=== PATIENT | male | born 1975 | race African-American/Black ===

== ENCOUNTER 2020-09-26 14:40 | Inpatient (IN) ==
[2020-09-26] MEDS ORDERED: DEXAMETHASONE SOD INJ 10 MG/ML VIAL IV ONE (15:14)
[2020-09-26] MEDS ORDERED: ALBUT/IPRATROP 3MG/0.5MG NEB 3 ML VIAL INH STA (15:14)
[2020-09-26 15:42] LABS: INR 1.1 (0.9-1.1); Partial Thromboplastin Ratio 1.1; Partial Thromboplastin Time 29.9 Seconds (21.0-31.0); Prothrombin Time 11.5 Seconds (9.0-12.0)
--- NOTE | 2020-09-26 15:47 | XRay Report ---
XR chest 1V portable CLINICAL HISTORY: Dyspnea COMPARISON STUDY: No previous studies for comparison. FINDINGS: The heart is enlarged. There are multifocal airspace opacity suspicious for a multifocal pn eumonia. Correlation with Covid 19 testing is recommended. There are no large pleural effusions.[ IMPRESSION: Multifocal airspace opacity suspicious for a multifocal pneumonia. Clinical and radiograp hic follow-up is recommended. ACT 112: Negative or not required by law. Electronically signed by: Marcin Humphries M.D. 09/26/2020 3:46 PM
[2020-09-26 15:51] LABS: Albumin Level 3.1 gm/dl (3.4-5.0); BUN Creatinine Ratio 10.2 (10-20); Calcium 8.7 mg/dl (8.5-10.1); Creatinine Clr Calc Pharmacy 120.5 ml/min; Est GFR (African American) 86.2; Est GFR (Non-African American) 74.4; Magnesium 2.6 mg/dl (1.8-2.4); Potassium 3.9 mmol/L (3.5-5.1)
[2020-09-26 15:56] LABS: Albumin Globulin Ratio 0.6 (0.9-2); Bilirubin,Total 0.8 mg/dl (0.2-1); Globulin 4.9 gm/dl (2.5-4.0); Troponin I 0.022 ng/ml (0-0.045)
[2020-09-26 16:19] LABS: Appearance Urine Clear (Clear); Bilirubin Urine Negative (Negative); Blood Urine Trace (Negative); Color Urine Yellow; Glucose Urine UA Negative (Negative); Ketones Urine Negative (Negative); Leukocyte Esterase Urine Negative (Negative); Nitrite Urine Negative (Negative); Protein Urine 1+ (Negative); Specific Gravity Urine 1.006 (1.000-1.030); Urobilinogen Urine Negative (Negative)
[2020-09-26 16:31] LABS: Bacteria Urine Negative (Negative); Epithelial Cell Urine 0-5 /lpf (0-5); RBC Urine 0-4 /hpf (0-4); WBC Urine 0-5 /hpf (0-5)
[2020-09-26 16:34] LABS: Hematocrit (blood only) 48.8 % (42-52); Hemoglobin 13.4 g/dL (14.0-18.0); Mean Corpuscular Hemoglobin 18.8 pg (25-34); Mean Corpuscular Hgb Conc 27.5 g/dL (32-36); Mean Corpuscular Volume 68.4 fL (80-100); Nucleated RBC # (auto) 0.39 K/uL (0-0); Platelet Count 245 K/uL (130-400); RDW Coefficient of Variation 23.7 % (11.5-14.5); RDW Standard Deviation 57.1 fL (36.4-46.3); Red Blood Count 7.13 M/uL (4.7-6.1); White Blood Count 7.77 K/uL (4.8-10.8)
[2020-09-26 16:36] LABS: Anisocytosis Present; Basophils # (auto) 0.05 K/uL (0-0.2); Basophils % (auto) 0.6 %; Eosinophils # (auto) 0.01 K/uL (0-0.5); Eosinophils % (auto) 0.1 %; Immature Granulocytes # (auto) 0.05 K/uL (0.00-0.02); Immature Granulocytes % (auto) 0.6 %; Lymphocytes # (auto) 1.45 K/uL (1.2-3.4); Lymphocytes % (auto) 18.7 %; Microcytosis Present; Monocytes % (auto) 14.2 %; Neutrophils # (auto) 5.11 K/uL (1.4-6.5); Neutrophils % (auto) 65.8 %; Polychromasia 1+
[2020-09-26 16:42] LABS: Influenza A virus by PCR Negative (Negative); Influenza B virus by PCR Negative (Negative)
--- NOTE | 2020-09-26 16:49 | Electrocardiogram Report ---
Test Reason : Blood Pressure : / mmHG Vent. Rate : 089 BPM Atrial Rate : 089 BPM P-R Int : 178 ms QRS Dur : 102 ms QT Int : 366 ms P-R-T Axes : 051 237 068 degrees QTc Int : 445 ms Normal sinus rhythm Possible Left atrial enlargement Poor R wave progression, consider anterior MS vs. lead placement vs. LVH Abnormal ECG No previous ECGs available Confirmed by Archie Valiente ([id number]) on 09/26/2020 4:49:08 PM Referred By: REFERRED SELF Confirmed By:Julio Cesar Valiente
[2020-09-26 17:24] LABS: Influenza A virus by PCR Negative (Neg); Influenza B virus by PCR Negative (Neg); RSV by PCR Negative (Neg)
[2020-09-26 18:02] LABS: SARS CoV2 RNA(COVID-19) InHosp POSITIVE (Negative)
--- NOTE | 2020-09-26 19:05 | History & Physical Report ---
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 Pt states that some of his family has recently had COVID. He isolated from them, however started noticing SOB with exertion over the last few days. It started at rest as well today so he came to the ED. Pt denies fever, abd pain, n/v/c/d, LE pain or swelling. He has been eating without issue. He feels better s/p O2 and steroids. He states a tightness in his chest with the heavy breathing, but no lucas SOB. Pt has recently moved to the area and has had difficulty in setting up a new PCP and urologist. He also uses HS O2 and cannot get this refilled due to needing new docs. Primary Care Provider: Josue Pryor DO Allergies Allergy/AdvReac Type Severity Reaction Status Date / Time lisinopril AdvReac Severe swelling Verified 09/26/20 16:38 of face sulfamethoxazole AdvReac Severe swelling Verified 09/26/20 16:38 [From Bactrim] of face trimethoprim [From Bactrim] AdvReac Severe swelling Verified 09/26/20 16:38 of face Home Medications Medication Instructions Recorded Confirmed Type albuterol sulfate 1 puff INHALATION QID PRN 04/19/20 09/26/20 History amlodipine 5 mg PO DAILY 04/19/20 09/26/20 History hydrochlorothiazide 12.5 mg PO DAILY 04/19/20 09/26/20 History tadalafil 5 mg PO DAILY PRN 04/19/20 09/26/20 History valsartan 160 mg PO DAILY 04/19/20 09/26/20 History carisoprodol [Soma] 250 mg PO HS PRN 09/26/20 09/26/20 History diclofenac sodium [Voltaren] 2 g TOPICAL QID PRN 09/26/20 09/26/20 History Past Med/Surg History Medical History (Updated 09/26/20 @ 19:09 by Billie Elias DO) Hypertension Polycythemia Testicular torsion Surgical History History of arthroscopic knee surgery Social History Smoking Status: Current every day smoker Tobacco Type: Cigarettes Preferred Language: Palauan marital status: Single Current Living Situation: Significant Other current occupational status: employed Feels Safe at Home: Yes Review of Systems Review of Systems: Pertinent positives and negatives reviewed in HPI--all others negative Physical Exam Constitutional: WD/WN, vitals as above + morbidly obese Eyes: normal visual chand by confrontation and + anicteric sclerae Neck: normal visual inspection and trachea midline Respiratory: normal respiratory effort; no respiratory distress Auscultation: + diminished lung sounds and + crackles; no wheezes Cardiovascular: Rate/Rhythm: regular rate and regular rhythm Gastrointestinal (Abdomen): Inspection/Auscultation: abdomen not distended Percussion/Palpation: abdomen soft; abdomen nontender Musculoskeletal: Head/Neck/Chest: normocephalic and head atraumatic negative for edema, peripheral pulses intact Skin: no rashes, warm and dry Neurologic: awake; not confused Speech / Cognition: normal speech Psychiatric: A+Ox3, euthymic affect Results & Data Results & Data ([facility]) Vital Signs (Past 12 Hours) Vital Signs Temp Pulse Pulse Resp BP Pulse Ox 09/26/20 18:00 96 H 22 98 09/26/20 17:30 100 H 24 88 L 09/26/20 16:50 101 H 21 126/91 92 09/26/20 16:30 91 H 20 92 09/26/20 16:03 93 H 24 91 09/26/20 15:57 93 H 24 92 09/26/20 15:30 99 H 24 116/76 92 01/25/21 15:08 98 H 20 104/79 95 09/26/20 14:53 36.9 C 104 H 24 157/111 H 83 L Diagnostic Findings CXR: multifocal PNA ECG Rhythm: normal sinus Code Status & VTE Plan Code Status Full code VTE Prophylaxis Plan VTE Prophylaxis will be ordered: Yes PG Care Time/CCT Total # of Minutes Spent Total Time Spent with Patient: Total time spent is greater than 50% in co ordination of care (as documented) at patient's floor/unit and/or counseling patient: Coding Level of Care Code 11052 Initial Inpt Care Lvl 3 Diagnoses Hypoxia R09.02 Testicular torsion N44.00 Hypertension I10 Polycythemia D75.1 Tobacco use disorder F17.200 DVT prophylaxis Z29.9 TELMA (obstructive sleep apnea) G47.33
[2020-09-26] MEDS ORDERED: DICLOFENAC SOD 1% GEL 100 GM TUBE EXT PRN (20:42)
[2020-09-26] MEDS ORDERED: MAGNESIUM HYDROXIDE SUSP 30 ML UDC PO PRN (20:42)
[2020-09-26] MEDS ORDERED: ALBUTEROL HFA 8 GM INHALER INH PRN (20:42)
[2020-09-26] MEDS ORDERED: NON-FORMULARY MEDICATION (Tadalafil 5 mg Tablet) PO PRN (20:42)
[2020-09-26] MEDS ORDERED: ONDANSETRON INJ 2 MG/ML 2 ML VIAL IV PRN (20:42)
[2020-09-26] MEDS ORDERED: ACETAMINOPHEN 325 MG TAB PO PRN (20:42)
[2020-09-26] MEDS ORDERED: NICOTINE 21 MG/24 HR TDSY TD PRN (20:42)
[2020-09-26] MEDS ORDERED: dexAMETHasone 1 MG TAB PO ONE (21:00)
[2020-09-26] MEDS ORDERED: CARISOPRODOL 350 MG TABLET PO PRN (21:04)
[2020-09-26] MEDS: HEPARIN SOD 5,000 UNIT/0.5 ML VIAL SQ SCH (21:41)
[2020-09-26] MEDS: ALBUT/IPRATROP 3MG/0.5MG NEB 3 ML VIAL NEB SCH (22:02)
[2020-09-27] MEDS: ALBUT/IPRATROP 3MG/0.5MG NEB 3 ML VIAL NEB SCH ×2 (02:11→07:13)
[2020-09-27] MEDS: HEPARIN SOD 5,000 UNIT/0.5 ML VIAL SQ SCH ×3 (05:34→20:54)
[2020-09-27] MEDS ORDERED: ALBUT/IPRATROP 3MG/0.5MG NEB 3 ML VIAL NEB PRN (08:20)
--- NOTE | 2020-09-27 08:21 | Hospitalist Progress Note ---
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, needs a local appt set up prior to d/c (3) Hypertension: not well controlled continue home meds but increase amlodipine and continue valsartan hydralazine and clonidine prn (4) Polycythemia: by history not high hgb at present (5) Tobacco use disorder: Nicotine patch (6) DVT prophylaxis: Lovenox for DVT proph Needs a PCP in the area (7) TELMA (obstructive sleep apnea): Denies TELMA hx, but states he sleeps with home O2 and has been out Unable to refill due to no local PCP Will need rx for this on d/c if so Admission and Anticipated Discharge Date Admission Date: September 26, 2020 Results & Data Results & Data ([facility]) Vital Signs (Past 12 Hours) Vital Signs Temp Pulse Pulse Pulse Resp BP BP 09/27/20 08:00 09/27/20 07:24 97.7 F 84 26 H 138/76 09/27/20 07:13 90 18 09/27/20 03:39 97.9 F 98 H 19 161/92 H 09/27/20 02:11 92 H 20 09/26/20 23:38 98.6 F 89 22 151/80 H 09/26/20 22:05 82 18 09/26/20 21:53 91 H 09/26/20 21:04 98.2 F 88 22 151/90 H 09/26/20 20:43 98.2 F 85 16 151/90 H Pulse Ox Pulse Ox 09/27/20 08:00 91 09/27/20 07:24 92 09/27/20 07:13 92 09/27/20 03:39 95 09/27/20 02:11 97 09/26/20 23:38 93 09/26/20 22:05 90 09/26/20 21:53 09/26/20 21:04 92 09/26/20 20:43 95 95 PG Care Time/CCT Total # of Minutes Spent Total Time Spent with Patient: Total time spent is greater than 50% in coordination of care (as documented) at patient's floor/unit and/or counseling patient: Coding Level of Care Code 13190 Subseq Hosp Care Lvl 3 Diagnoses Hypoxia R09.02 Testicular torsion N44.00 Hypertension I10 Polycythemia D75.1 Tobacco use disorder F17.200 DVT prophylaxis Z29.9 TELMA (obstructive sleep apnea) G47.33
[2020-09-27] MEDS: VALSARTAN 80 MG TAB PO SCH (08:55)
[2020-09-27] MEDS: hydroCHLOROthiazide 25 MG TAB PO SCH (08:56)
[2020-09-27] MEDS ORDERED: amLODIPine BESYLATE 5 MG TAB PO SCH (09:00)
[2020-09-27] MEDS ORDERED: dexAMETHasone 4 MG TAB PO SCH (09:00)
[2020-09-27] MEDS ORDERED: REMDESIVIR 200 MG in SODIUM CHLORIDE 0.9% 210 ML IV ONE (09:00)
[2020-09-27] MEDS ORDERED: SODIUM CHLORIDE 0.9% 10ML FLUSH IV SCH (09:00)
[2020-09-27] MEDS: dexAMETHasone 6 MG in SYRINGE 0 ML IV SCH (10:12)
[2020-09-27] MEDS: BENZONATATE 100 MG CAPSULE PO SCH ×2 (15:02→20:53)
[2020-09-27] MEDS ORDERED: cloNIDine HCL 0.1 MG TAB PO PRN (17:18)
[2020-09-27] MEDS ORDERED: hydrALAZINE HCL 20 MG/ML VIAL IV PRN (17:18)
[2020-09-27] MEDS ORDERED: amLODIPine BESYLATE 5 MG TAB PO STA (17:28)
--- NOTE | 2020-09-27 22:56 | Emergency Department Note ---
Impression & Plan Pneumonia due to 2019 novel coronavirus, Hypoxia, Morbid obesity with BMI of 50.0-59.9, adult ED Provider Note NAME: SHELBY LLOYD AGE: 45 SEX: M ARRIVES VIA: Ambulance INFORMANT: Patient ED PROVIDER(S): Cecily Cruz MD CHIEF COMPLAINT: SOB, cough PLAN: Disposition: Inpatient Condition: Critical Referral: Hospitalist MEDICAL DECISION MAKING: This patient was evaluated and appeared to be in some discomfort. IV access was obtained and laboratory work was drawn. The patient was placed on the parts counter salesperson and noted to be in sinus rhythm at 98bpm. Chest x-ray was performed and reveals patchy bilateral infiltrates consistent with a viral pneumonitis. Patient's Covid swab is positive. Patient did require supplemental nasal cannula oxygen. He was at 6 L nasal cannula. He was given 6 mg of IV dexamethasone. Patient was anxious about his Covid diagnosis. He did receive a DuoNeb treatment and had some improved respiratory symptoms. Patient's case was discussed with the hospitalist service who will evaluate the patient for further management. Triage Nursing notes reviewed Vital Signs: reviewed and remarkable for no significant abnormalities Differential diagnosis: Reactive airway disease, pneumonia, pneumothorax, COPD, CHF, infections, cardiac ischemia, pulmonary embolism, musculoskeletal, gastrointestinal, as well as other pathologies. ER treatment provided: IV dexamethasone DuoNeb Nasal cannula oxygen Diagnostics interpreted by me: ECG: Normal sinus rhythm at 89 bpm. Left atrial enlargement. Poor R wave progression. QTc is 445. No PVC, no PAC. Normal ST segments. Cardiac Monitoring: An order for cardiac monitoring was placed and the patient is noted to be in a normal sinus rhythm at 98 bpm. Laboratory studies: Covid positive Imaging studies: XR chest 1V portable CLINICAL HISTORY: Dyspnea COMPARISON STUDY: No previous studies for comparison. FINDINGS: The heart is enlarged. There are multifocal airspace opacity suspicious for a multifocal pneumonia. Correlation with Covid 19 testing is recommended. There are no large pleural effusions.[ IMPRESSION: Multifocal airspace opacity suspicious for a multifocal pneumonia. Clinical and radiographic follow-up is recommended. ACT 112: Negative or not required by law. Electronically signed by: Marcin Humphries M.D. 09/26/2020 3:46 PM Dictated: 09/26/20 1545Transcribed: 09/26/20 1545 Consultation(s): Hospitalist HPI: 45/M arrives for evaluation of shortness of breath, cough and generalized fatigue. Patient states 2 weeks ago his significant other and her daughter tested positive for Covid. They do live in the same home. Patient began to feel ill within the last several days. He believes he stayed away from his family and in order to avoid bhumika Covid. He does not smoke cigarettes but also has not seen his primary care physician in over a year. He recently moved to our area and has not followed up with a local physician. Patient also does not wear his CPAP, stating he does not "have a neck" and therefore it is uncomfortable. Patient denies any significant fevers, chills, vomiting, abdominal pain or diarrhea. ROS: See above HPI for pertinent positives & negatives. A total of 10 systems reviewed and were otherwise negative. PAST MEDICAL HISTORY:See Below PAST SURGICAL HISTORY:See Below FAMILY HISTORY:See Below SOCIAL HISTORY:See Below HOME MEDICATIONS:See Below ALLERGIES:See Below VITALS:See Below PHYSICAL EXAMINATION: Vital signs reviewed. Noted to be hypoxic, hypertensive General: Chronically ill-appearing, morbidly obese 45-year-old male, on supplemental nasal cannula oxygen HEENT: No scleral icterus, PERRLA, neck supple. Moist mucous membranes Cardiovascular: Regular rate and rhythm, no extra sounds. Pulmonary: Distant breath sounds, generally clear, increased work of breathing. Abdomen: Soft, nontender, nondistended, positive bowel sounds. Musculoskeletal: Atraumatic, positive dependent peripheral edema. Neurologic: Patient awake alert and oriented x 3 Skin: Warm, dry, no rash Cecily Cruz MD Past Med/Surg History Medical History (Updated 09/28/20 @ 18:04 by Cecily Cruz MD) Hypertension Morbid obesity with BMI of 50.0-59.9, adult TELMA (obstructive sleep apnea) Polycythemia Testicular torsion Tobacco use disorder Surgical History History of arthroscopic knee surgery Social History Smoking Status: Current every day smoker Tobacco Type: Cigarettes Second Hand Exposure: No; Do You Dip or Chew Tobacco: No; Tobacco Cessation Education Requested by Patient: No Preferred Language: Upper Sorbian Communication Ability: Effective Beliefs That Will Affect Care: None marital status: Single Current Living Situation: Alone current occupational status: employed Other Information That Helps Us Care for You: No Feels Safe at Home: Yes Safety Concerns: Feels Safe At This Time Assistive Devices: None and Crutches Allergies Allergies Allergy/AdvReac Type Severity Reaction Status Date / Time lisinopril AdvReac Severe swelling Verified 09/26/20 16:38 of face sulfamethoxazole AdvReac Severe swelling Verified 09/26/20 16:38 [From Bactrim] of face trimethoprim [From Bactrim] AdvReac Severe swelling Verified 09/26/20 16:38 of face Home Meds Home Medications Medication Instructions Recorded Confirmed albuterol sulfate 1 puff INHALATION QID PRN 04/19/20 09/26/20 amlodipine 5 mg PO DAILY 04/19/20 09/26/20 hydrochlorothiazide 12.5 mg PO DAILY 04/19/20 09/26/20 tadalafil 5 mg PO DAILY PRN 04/19/20 09/26/20 valsartan 160 mg PO DAILY 04/19/20 09/26/20 carisoprodol [Soma] 250 mg PO HS PRN 09/26/20 09/26/20 diclofenac sodium [Voltaren] 2 g TOPICAL QID PRN 09/26/20 09/26/20 Results & Data (ED) Laboratory Data Result diagrams: 09/28/20 10:13 09/28/20 10:13 Lab Results 09/26/20 09/26/20 09/26/20 Range/Units 15:10 15:10 15:10 WBC 7.77 (4.8-10.8) K/uL RBC 7.13 H (4.7-6.1) M/uL Hgb 13.4 L (14.0-18.0) g/dL Hct 48.8 (42-52) % MCV 68.4 L (80-100) fL MCH 18.8 L (25-34) pg MCHC 27.5 L (32-36) g/dL RDW Std Deviation 57.1 H (36.4-46.3) fL RDW Coeff of Juan 23.7 H (11.5-14.5) % Plt Count 245 (130-400) K/uL Immature Gran % (Auto) 0.6 % Neut % (Auto) 65.8 % Lymph % (Auto) 18.7 % [place] % (Auto) 14.2 % Eos % (Auto) 0.1 % Baso % (Auto) 0.6 % Neut # (Auto) 5.11 (1.4-6.5) K/uL Lymph # (Auto) 1.45 (1.2-3.4) K/uL [place] # (Auto) 1.10 H (0.11-0.59) K/uL Eos # (Auto) 0.01 (0-0.5) K/uL Baso # (Auto) 0.05 (0-0.2) K/uL Immature Gran # (Auto) 0.05 H (0.00-0.02) K/uL Absolute Nucleated RBC 0.39 H (0-0) K/uL Nucleated RBC % (auto) 5.0 % Polychromasia 1+ Anisocytosis Present Microcytosis Present PT 11.5 (9.0-12.0) Seconds INR 1.1 (0.9-1.1) APTT 29.9 (21.0-31.0) Seconds PTT Ratio 1.1 Sodium 132 L (136-145) mmol/L Potassium 3.9 (3.5-5.1) mmol/L Chloride 94 L (98-107) mmol/L Carbon Dioxide 34 H (21-32) mmol/L Anion Gap 4.0 (3-11) BUN 12 (7-18) mg/dl Creatinine 1.19 (0.6-1.4) mg/dl Est Cr Clr Drug Dosing 120.5 ml/min Est GFR ( Amer) 86.2 Est GFR (Non-Af Amer) 74.4 BUN/Creatinine Ratio 10.2 (10-20) Glucose 104 H (70-99) mg/dl Calcium 8.7 (8.5-10.1) mg/dl Magnesium 2.6 H (1.8-2.4) mg/dl Total Bilirubin 0.8 (0.2-1) mg/dl AST 34 (15-37) U/L ALT 42 (12-78) U/L Alkaline Phosphatase 66 (45-117) U/L Troponin I 0.022 (0-0.045) ng/ml Total Protein 8.0 (6.4-8.2) gm/dl Albumin 3.1 L (3.4-5.0) gm/dl Globulin 4.9 H (2.5-4.0) gm/dl Albumin/Globulin Ratio 0.6 L (0.9-2) Urine Color Urine Appearance (Clear) Urine pH (4.5-7.5) Ur Specific [place] (1.000-1.030) Urine Protein (Negative) Urine Glucose (UA) (Negative) Urine Ketones (Negative) Urine Blood (Negative) Urine Nitrite (Negative) Urine Bilirubin (Negative) Urine Urobilinogen (Negative) Ur Leukocyte Esterase (Negative) Urine RBC (0-4) /hpf Urine WBC (0-5) /hpf Ur Epithelial Cells (0-5) /lpf Urine Bacteria (Negative) COVID-19 Eval Order SARS-CoV-2 (PCR) (Negative) Influenza Type A (PCR) (Neg) Influ A Molecular Assay (Negative) Influenza Type B (PCR) (Neg) Influ B Molecular Assay (Negative) RSV (RT-PCR) (Neg) 09/26/20 09/26/20 09/26/20 Range/Units 15:59 15:59 15:59 WBC (4.8-10.8) K/uL RBC (4.7-6.1) M/uL Hgb (14.0-18.0) g/dL Hct (42-52) % MCV (80-100) fL MCH (25-34) pg MCHC (32-36) g/dL RDW Std Deviation (36.4-46.3) fL RDW Coeff of Juan (11.5-14.5) % Plt Count (130-400) K/uL Immature Gran % (Auto) % Neut % (Auto) % Lymph % (Auto) % [place] % (Auto) % Eos % (Auto) % Baso % (Auto) % Neut # (Auto) (1.4-6.5) K/uL Lymph # (Auto) (1.2-3.4) K/uL [place] # (Auto) (0.11-0.59) K/uL Eos # (Auto) (0-0.5) K/uL Baso # (Auto) (0-0.2) K/uL Immature Gran # (Auto) (0.00-0.02) K/uL Absolute Nucleated RBC (0-0) K/uL Nucleated RBC % (auto) % Polychromasia Anisocytosis Microcytosis PT (9.0-12.0) Seconds INR (0.9-1.1) APTT (21.0-31.0) Seconds PTT Ratio Sodium (136-145) mmol/L Potassium (3.5-5.1) mmol/L Chloride (98-107) mmol/L Carbon Dioxide (21-32) mmol/L Anion Gap (3-11) BUN (7-18) mg/dl Creatinine (0.6-1.4) mg/dl Est Cr Clr Drug Dosing ml/min Est GFR ( Amer) Est GFR (Non-Af Amer) BUN/Creatinine Ratio (10-20) Glucose (70-99) mg/dl Calcium (8.5-10.1) mg/dl Magnesium (1.8-2.4) mg/dl Total Bilirubin (0.2-1) mg/dl AST (15-37) U/L ALT (12-78) U/L Alkaline Phosphatase (45-117) U/L Troponin I (0-0.045) ng/ml Total Protein (6.4-8.2) gm/dl Albumin (3.4-5.0) gm/dl Globulin (2.5-4.0) gm/dl Albumin/Globulin Ratio (0.9-2) Urine Color Yellow Urine Appearance Clear (Clear) Urine pH 6.0 (4.5-7.5) Ur Specific [place] 1.006 (1.000-1.030) Urine Protein 1+ H (Negative) Urine Glucose (UA) Negative (Negative) Urine Ketones Negative (Negative) Urine Blood Trace H (Negative) Urine Nitrite Negative (Negative) Urine Bilirubin Negative (Negative) Urine Urobilinogen Negative (Negative) Ur Leukocyte Esterase Negative (Negative) Urine RBC 0-4 (0-4) /hpf Urine WBC 0-5 (0-5) /hpf Ur Epithelial Cells 0-5 (0-5) /lpf Urine Bacteria Negative (Negative) COVID-[address] CovFluRsv at [facility] SARS-CoV-2 (PCR) (Negative) Influenza Type A (PCR) (Neg) Influ A Molecular Assay Negative (Negative) Influenza Type B (PCR) (Neg) Influ B Molecular Assay Negative (Negative) RSV (RT-PCR) (Neg) 09/26/20 Range/Units 15:59 WBC (4.8-10.8) K/uL RBC (4.7-6.1) M/uL Hgb (14.0-18.0) g/dL Hct (42-52) % MCV (80-100) fL MCH (25-34) pg MCHC (32-36) g/dL RDW Std Deviation (36.4-46.3) fL RDW Coeff of Juan (11.5-14.5) % Plt Count (130-400) K/uL Immature Gran % (Auto) % Neut % (Auto) % Lymph % (Auto) % [place] % (Auto) % Eos % (Auto) % Baso % (Auto) % Neut # (Auto) (1.4-6.5) K/uL Lymph # (Auto) (1.2-3.4) K/uL [place] # (Auto) (0.11-0.59) K/uL Eos # (Auto) (0-0.5) K/uL Baso # (Auto) (0-0.2) K/uL Immature Gran # (Auto) (0.00-0.02) K/uL Absolute Nucleated RBC (0-0) K/uL Nucleated RBC % (auto) % Polychromasia Anisocytosis Microcytosis PT (9.0-12.0) Seconds INR (0.9-1.1) APTT (21.0-31.0) Seconds PTT Ratio Sodium (136-145) mmol/L Potassium (3.5-5.1) mmol/L Chloride (98-107) mmol/L Carbon Dioxide (21-32) mmol/L Anion Gap (3-11) BUN (7-18) mg/dl Creatinine (0.6-1.4) mg/dl Est Cr Clr Drug Dosing ml/min Est GFR ( Amer) Est GFR (Non-Af Amer) BUN/Creatinine Ratio (10-20) Glucose (70-99) mg/dl Calcium (8.5-10.1) mg/dl Magnesium (1.8-2.4) mg/dl Total Bilirubin (0.2-1) mg/dl AST (15-37) U/L ALT (12-78) U/L Alkaline Phosphatase (45-117) U/L Troponin I (0-0.045) ng/ml Total Protein (6.4-8.2) gm/dl Albumin (3.4-5.0) gm/dl Globulin (2.5-4.0) gm/dl Albumin/Globulin Ratio (0.9-2) Urine Color Urine Appearance (Clear) Urine pH (4.5-7.5) Ur Specific [place] (1.000-1.030) Urine Protein (Negative) Urine Glucose (UA) (Negative) Urine Ketones (Negative) Urine Blood (Negative) Urine Nitrite (Negative) Urine Bilirubin (Negative) Urine Urobilinogen (Negative) Ur Leukocyte Esterase (Negative) Urine RBC (0-4) /hpf Urine WBC (0-5) /hpf Ur Epithelial Cells (0-5) /lpf Urine Bacteria (Negative) COVID-19 Eval Order SARS-CoV-2 (PCR) POSITIVE A* (Negative) Influenza Type A (PCR) Negative (Neg) Influ A Molecular Assay (Negative) Influenza Type B (PCR) Negative (Neg) Influ B Molecular Assay (Negative) RSV (RT-PCR) Negative (Neg) Administered Medications Albuterol (Albuterol Hfa 8 Gm Inhaler) 1 puffs INH QID PRN PRN Reason: Shortness Of Breath Or Wheezing Stop: 10/26/20 20:41 Last Admin: 09/27/20 23:48 Dose: 1 puffs Documented by: [id number] Amlodipine Besylate (Amlodipine Besylate 5 Mg Tab) 10 mg PO DAILY [facility] Stop: 10/28/20 08:59 Last Admin: 09/28/20 08:28 Dose: 10 mg Documented by: [id number] Benzonatate (Benzonatate 100 Mg Capsule) 100 mg PO TID [facility] Stop: 10/27/20 13:59 Last Admin: 09/28/20 15:29 Dose: 100 mg Documented by: [id number] Admin: 09/28/20 08:28 Dose: 100 mg Documented by: [id number] Admin: 09/27/20 20:53 Dose: 100 mg Documented by: [id number] Admin: 09/27/20 15:02 Dose: 100 mg Documented by: [id number] Hydrochlorothiazide (Hydrochlorothiazide 25 Mg Tab) 12.5 mg PO DAILY [facility] Stop: 10/27/20 08:59 Last Admin: 09/28/20 08:27 Dose: 12.5 mg Documented by: [id number] Admin: 09/27/20 08:56 Dose: 12.5 mg Documented by: [id number] Dexamethasone 6 mg/ Syringe 1.5 mls @ 1 mls/min IV DAILY [facility] Stop: 10/27/20 08:59 Last Admin: 09/28/20 08:29 Dose: 1 mls/min Documented by: [id number] Admin: 09/27/20 10:12 Dose: 1 mls/min Documented by: [id number] Remdesivir 100 mg/ Sodium (Chloride) 250 mls @ 250 mls/hr IV Q24H [facility]; Protocol Stop: 10/01/20 12:59 Last Infusion: 09/28/20 13:10 Dose: 0 mls/hr Documented by: [id number] Admin: 09/28/20 12:07 Dose: 250 mls/hr Documented by: [id number] Miscellaneous (Remove Nicoderm Patch) 1 ea N/A DAILY@0859 [facility] Stop: 10/27/20 08:58 Last Admin: 09/28/20 08:30 Dose: Not Given Documented by: [id number] Admin: 09/27/20 08:54 Dose: Not Given Documented by: [id number] Sodium Chloride (Sodium Chloride 0.9% 10ml Flush) 30 ml IV Q24H [facility] Stop: 10/01/20 13:01 Last Admin: 09/28/20 13:28 Dose: 30 ml Documented by: [id number] Valsartan (Valsartan 80 Mg Tab) 160 mg PO DAILY [facility] Stop: 10/27/20 08:59 Last Admin: 09/28/20 08:26 Dose: 160 mg Documented by: [id number] Admin: 09/27/20 08:55 Dose: 160 mg Documented by: [id number] Discontinued Medications Albuterol (Albut/Ipratrop 3mg/0.5mg Neb 3 Ml Vial) 3 ml INH NOW STA Stop: 09/26/20 15:15 Last Admin: 09/26/20 16:03 Dose: 3 ml Documented by: [id number] Albuterol (Albut/Ipratrop 3mg/0.5mg Neb 3 Ml Vial) 3 ml NEB Q4R [facility] Stop: 10/26/20 22:59 Last Admin: 09/27/20 07:13 Dose: 3 ml Documented by: [id number] Admin: 09/27/20 02:11 Dose: 3 ml Documented by: [id number] Admin: 09/26/20 22:02 Dose: 3 ml Documented by: [id number] Amlodipine Besylate (Amlodipine Besylate 5 Mg Tab) 5 mg PO DAILY [facility] Stop: 10/27/20 08:59 Last Admin: 09/27/20 08:56 Dose: 5 mg Documented by: [id number] Amlodipine Besylate (Amlodipine Besylate 5 Mg Tab) 5 mg PO NOW STA Stop: 09/27/20 17:29 Last Admin: 09/27/20 18:34 Dose: Not Given Documented by: [id number] Dexamethasone (Dexamethasone Sod Inj 10 Mg/Ml Vial) 6 mg IV NOW ONE Stop: 09/26/20 15:15 Last Admin: 09/26/20 15:58 Dose: 6 mg Documented by: [id number] Dexamethasone (Dexamethasone 1 Mg Tab) 6 mg PO NOW ONE Stop: 09/26/20 21:01 Last Admin: 09/26/20 21:40 Dose: 6 mg Documented by: [id number] Heparin Sodium (Porcine) (Heparin Sod 5,000 Unit/0.5 Ml Vial) 5,000 units SQ Q8 [facility] Stop: 10/26/20 21:59 Last Admin: 09/28/20 05:47 Dose: 5,000 units Documented by: [id number] Admin: 09/27/20 20:54 Dose: 5,000 units Documented by: [id number] Admin: 09/27/20 14:23 Dose: 5,000 units Documented by: [id number] Admin: 09/27/20 05:34 Dose: 5,000 units Documented by: [id number] Admin: 09/26/20 21:41 Dose: 5,000 units Documented by: [id number] Remdesivir 200 mg/ Sodium (Chloride) 250 mls @ 125 mls/hr IV 0900 ONE; Protocol Stop: 09/27/20 10:59 Last Infusion: 09/27/20 12:15 Dose: 0 mls/hr Documented by: [id number] Admin: 09/27/20 10:12 Dose: 125 mls/hr Documented by: [id number] Sodium Chloride (Sodium Chloride 0.9% 10ml Flush) 30 ml IV Q24H [facility] Stop: 09/27/20 12:00 Last Admin: 09/27/20 13:15 Dose: 30 ml Documented by: [id number] Discharge Plan Visit Data Chief Complaint: Shortness of Breath/Dyspnea ED Provider: Cecily Cruz Discharge Problem: Pneumonia due to 2019 novel coronavirus, Hypoxia, Morbid obesity with BMI of 50.0-59.9, adult Patient Disposition: Admitted As Inpatient Discharge Instructions Interventions: ED Discharge Assessment Last Done: 09/26/20 20:05
[2020-09-28] MEDS: HEPARIN SOD 5,000 UNIT/0.5 ML VIAL SQ SCH (05:47)
[2020-09-28] MEDS: VALSARTAN 80 MG TAB PO SCH (08:26)
[2020-09-28] MEDS: hydroCHLOROthiazide 25 MG TAB PO SCH (08:27)
[2020-09-28] MEDS: amLODIPine BESYLATE 5 MG TAB PO SCH (08:28)
[2020-09-28] MEDS: BENZONATATE 100 MG CAPSULE PO SCH ×3 (08:28→20:27)
[2020-09-28] MEDS: dexAMETHasone 6 MG in SYRINGE 0 ML IV SCH (08:29)
[2020-09-28 11:03] LABS: Hematocrit (blood only) 51.6 % (42-52); Hemoglobin 14.1 g/dL (14.0-18.0); Mean Corpuscular Hemoglobin 19.1 pg (25-34); Mean Corpuscular Hgb Conc 27.3 g/dL (32-36); Mean Corpuscular Volume 69.9 fL (80-100); Nucleated RBC # (auto) 0.32 K/uL (0-0); Nucleated RBC % (auto) 2.7 %; Platelet Count 305 K/uL (130-400); RDW Coefficient of Variation 24.1 % (11.5-14.5); RDW Standard Deviation 59.5 fL (36.4-46.3); Red Blood Count 7.38 M/uL (4.7-6.1); White Blood Count 11.78 K/uL (4.8-10.8)
[2020-09-28 11:18] LABS: BUN Creatinine Ratio 19.8 (10-20); Calcium 9.1 mg/dl (8.5-10.1); Creatinine Clr Calc Pharmacy 111.7 ml/min; Est GFR (African American) 76.9; Est GFR (Non-African American) 66.4; Potassium 4.3 mmol/L (3.5-5.1)
[2020-09-28] MEDS: REMDESIVIR 100 MG in SODIUM CHLORIDE 0.9% 230 ML IV SCH (12:07)
[2020-09-28] MEDS: SODIUM CHLORIDE 0.9% 10ML FLUSH IV SCH (13:28)
--- NOTE | 2020-09-28 16:19 | Hospitalist Progress Note ---
Date of Service September 28, 2020 Assessment & Plan (1) Hypoxia: acute hypoxic respiratory failure secondary to covid pneumonia influenza negative CXR 09/26/20 Multifocal airspace opacity suspicious for a multifocal pneumonia Started on dexamethasone in the ED, continue 6mg QD remdesivir started due to hypoxia Nebclyde prefers a scheduled at bedtime neb and then as needed otherwise using his albuterol inhaler at his bedside holding on abx for now given WBC WNL procalcitonin checked on 09/28 also found to be negative As mentioned in the subjective portion I spent a prolonged time with this patient in his room proximately from 10 40-11 35 AM on 09/28/2020 as patient was unhappy about many things including some of the physical origins of the room etc. 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, needs a local appt set up prior to d/c (3) Hypertension: not well controlled continue home meds but increase amlodipine and continue valsartan hydralazine and clonidine prn (4) Polycythemia: by history not high hgb at present (5) Tobacco use disorder: Nicotine patch patient counseled on smoking cessation (6) DVT prophylaxis: Lovenox for DVT proph Needs a PCP in the area (7) TELMA (obstructive sleep apnea): Denies TELMA hx, but states he sleeps with home O2 and has been out Unable to refill due to no local PCP Will need rx for this on d/c if so Admission and Anticipated Discharge Date Admission Date: September 26, 2020 Subjective Patient is markedly upset upon my entering the room apparently nursing staff has been challenging for him especially in the evening hours. We talked at length thinks approximately spent from 10 40-11 35 in his room a.m. on 09/28/2020 patient is now agreeable to stay in the hospital until we have his oxygen saturation reduced and possibly complete his remdesivir course but as of Saturday most likely Review of Systems Review of Systems: Mild distress and fatigue no headache, blurry or double vision no speech or swallowing issues no chest pain, pressure or palpitations Persistent shortness of breath, nonproductive cough no wheezes no abdominal pain, nausea or vomiting, loose bowel movements but not diarrhea no dysuria, hematuria or frequency no focal joint pain or swelling no back pain, CVA tenderness or radicular pain no bruising, bleeding or rashes no focal signs of weakness or numbness or altered sensation no complaints of anxiety or depression.. Physical Exam Physical Exam: The patient appeared well nourished and normally developed. Is morbidly obese with a BMI of 54 Vital signs as documented. Head exam is normocephalic atraumatic no scleral icterus Neck is without JVD, thyromegaly, or carotid bruits. Lungs are all lung chand Cardiac exam, Rhythm is regular.. No murmurs, rubs or gallops. Abdominal exam reveals normal bowel sounds, soft non tender, no masses Extremities are nonedematous and both pedal pulses are present Neurologic exam is alert and oriented, no focal loss of strength or sensation Skin is without bruises or rashes Psychologically is without concerns for anxiety or depression. Results & Data Results & [facility] ([facility]) Vital Signs (Past 12 Hours) Vital Signs Temp Pulse Pulse Resp BP Pulse Ox Pulse Ox 09/28/20 15:29 98.2 F 92 H 22 161/53 H 93 09/28/20 11:28 98.2 F 83 20 140/87 91 09/28/20 09:00 92 09/28/20 08:41 97.5 F L 75 20 128/80 91 09/28/20 08:21 97.9 F 68 20 141/57 H 93 93 09/28/20 07:00 67 PG Care Time/CCT Total # of Minutes Spent Total Time Spent with Patient: Total time spent is greater than 50% in coordination of care (as documented) at patient's floor/unit and/or counseling patient: Coding Level of Care Code 68828 Subseq Hosp Care Lvl 3 Diagnoses Hypoxia R09.02 Testicular torsion N44.00 Hypertension I10 Polycythemia D75.1 Tobacco use disorder F17.200 DVT prophylaxis Z29.9 TELMA (obstructive sleep apnea) G47.33 Time Spent (min) 55
--- NOTE | 2020-09-28 16:25 | Billing Data ---
Date of Service September 28, 2020 Coding Level of Care Code 41795 Prolonged Care (int'l) Time Spent (min) 20
[2020-09-28] MEDS ORDERED: CIPROFLOXACIN HCL 0.3% OP SOLN 2.5 ML BTL OP PRN (17:09)
[2020-09-28] MEDS: ALBUT/IPRATROP 3MG/0.5MG NEB 3 ML VIAL NEB SCH (19:16)
[2020-09-28] MEDS: ENOXAPARIN INJ 40 MG/0.4 ML SYR SQ SCH (20:27)
[2020-09-29] MEDS: ENOXAPARIN INJ 40 MG/0.4 ML SYR SQ SCH ×2 (08:24→21:09)
[2020-09-29] MEDS: hydroCHLOROthiazide 25 MG TAB PO SCH (08:24)
[2020-09-29] MEDS: BENZONATATE 100 MG CAPSULE PO SCH ×3 (08:24→21:09)
[2020-09-29] MEDS: amLODIPine BESYLATE 5 MG TAB PO SCH (08:24)
[2020-09-29] MEDS: dexAMETHasone 6 MG in SYRINGE 0 ML IV SCH (08:25)
[2020-09-29] MEDS: VALSARTAN 80 MG TAB PO SCH (08:25)
[2020-09-29] MEDS: REMDESIVIR 100 MG in SODIUM CHLORIDE 0.9% 230 ML IV SCH (11:33)
[2020-09-29] MEDS: SODIUM CHLORIDE 0.9% 10ML FLUSH IV SCH (12:47)
--- NOTE | 2020-09-29 18:24 | Hospitalist Progress Note ---
Date of Service September 29, 2020 Assessment & Plan (1) Hypoxia: acute hypoxic respiratory failure secondary to covid pneumonia influenza negative CXR 09/26/20 Multifocal airspace opacity suspicious for a multifocal pneumonia Started on dexamethasone in the ED, continue 6mg QD remdesivir started due to hypoxia Nebs prefers a scheduled at bedtime neb and then as needed otherwise using his albuterol inhaler at his bedside holding on abx for now given WBC WNL procalcitonin checked on 09/28 also found to be negative 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, needs a local appt set up prior to d/c (3) Hypertension: not well controlled continue home meds but increase amlodipine and continue valsartan hydralazine and clonidine prn blood pressure much better now that he is agreeable to stay (4) Polycythemia: by history not high hgb at present (5) Tobacco use disorder: Nicotine patch patient counseled on smoking cessation (6) DVT prophylaxis: Lovenox for DVT proph Needs a PCP in the area (7) TELMA (obstructive sleep apnea): Denies TELMA hx, but states he sleeps with home O2 and has been out Unable to refill due to no local PCP Will need rx for this on d/c if so Admission and Anticipated Discharge Date Admission Date: September 26, 2020 Subjective pt feeling much better, patient is now agreeable to stay in the hospital until we have his oxygen saturation reduced and possibly complete his remdesivir course Review of Systems Review of Systems: Mild distress and fatigue no headache, blurry or double vision no speech or swallowing issues no chest pain, pressure or palpitations Persistent shortness of breath, nonproductive cough no wheezes no abdominal pain, nausea or vomiting, loose bowel movements but not diarrhea no dysuria, hematuria or frequency no focal joint pain or swelling no back pain, CVA tenderness or radicular pain no bruising, bleeding or rashes no focal signs of weakness or numbness or altered sensation no complaints of anxiety or depression.. Physical Exam Physical Exam: The patient appeared well nourished and normally developed. Is morbidly obese with a BMI of 54 Vital signs as documented. Head exam is normocephalic atraumatic no scleral icterus Neck is without JVD, thyromegaly, or carotid bruits. Lungs are all lung chand Cardiac exam, Rhythm is regular.. No murmurs, rubs or gallops. Abdominal exam reveals normal bowel sounds, soft non tender, no masses Extremities are nonedematous and both pedal pulses are present Neurologic exam is alert and oriented, no focal loss of strength or sensation Skin is without bruises or rashes Psychologically is without concerns for anxiety or depression. Results & Data Results & Data ([facility]) Vital Signs (Past 12 Hours) Vital Signs Temp Pulse Pulse Resp BP Pulse Ox Pulse Ox 09/29/20 15:27 98.6 F 91 H 22 138/85 93 09/29/20 15:07 102 H 09/29/20 10:57 97.9 F 85 18 139/59 L 90 09/29/20 09:00 91 09/29/20 07:30 92 09/29/20 07:14 97.5 F L 77 18 133/45 L 91 PG Care Time/CCT Total # of Minutes Spent Total Time Spent with Patient: Total time spent is greater than 50% in coordination of care (as documented) at patient's floor/unit and/or counseling patient: Coding Level of Care Code 40664 Subseq Hosp Care Lvl 3 Diagnoses Hypoxia R09.02 Testicular torsion N44.00 Hypertension I10 Polycythemia D75.1 Tobacco use disorder F17.200 DVT prophylaxis Z29.9 TELMA (obstructive sleep apnea) G47.33
[2020-09-29] MEDS: ALBUT/IPRATROP 3MG/0.5MG NEB 3 ML VIAL NEB SCH (19:45)
[2020-09-30] MEDS: amLODIPine BESYLATE 5 MG TAB PO SCH (08:50)
[2020-09-30] MEDS: hydroCHLOROthiazide 25 MG TAB PO SCH (08:50)
[2020-09-30] MEDS: VALSARTAN 80 MG TAB PO SCH (08:50)
[2020-09-30] MEDS: dexAMETHasone 6 MG in SYRINGE 0 ML IV SCH (08:51)
[2020-09-30] MEDS: BENZONATATE 100 MG CAPSULE PO SCH ×2 (08:51→13:06)
[2020-09-30] MEDS: ENOXAPARIN INJ 40 MG/0.4 ML SYR SQ SCH (08:51)
[2020-09-30] MEDS: REMDESIVIR 100 MG in SODIUM CHLORIDE 0.9% 230 ML IV SCH (11:21)
[2020-09-30] MEDS: SODIUM CHLORIDE 0.9% 10ML FLUSH IV SCH (12:25)
--- NOTE | 2020-09-30 16:51 | Discharge Summary ---
Date of Service September 30, 2020 Principal Diagnosis covid pneumonia acute hypoxic respiratory failure morbid obesity as a risk for covid BMI 54 Discharge Exam The patient appeared to be improving still requiring some oxygen Vital signs as documented. Lungs are diminished throughout but with no rales or wheezes Cardiac exam, Rhythm is regular.. No murmurs, rubs or gallops. Abdominal exam reveals normal bowel sounds, soft non tender, no masses Extremities are nonedematous and both pedal pulses are normal. Neurologic exam is alert and oriented, no focal loss of strength or sensation Skin is without bruises or rashes Psychologically is without concerns for anxiety or depression. Discharge Data Allergies Allergy/AdvReac Type Severity Reaction Status Date / Time lisinopril AdvReac Severe swelling Verified 09/26/20 16:38 of face sulfamethoxazole AdvReac Severe swelling Verified 09/26/20 16:38 [From Bactrim] of face trimethoprim [From Bactrim] AdvReac Severe swelling Verified 09/26/20 16:38 of face Consultations 09/26/20 16:40 ED Decision to Admit Stat Hospital Course (1) Hypoxia: acute hypoxic respiratory failure secondary to covid pneumonia influenza negative CXR 09/26/20 Multifocal airspace opacity suspicious for a multifocal pneumonia Started on dexamethasone in the ED, continue 6mg QD for 5 additional days after discharge remdesivir started due to hypoxia patient completed 4-5 doses did request to go home compromise at completing the 4-5 doses Nebs as needed WBC WNL procalcitonin checked on 09/28 also found to be negative 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 He had difficulties with the social isolation and the hospital stay. At 1 point time he almost decided to leave. We did make a compromise in agreement that he would stay till Saturday which would give him 4-5 remdesivir doses and also dexamethasone for 5 doses. Patiently sent home on additional dexamethasone he is set up for home oxygen and he will continue to convalesce at home. It is felt that if he goes home without the last dose of the remdesivir it would be worthwhile given his stress and anxiety he has while at hospital. 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, needs a local appt set up prior to d/c contact the urology office they will call him for an appointment (3) Hypertension: not well controlled continue home meds amlodipine and continue valsartan Patient is committed to lifestyle modification to help his comorbid health problems (4) Polycythemia: by history not high hgb at present (5) Tobacco use disorder: Nicotine patch patient counseled on smoking cessation (6) DVT prophylaxis: Needs a PCP in the area arrange PCP follow-up in [facility] (7) TELMA (obstructive sleep apnea): Denies TELMA hx, but states he sleeps with home O2 and has been out Unable to refill due to no local PCP Patient sent home on oxygen for his Covid treatment may have a formal sleep s tudy in the future however states he is committed to losing weight Total Time Total Time Spent Total Time Spent (In Minutes): It required greater than 30 minutes to prepare this patient for discharge Discharge Plan Discharge Items Patient Disposition: Home - Self-Care Reason For Visit: Covid Discharge Diagnosis: covid pneumonia Activity: Per Instructions section Activity Comment: slowly increase activity while wearing oxygen Non-emergency contact: Primary Care Provider, Care Management Associate and Urologist Call non-emergency contact if: you have any medication questions and your symptoms worsen Follow-up/Referrals: Romy Wells DO [Physician] - 10/07/20 7:45 am ([facility] Cardiology office will call you to schedule a follow up apt. [facility] Urology office will call you to schedule a follow up apt.) Josue Pryor DO [Primary Care Provider] - Diet: Carb Consistent or DM2 and Low Sodium (2gm) Addtl Attending Provider Instructions: please rest and recover limit your physical exertion while on oxygen please try to stop smoking, you may use nicotine patch or gum over the counter complete your prescription of Decadron, tell the pharmacy to keep your nebulizer prescription on file Pending Studies at Discharge: No Stand-Alone Forms: [facility], Smoking Cessation Medications and DC Order Prescriptions: New ipratropium-albuterol 0.5 mg-3 mg(2.5 mg base)/3 mL Solution For Nebulization 3 ml NEB Q4R PRN (Reason: shortness of breath) Qty: 1 RF: 0 benzonatate [Tessalon Perles] 100 mg Capsule 100 mg PO TID Qty: 18 RF: 0 dexamethasone [Decadron] 6 mg tablet 6 mg PO DAILY Qty: 5 RF: 0 Continued amlodipine 5 mg Tablet 5 mg PO DAILY RF: 0 albuterol sulfate 90 mcg/actuation Hfa Aerosol Inhaler 1 puff INHALATION QID PRN (Reason: Shortness Of Breath Or Wheezing) RF: 0 valsartan 160 mg Tablet 160 mg PO DAILY RF: 0 tadalafil 5 mg Tablet 5 mg PO DAILY PRN (Reason: Erectile Dysfunction) RF: 0 hydrochlorothiazide 12.5 mg Tablet 12.5 mg PO DAILY RF: 0 carisoprodol [Soma] 250 mg tablet 250 mg PO HS PRN (Reason: Muscle Pain) RF: 0 diclofenac sodium [Voltaren] 1 % gel 2 g topical QID PRN (Reason: Muscle Pain) RF: 0 Discharge Orders: Discharge Order (Routine); Ordered 09/30/20 Ordered By: Tae Reilly Admission Data Admit Date/Time: 09/26/20 19:08 Attending Provider: Tae Reilly Admit Provider: Billie Elias Primary Care Provider: Josue Pryor Other Providers: Billie Elias Other Interventions: Discharge Summary Assessment (RN) Last Done: 09/30/20 14:12 Coding Level of Care Code D/C Day Management >30 mins Diagnoses Hypoxia R09.02 Testicular torsion N44.00 Hypertension I10 Polycythemia D75.1 Tobacco use disorder F17.200 DVT prophylaxis Z29.9 TELMA (obstructive sleep apnea) G47.33
== END 2020-09-30 15:40 | disposition home or self-care (01) | DRG 177 ==
LOC: ED 14:40 → SUATTDRO 19:08 → 2S 19:08

== ENCOUNTER 2020-12-10 22:37 | Observation (INO) ==
[2020-12-10] MEDS ORDERED: methylPREDNISolone 125 MG/2 ML VIAL IV STA (23:21)
[2020-12-10] MEDS ORDERED: ALBUT/IPRATROP 3MG/0.5MG NEB 3 ML VIAL NEB ONE (23:21)
[2020-12-10] MEDS ORDERED: KETOROLAC 30 MG/ML VIAL IV ONE (23:21)
[2020-12-10] MEDS ORDERED: MAGNESIUM SULFATE / D5W 1 GM/100 ML BAG IV STA (23:22)
--- NOTE | 2020-12-10 23:47 | Emergency Department Note ---
Impression & Plan Acute kidney injury superimposed on CKD, Elevated troponin I level, Rhabdomyolysis, Personal history of COVID-19 ED Provider Note NAME: SHELBY LLOYD AGE: 45 SEX: M : 1975 ARRIVES VIA: Walk-In INFORMANT: Patient, ED PROVIDER(S): Toñito Pope MD CHIEF COMPLAINT: Body pain HPI: This is a 45-year-old male who presents emergency department complaining of generalized aches and pains. Patient reports he has had reconstructive surgery done to his testicle as well as his left bicep and left knee. He reports he had the Covid vaccine on and has not felt well ever since. The patient arrives to the emergency department hypoxic however he is insisting he is not hypoxic and that our equipment does not work correctly. He has not taken anything for the aches and pains although he took Tylenol on with some improvement. He has a history of asthma. He reports any movement makes the pain much worse however rest makes the pain better. He describes the pain is body aches ROS: See above HPI for pertinent positives & negatives. A total of 10 systems reviewed and were otherwise negative. PAST MEDICAL HISTORY: See Below PAST SURGICAL HISTORY: See Below FAMILY HISTORY: See Below SOCIAL HISTORY: See Below HOME MEDICATIONS: See Below ALLERGIES: See Below VITALS: See Below PHYSICAL EXAMINATION: VITAL SIGNS - Vital signs and nursing notes were reviewed. GENERAL - 45-year-old male appearing stated age who is in no acute distress. Belligerent and cursing at this provider upon my arrival to the room SKIN - Without rashes. HEAD - NC/AT. EYES - PERRL with EOMI bilaterally. Sclera anicteric. Palpebral conjunctiva pink and moist with no injection noted. EARS - No deformities of external structures noted on gross examination bilaterally. NOSE - Midline and without cyanosis. No epistaxis or purulent drainage noted. Septum midline without deviation or septal hematoma noted. MOUTH/OROPHARYNX - Without perioral cyanosis. Buccal mucosa pink and moist and without leukoplakia. Tongue midline with equal elevation of palate bilaterally. No tonsillar hypertrophy, erythema, or exudates noted. NECK - Neck with FROM. Supple to palpation. lymphadenopathy noted. No nuchal rigidity. LUNGS - Chest wall symmetric without accessory muscle use, intercostals retractions, or central cyanosis. Normal vesicular breath sounds CTA B/L. No wheezes, rales, or rhonchi appreciated. CARDIAC - RRR with S1/S2. No murmur, rubs, or gallops appreciated. ABDOMEN - Abdominal contour without pulsations or visible masses. BS normoactive all four quadrants. No tenderness, palpable masses, hepatosplenomegaly, or ascites noted. EXTREMITIES - No clubbing or peripheral cyanosis. No pretibial edema present. +3/5 radial, posterior tibial, and dorsalis pedis pulses palpated throughout. +5/5 strength noted in UE/LE bilaterally. NEUROLOGIC - Cranial nerves II through XII grossly intact. Sensory intact to light touch throughout. Patellar reflexes +2/4. PSYCH - A&Ox3 and cooperates fully with examiner. Pt is very pleasant and interacts well with examiner. MEDICAL DECISION MAKING: Patient was seen and evaluated as above in room C5. Review was performed of nursing notes and vital signs. I did review pertinent previous visits and patient history. After obtaining a thorough history and physical examination the above work up was performed. It should be noted that this patient presented significant barriers to his own care. The patient arrives belligerent and cursing and hypoxic. He continues to curse and is threatening to call his supplier quality engineering manager despite refusing basic recommendations including oxygen. I verbally deescalated the patient several times and noted he is probably feeling so sore and agitated because his oxygen level was so low. The patient is insisting that is not his oxygen level. I did bring the patient's back to his room to try and calm the patient down. I did offer to give the patient medication including Ativan to try and calm him. He did eventually consent to a chest x-ray as well as laboratory work and an hour-long breathing treatment. He was given Toradol Solu-Medrol as well as magnesium. While in the department, I personally reevaluated the patient several times and each time the patient was found to be resting comfortably. The patient was educated upon management, educated upon todays findings/results, educated upon importance of follow up from today's visit, educated upon symptoms in which to return, had questions answered prior to discharge, verbalized understanding, and was discharged home in good condition. An order was placed for continuous cardiac monitoring. The monitor shows a rate of 103 with Normal Sinus rhythm. The patient was evaluated during a period of high volume and high acuity during the global COVID-19 pandemic, and that diagnosis was suspected/considered upon their initial presentation. Their evaluation, treatment and testing was consistent with current guidelines for patients who present with complaints or symptoms that may be related to COVID-19. Patient was seen while provider was wearing PPE. Triage Nursing notes reviewed. Prior medical records reviewed Vital Signs: reviewed and remarkable for no significant abnormalities Differential diagnosis: Reactive airway disease, pneumonia, pneumothorax, COPD, CHF, infections, cardiac ischemia, pulmonary embolism, musculoskeletal, gastrointestinal, as well as other pathologies. ER treatment provided: See below Diagnostics interpreted by me: ECG: EKG shows a sinus tachycardia no ST elevation or depression possible left atrial enlargement right superior axis deviation old anterior infarct QTC is 476 ventricular rate is 103 EKG is compared to 26 September 2020 and no significant changes noted. Laboratory studies: As stated above and show below. Imaging studies: A 1 view of the chest was interpreted by me shows no evidence of pneumonia congestion or pneumothorax. Ultrasound venous bilateral lower extremities: No pole cutter evidence of DVT involving the bilateral lower extremities. Consultation(s): Internal Medicine Critical Care: I have personally spent greater than 30 minutes of critical care time in the direct management of this patient. This includes bedside care, interpretation of diagnostic studies, and testing, discussion with consultants, patient, and family members, and other required patient management activities. This 30 minutes is in excess of all separately billable procedures. Past Med/Surg History Medical History (Updated 12/11/20 @ 06:13 by Toñito Pope MD) Hypertension Hypoxia Morbid obesity with BMI of 50.0-59.9, adult TELMA (obstructive sleep apnea) Pneumonia due to 2019 novel coronavirus Polycythemia Tear of left biceps muscle Testicular torsion Tobacco use disorder Surgical History H/O shoulder surgery History of arthroscopic knee surgery Family History Father Myocardial infarction Denies family history of Ovarian cancer Prostate cancer Breast cancer Colorectal cancer Social History Smoking Status: Never smoker Tobacco Type: Smokeless Tobacco (Dip or Chew) Second Hand Exposure: No; Do You Dip or Chew Tobacco: Yes; Hx Alcohol Use: Yes Alcohol Intake Frequency: Monthly or Less Alcohol Intake Frequency Comment: maybe once a year Hx Substance Use: No Preferred Language: [place] Communication Ability: Effective Visual Impairment: No Limitations Hearing Ability: Normal Can Sorter Required: No Beliefs That Will Affect Care: None marital status: Single Current Living Situation: Significant Other current occupational status: employed How many Children do You have: 0 Other Information That Helps Us Care for You: No Feels Safe at Home: Yes Safety Concerns: Feels Safe At This Time Childhood Exposure to Second-Hand Smoke: Yes caffeine: Yes Physical Activity Frequency: Other Physical Activity Frequency Comment: pt lifts weights- depends how many times a day Seatbelt Use: never Sunscreen Use: No Assistive Devices: Oxygen - Continuous Allergies Allergies Allergy/AdvReac Type Severity Reaction Status Date / Time lisinopril AdvReac Severe swelling Verified 12/11/20 00:10 of face sulfamethoxazole AdvReac Severe swelling Verified 12/11/20 00:10 [From Bactrim] of face trimethoprim [From Bactrim] AdvReac Severe swelling Verified 12/11/20 00:10 of face Home Meds Home Medications Medication Instructions Recorded Confirmed albuterol sulfate 1 puff INHALATION QID PRN 04/19/20 12/11/20 hydrochlorothiazide 12.5 mg PO DAILY 04/19/20 12/11/20 diclofenac sodium [Voltaren] 2 g TOPICAL QID PRN 09/26/20 12/11/20 benzonatate [Tessalon Perles] 100 mg PO TID PRN 12/11/20 12/11/20 meloxicam 15 mg PO DAILY 12/11/20 12/11/20 Previous Rx's Medication Instructions Recorded ipratropium-albuterol 3 ml NEB Q4R PRN #1 box 09/30/20 ferrous sulfate 325 mg (65 mg 325 mg PO DAILY #90 tab 10/07/20 iron) tablet tadalafil 5 mg tablet 10 mg PO Q OTHER DAY #90 tab 10/07/20 valsartan 160 mg tablet 160 mg PO DAILY #90 tab 10/27/20 amlodipine 10 mg tablet 10 mg PO DAILY #30 tab 11/04/20 mupirocin 2 % topical ointment 1 applic TOPICAL TID PRN #22 g 11/04/20 Results & Data (ED) Vital Signs Vital Signs - 24 hr 12/10/20 22:39 12/10/20 23:39 12/10/20 23:45 Temperature 36.7 C Temperature Source Temporal Artery Scan Pulse Rate 104 H 103 H Pulse Rate [Right Radial] 103 H Pulse Rate from SpO2 Sensor Respiratory Rate 18 31 H 20 Respiratory Effort / Characteristics Short of Breath Non-Labored Spontaneous Respiratory Depth Normal Respiratory Pattern Regular Blood Pressure 108/46 L 119/64 Blood Pressure Mean 66 82 Blood Pressure Position Sitting Pulse Oximetry 82 L 93 Oxygen Delivery Method Room Air Nasal Cannula Oxygen Flow Rate 3 Sepsis Recent Fever Within 48 Hours No Sepsis New/Unexplained Change in Mental Status N/A Sepsis Action Taken by Nursing No Action Required 12/10/20 23:48 12/10/20 23:51 12/11/20 00:00 Temperature Temperature Source Pulse Rate 103 H 100 H Pulse Rate [Right Radial] Pulse Rate from SpO2 Sensor 101 H Respiratory Rate 22 27 H Respiratory Effort / Characteristics Respiratory Depth Respiratory Pattern Blood Pressure 123/62 Blood Pressure Mean 82 Blood Pressure Position Pulse Oximetry 99 Oxygen Delivery Method Nasal Cannula Oxygen Flow Rate 3 Sepsis Recent Fever Within 48 Hours Sepsis New/Unexplained Change in Mental Status Sepsis Action Taken by Nursing 12/11/20 00:01 12/11/20 00:30 12/11/20 00:31 Temperature Temperature Source Pulse Rate 101 H 109 H 107 H Pulse Rate [Right Radial] Pulse Rate from SpO2 Sensor 100 H 109 H 106 H Respiratory Rate 27 H 18 27 H Respiratory Effort / Characteristics Respiratory Depth Respiratory Pattern Blood Pressure 120/71 Blood Pressure Mean 87 Blood Pressure Position Pulse Oximetry 98 97 96 Oxygen Delivery Method Nasal Cannula Oxygen Flow Rate 3 Sepsis Recent Fever Within 48 Hours Sepsis New/Unexplained Change in Mental Status Sepsis Action Taken by Nursing 12/11/20 01:00 Temperature Temperature Source Pulse Rate 109 H Pulse Rate [Right Radial] Pulse Rate from SpO2 Sensor 110 H Respiratory Rate 27 H Respiratory Effort / Characteristics Respiratory Depth Respiratory Pattern Blood Pressure 161/90 H Blood Pressure Mean 113 Blood Pressure Position Pulse Oximetry 91 Oxygen Delivery Method Nasal Cannula Oxygen Flow Rate 3 Sepsis Recent Fever Within 48 Hours Sepsis New/Unexplained Change in Mental Status Sepsis Action Taken by Nursing Laboratory Data Result diagrams: 12/11/20 04:57 12/11/20 04:57 Lab Results 12/10/20 12/10/20 12/10/20 Range/Units 23:35 23:35 23:35 WBC 5.53 (4.8-10.8) K/uL RBC 7.22 H (4.7-6.1) M/uL Hgb 13.8 L (14.0-18.0) g/dL Hct 50.3 (42-52) % MCV 69.7 L (80-100) fL MCH 19.1 L (25-34) pg MCHC 27.4 L (32-36) g/dL RDW Std Deviation 57.0 H (36.4-46.3) fL RDW Coeff of Juan 22.6 H (11.5-14.5) % Plt Count 206 (130-400) K/uL Immature Gran % (Auto) 0.2 % Neut % (Auto) 60.9 % Lymph % (Auto) 23.5 % Wayne % (Auto) 13.9 % Eos % (Auto) 1.3 % Baso % (Auto) 0.2 % Neut # (Auto) 3.37 (1.4-6.5) K/uL Lymph # (Auto) 1.30 (1.2-3.4) K/uL Wayne # (Auto) 0.77 H (0.11-0.59) K/uL Eos # (Auto) 0.07 (0-0.5) K/uL Baso # (Auto) 0.01 (0-0.2) K/uL Immature Gran # (Auto) 0.01 (0.00-0.02) K/uL Giant Platelets 1+ Polychromasia 1+ Hypochromasia Present Poikilocytosis Present Anisocytosis Present Microcytosis Present PT 10.4 (9.0-12.0) Seconds INR 1.0 (0.9-1.1) APTT 26.2 (21.0-31.0) Seconds PTT Ratio 1.0 Sodium 136 (136-145) mmol/L Potassium 4.2 (3.5-5.1) mmol/L Chloride 97 L (98-107) mmol/L Carbon Dioxide 33 H (21-32) mmol/L Anion Gap 5.0 (3-11) BUN 29 H (7-18) mg/dl Creatinine 1.91 H (0.6-1.4) mg/dl Est Cr Clr Drug Dosing 78.5 ml/min Est GFR ( Amer) 48.3 Est GFR (Non-Af Amer) 41.7 BUN/Creatinine Ratio 15.3 (10-20) Glucose 122 H (70-99) mg/dl Calcium 8.5 (8.5-10.1) mg/dl Total Bilirubin 0.4 (0.2-1) mg/dl AST 48 H (15-37) U/L ALT 45 (12-78) U/L Alkaline Phosphatase 57 (45-117) U/L Total Creatine Kinase 701 H (39-308) U/L CK-MB (CK-2) 4.8 H (0.5-3.6) ng/ml CK/CKMB % Calc 0.7 (0-3.0) Troponin I 0.114 H* (0-0.045) ng/ml NT-Pro-B Natriuret Pep 282 (0-450) pg/ml Total Protein 7.5 (6.4-8.2) gm/dl Albumin 3.6 (3.4-5.0) gm/dl Globulin 3.9 (2.5-4.0) gm/dl Albumin/Globulin Ratio 0.9 (0.9-2) TSH 2.070 (0.300-4.500) uIu/ml Specimen Hemolysis COVID-19 Eval Order SARS-CoV-2 (PCR) (Negative) Influenza Type A (PCR) (Neg) Influenza Type B (PCR) (Neg) RSV (RT-PCR) (Neg) 12/10/20 12/10/20 Range/Units 23:45 23:45 WBC (4.8-10.8) K/uL RBC (4.7-6.1) M/uL Hgb (14.0-18.0) g/dL Hct (42-52) % MCV (80-100) fL MCH (25-34) pg MCHC (32-36) g/dL RDW Std Deviation (36.4-46.3) fL RDW Coeff of Juan (11.5-14.5) % Plt Count (130-400) K/uL Immature Gran % (Auto) % Neut % (Auto) % Lymph % (Auto) % Wayne % (Auto) % Eos % (Auto) % Baso % (Auto) % Neut # (Auto) (1.4-6.5) K/uL Lymph # (Auto) (1.2-3.4) K/uL Wayne # (Auto) (0.11-0.59) K/uL Eos # (Auto) (0-0.5) K/uL Baso # (Auto) (0-0.2) K/uL Immature Gran # (Auto) (0.00-0.02) K/uL Giant Platelets Polychromasia Hypochromasia Poikilocytosis Anisocytosis Microcytosis PT (9.0-12.0) Seconds INR (0.9-1.1) APTT (21.0-31.0) Seconds PTT Ratio Sodium (136-145) mmol/L Potassium (3.5-5.1) mmol/L Chloride (98-107) mmol/L Carbon Dioxide (21-32) mmol/L Anion Gap (3-11) BUN (7-18) mg/dl Creatinine (0.6-1.4) mg/dl Est Cr Clr Drug Dosing ml/min Est GFR ( Amer) Est GFR (Non-Af Amer) BUN/Creatinine Ratio (10-20) Glucose (70-99) mg/dl Calcium (8.5-10.1) mg/dl Total Bilirubin (0.2-1) mg/dl AST (15-37) U/L ALT (12-78) U/L Alkaline Phosphatase (45-117) U/L Total Creatine Kinase (39-308) U/L CK-MB (CK-2) (0.5-3.6) ng/ml CK/CKMB % Calc (0-3.0) Troponin I (0-0.045) ng/ml NT-Pro-B Natriuret Pep (0-450) pg/ml Total Protein (6.4-8.2) gm/dl Albumin (3.4-5.0) gm/dl Globulin (2.5-4.0) gm/dl Albumin/Globulin Ratio (0.9-2) TSH (0.300-4.500) uIu/ml Specimen Hemolysis COVID-19 Eval Order CovFluRsv at [facility] SARS-CoV-2 (PCR) NEGATIVE (Negative) Influenza Type A (PCR) Negative (Neg) Influenza Type B (PCR) Negative (Neg) RSV (RT-PCR) Negative (Neg) Administered Medications Sodium Chloride (Nss 1000ml) 1,000 mls @ 100 mls/hr IV .Q10H ALPHONSO Stop: 01/10/21 03:54 Last Admin: 12/11/20 04:25 Dose: 100 mls/hr Documented by: [id number] Discontinued Medications Albuterol (Albut/Ipratrop 3mg/0.5mg Neb 3 Ml Vial) 12 ml NEB ONE ONE Stop: 12/10/20 23:22 Last Admin: 12/10/20 23:45 Dose: 12 ml Documented by: [id number] Aspirin (Aspirin Chew 324 Mg) 324 mg PO NOW STA Stop: 12/11/20 01:07 Last Admin: 12/11/20 01:19 Dose: 324 mg Documented by: [id number] Magnesium Sulfate/Dextrose (Magnesium Sulfate / D5w) 1 gm in 100 mls @ 100 mls/hr IV NOW STA Stop: 12/11/20 00:21 Last Infusion: 12/11/20 01:18 Dose: 0 mls/hr Documented by: [id number] Admin: 12/10/20 23:42 Dose: 100 mls/hr Documented by: [id number] Acetaminophen (Ofirmev) 1,000 mg in 100 mls @ 400 mls/hr IV NOW STA Stop: 12/11/20 00:39 Last Infusion: 12/11/20 04:19 Dose: 0 mls/hr Documented by: [id number] Admin: 12/11/20 01:19 Dose: 400 mls/hr Documented by: [id number] Sodium Chloride (Nss 1000ml) 1,000 mls @ 999 mls/hr IV .Q1H1M ONE Stop: 12/11/20 02:04 Last Infusion: 12/11/20 04:18 Dose: 0 mls/hr Documented by: [id number] Admin: 12/11/20 01:20 Dose: 999 mls/hr Documented by: [id number] Ketorolac Tromethamine (Ketorolac 30 Mg/Ml Vial) 30 mg IV NOW ONE Stop: 12/10/20 23:22 Last Admin: 12/10/20 23:42 Dose: 30 mg Documented by: [id number] Methylprednisolone (Methylprednisolone 125 Mg/2 Ml Vial) 125 mg IV NOW STA Stop: 12/10/20 23:22 Last Admin: 12/10/20 23:42 Dose: 125 mg Documented by: [id number] Metoprolol Succinate (Metoprolol Succ 25mg Ext Rel Tab) 25 mg PO NOW STA Stop: 12/11/20 04:36 Last Admin: 12/11/20 05:04 Dose: 25 mg Documented by: [id number] Discharge Plan Visit Data Chief Complaint: Weakness Stated Complaint: WEAKNESS-OXYGEN TANK RAN OUT ED Provider: Toñito Pope Discharge Problem: Acute kidney injury superimposed on CKD, Elevated troponin I level, Rha bdomyolysis, Personal history of COVID-19 Patient Disposition: Admitted As Inpatient Discharge Instructions Interventions: ED Discharge Assessment Last Done: 12/11/20 03:40 Discharge Problem: Rhabdomyolysis Qualifiers: Rhabdomyolysis type: traumatic Encounter type: initial encounter Qualified Code(s): T79.6XXA - Traumatic ischemia of muscle, initial encounter
[2020-12-11 00:03] LABS: Potassium 4.2 mmol/L (3.5-5.1)
[2020-12-11 00:10] LABS: Hematocrit (blood only) 50.3 % (42-52); Hemoglobin 13.8 g/dL (14.0-18.0); Mean Corpuscular Hemoglobin 19.1 pg (25-34); Mean Corpuscular Hgb Conc 27.4 g/dL (32-36); Mean Corpuscular Volume 69.7 fL (80-100); Platelet Count 206 K/uL (130-400); RDW Coefficient of Variation 22.6 % (11.5-14.5); Red Blood Count 7.22 M/uL (4.7-6.1); White Blood Count 5.53 K/uL (4.8-10.8)
[2020-12-11 00:12] LABS: Anisocytosis Present; Basophils # (auto) 0.01 K/uL (0-0.2); Basophils % (auto) 0.2 %; Eosinophils # (auto) 0.07 K/uL (0-0.5); Eosinophils % (auto) 1.3 %; Giant Platelets 1+; Hypochromasia Present; Immature Granulocytes # (auto) 0.01 K/uL (0.00-0.02); Immature Granulocytes % (auto) 0.2 %; Lymphocytes % (auto) 23.5 %; Microcytosis Present; Monocytes # (auto) 0.77 K/uL (0.11-0.59); Monocytes % (auto) 13.9 %; Neutrophils # (auto) 3.37 K/uL (1.4-6.5); Neutrophils % (auto) 60.9 %; Poikilocytosis Present; Polychromasia 1+
[2020-12-11] MEDS ORDERED: ACETAMINOPHEN 1,000 MG/100 ML VIAL IV STA (00:25)
[2020-12-11 00:26] LABS: Albumin Globulin Ratio 0.9 (0.9-2); Albumin Level 3.6 gm/dl (3.4-5.0); BUN Creatinine Ratio 15.3 (10-20); Bilirubin,Total 0.4 mg/dl (0.2-1); Calcium 8.5 mg/dl (8.5-10.1); Creatine Kinase MB 4.8 ng/ml (0.5-3.6); Creatinine Clr Calc Pharmacy 78.5 ml/min; Est GFR (African American) 48.3; Est GFR (Non-African American) 41.7; Globulin 3.9 gm/dl (2.5-4.0); Thyroid Stimulating Hormone 2.07 uIu/ml (0.300-4.500); Total Protein 7.5 gm/dl (6.4-8.2); Troponin I 0.114 ng/ml (0-0.045)
[2020-12-11 00:42] LABS: Partial Thromboplastin Time 26.2 Seconds (21.0-31.0); Prothrombin Time 10.4 Seconds (9.0-12.0)
[2020-12-11 00:48] LABS: Influenza A virus by PCR Negative (Neg); Influenza B virus by PCR Negative (Neg); RSV by PCR Negative (Neg); SARS CoV2 RNA(COVID-19) InHosp NEGATIVE (Negative)
[2020-12-11] MEDS ORDERED: SODIUM CHLORIDE 0.9% 1000ML 1,000 ML IV ONE (01:04)
[2020-12-11] MEDS ORDERED: ASPIRIN CHEW 324 MG PO STA (01:06)
--- NOTE | 2020-12-11 02:23 | History & Physical Report ---
Date of Service December 11, 2020 Assessment & Plan (1) Elevated troponin I level: Elevated troponin I level/hypertension EKG without acute findings. Likely type II LA, supply demand mismatch The patient will be admitted to telemetry for serial cardiac enzymes, serial EKG's, cardiac rhythm monitoring. Recent outpatient echocardiogram on 11/17/2020, with ejection fraction 55-60% and negative treadmill Has upcoming outpatient appointment with Dr. Sadler, who will be consulted this admission Would hold amlodipine, HCTZ, and valsartan due to associated acute kidney injury and likely contributing to reflex tachycardia. His significant other reports heart rate has been in the low 100s for the last number of weeks. We will place him metoprolol succinate 25 mg now, and then 25 mg every morning. Of note, his father did recently of an LA, and had been on metoprolol. He did receive aspirin 324 mg in ED, and will continue 81 mg every morning. Present on Admission?: Yes (2) Hypoxia: Hypoxia likely multifactorial- Possibly related to: Tobacco use disorder, asthma exacerbation, TELMA, obesity hypoventilation syndrome, pulmonary emboli and persistent unresolved symptoms since initial COVID-19 infection 09/26/2020 Ordering lower extremity venous Dopplers. Will place on nasal cannula oxygen for now, will target pulse ox 92%. VQ scan will not be ordered for the a.m., as would not likely give good results with his body habitus. Unable to order CT angio PE protocol tonight due to creatinine 1.9, but hopefully will be reduced after IV fluid rehydration this evening, and if necessary will pursue in the a.m. Duonebs every 4 hours while awake and every 2 hours when necessary. Pulmicort Respules 0.5 mg inhaled twice daily Methylprednisolone 40 mg IV every 8 hours Present on Admission?: Yes (3) Personal history of COVID-19: Admission from 09/26-09/30/2020, with some persistent symptoms since that time. Present on Admission?: Yes (4) Acute kidney injury superimposed on CKD: FELIPA on CKD/rhabdomyolysis- Symptoms of myalgias and arthralgias have worsened considerably since he received the first 5 0 COVID-19 vaccine 3 days ago. He does take large doses of creatine and does do. Do heavy exercise. Creatinine 1.91 upon admission, with baseline 1.30 CK 701. Repeat all laboratories in the a.m. He did receive 2 L normal saline in the ED, and will continue fluid intake. We will be holding potential nephrotoxic agents: For losartan, meloxicam, HCTZ. Present on Admission?: Yes (5) Rhabdomyolysis: See above Present on Admission?: Yes (6) Tobacco use disorder: Cessation counseling. Likely also contributing to his polycythemia Present on Admission?: Yes (7) TELMA (obstructive sleep apnea): Has had difficulty tolerating a CPAP mask in the past. Reports that he has an outpatient appointment with Dr. Rosado in 5 days Present on Admission?: Yes (8) Polycythemia: Polycythemia of unclear etiology. With TELMA history, with make sense that is at least in part reactive. Unknown if he has had JAK2 mutation testing. Has an upcoming appointment with Dr. Licea, hematology/oncology. Hemoglobin today is 13.8, with no intervention needed. Present on Admission?: Yes (9) Hypertension: See above Present on Admission?: Yes (10) Testicular torsion: Has followed with urology [place], and will be establishing with urology here. Present on Admission?: Yes (11) Morbid obesity with BMI of 50.0-59.9, adult: Contribution to TELMA, hypoxia and cardiac issues noted Present on Admission?: Yes History of Present Illness Chief Complaint: The patient presents to the emergency department with complaint of generalized myalgias and arthralgias, that have appeared and worsened since he received the first Pfizer COVID-19 vaccine 3 days ago Primary Care Provider: Romy Wells DO The patient is a 45-year-old male with a past medical history including asthma, tobacco use disorder, TELMA, morbid obesity with BMI 50-59.9, testicular torsion, hypertension, polycythemia requiring periodic phlebotomy and intermittent cough and dyspnea on exertion since hospitalization for COVID-19 infection from 09/26- 09/30/20 at [facility]. In the emergency department tonight, he was COVID-19 negative. His troponin was increased to 0.114, CK 701, AST 48, creatinine 1.91 with baseline 1.30, and pulse ox 82% on room air which increased to 92% on 3 L nasal cannula oxygen. Allergies Allergy/AdvReac Type Severity Reaction Status Date / Time lisinopril AdvReac Severe swelling Verified 12/11/20 00:10 of face sulfamethoxazole AdvReac Severe swelling Verified 12/11/20 00:10 [From Bactrim] of face trimethoprim [From Bactrim] AdvReac Severe swelling Verified 12/11/20 00:10 of face Home Medications Medication Instructions Recorded Confirmed Type albuterol sulfate 1 puff INHALATION QID PRN 04/19/20 12/11/20 History hydrochlorothiazide 12.5 mg PO DAILY 04/19/20 12/11/20 History diclofenac sodium [Voltaren] 2 g TOPICAL QID PRN 09/26/20 12/11/20 History ipratropium-albuterol 3 ml NEB Q4R PRN #1 box 09/30/20 12/11/20 Rx ferrous sulfate 325 mg (65 mg 325 mg PO DAILY #90 tab 10/07/20 12/11/20 Rx iron) tablet tadalafil 5 mg tablet 10 mg PO Q OTHER DAY #90 tab 10/07/20 12/11/20 Rx valsartan 160 mg tablet 160 mg PO DAILY #90 tab 10/27/20 12/11/20 Rx amlodipine 10 mg tablet 10 mg PO DAILY #30 tab 11/04/20 12/11/20 Rx mupirocin 2 % topical ointment 1 applic TOPICAL TID PRN #22 g 11/04/20 12/11/20 Rx benzonatate [Tessalon Perles] 100 mg PO TID PRN 12/11/20 12/11/20 History meloxicam 15 mg PO DAILY 12/11/20 12/11/20 History Past Med/Surg History Medical History Hypertension Hypoxia Morbid obesity with BMI of 50.0-59.9, adult ETLMA (obstructive sleep apnea) Pneumonia due to 2019 novel coronavirus Polycythemia Tear of left biceps muscle Testicular torsion Tobacco use disorder Surgical History H/O shoulder surgery History of arthroscopic knee surgery Family History Father Myocardial infarction Denies family history of Ovarian cancer Prostate cancer Breast cancer Colorectal cancer Social History Smoking Status: Never smoker Tobacco Type: Smokeless Tobacco (Dip or Chew) Second Hand Exposure: No; Do You Dip or Chew Tobacco: Yes; Hx Alcohol Use: Yes Alcohol Intake Frequency: Monthly or Less Alcohol Intake Frequency Comment: maybe once a year Hx Substance Use: No Preferred Language: Kosovan Communication Ability: Effective Visual Impairment: No Limitations Hearing Ability: Normal Latex Caster Required: No Beliefs That Will Affect Care: None marital status: Single Current Living Situation: Significant Other current occupational status: employed How many Children do You have: 0 Other Information That Helps Us Care for You: No Feels Safe at Home: Yes Safety Concerns: Feels Safe At This Time Childhood Exposure to Second-Hand Smoke: Yes caffeine: Yes Physical Activity Frequency: Other Physical Activity Frequency Comment: pt lifts weights- depends how many times a day Seatbelt Use: never Sunscreen Use: No Assistive Devices: Oxygen - Continuous Review of Systems Review of Systems: The patient denies chest pain, palpitations, lower extremity swelling, sore throat, fevers, chills, sweats, nausea, vomiting, diarrhea , constipation, abdominal pain, pelvic pain, blood in urine or stool, dysuria, urinary frequency or urgency, lightheadedness, dizziness, headache, memory loss, loss of consciousness, rash, abnormal bruising or bleeding, imbalance, focal or generalized weakness, numbness or tingling in arms or legs, back or neck pain, or night sweats. The review of systems is otherwise negative other than for that already noted above, and at least 10 systems have been reviewed. Physical Exam Physical Exam: The patient is awake, alert and oriented 3, well developed and well nourished, normocephalic and atraumatic, lying in bed and in no acute distress. HEENT--PERRL, EOMI, mucous membranes and oropharynx dry. Neck--supple. No JVD. No bruits. Thyroid normal, trachea midline, no adenopathy. Heart--normal S1 and S2. No murmurs, rubs or gallops. Lungs--diminished breath sounds throughout. No respiratory distress, no accessory muscle use. Abdomen--normal bowel sounds and soft. Nontender. Nondistended. Morbidly obese Extremities--no cyanosis or clubbing. 1+ bilateral pretibial pitting edema. Dermatologic--normal skin turgor, normal color, no abnormal lymph nodes, no rash. Neurologic--cranial nerves II through XII grossly intact. Rheumatologic--normal range of motion. Psychiatric--normal affect. Results & Data Results & Data ([facility]) Vital Signs (Past 12 Hours) Vital Signs Temp Pulse Pulse Resp BP Pulse Ox 12/11/20 01:00 109 H 27 H 161/90 H 91 12/11/20 00:31 107 H 27 H 96 12/11/20 00:30 109 H 18 120/71 97 12/11/20 00:01 101 H 27 H 98 12/11/20 00:00 100 H 27 H 123/62 99 12/10/20 23:48 103 H 22 12/10/20 23:45 103 H 20 93 12/10/20 23:39 103 H 31 H 119/64 12/10/20 22:39 98.1 F 104 H 18 108/46 L 82 L Laboratory Results Laboratory Results WBC 5.53 K/uL (4.8-10.8) 12/10/20 23:35 RBC 7.22 M/uL (4.7-6.1) H 12/10/20 23:35 Hgb 13.8 g/dL (14.0-18.0) L 12/10/20 23:35 Hct 50.3 % (42-52) 12/10/20 23:35 MCV 69.7 fL (80-100) L 12/10/20 23:35 MCH 19.1 pg (25-34) L 12/10/20 23:35 MCHC 27.4 g/dL (32-36) L 12/10/20 23:35 RDW Std Deviation 57.0 fL (36.4-46.3) H 12/10/20 23:35 RDW Coeff of Juan 22.6 % (11.5-14.5) H 12/10/20 23:35 Plt Count 206 K/uL (130-400) 12/10/20 23:35 Immature Gran % (Auto) 0.2 % 12/10/20 23:35 Neut % (Auto) 60.9 % 12/10/20 23:35 Lymph % (Auto) 23.5 % 12/10/20 23:35 [place] % (Auto) 13.9 % 12/10/20 23:35 Eos % (Auto) 1.3 % 12/10/20 23:35 Baso % (Auto) 0.2 % 12/10/20 23:35 Neut # (Auto) 3.37 K/uL (1.4-6.5) 12/10/20 23:35 Lymph # (Auto) 1.30 K/uL (1.2-3.4) 12/10/20 23:35 [place] # (Auto) 0.77 K/uL (0.11-0.59) H 12/10/20 23:35 Eos # (Auto) 0.07 K/uL (0-0.5) 12/10/20 23:35 Baso # (Auto) 0.01 K/uL (0-0.2) 12/10/20 23:35 Immature Gran # (Auto) 0.01 K/uL (0.00-0.02) 12/10/20 23:35 Giant Platelets 1+ 12/10/20 23:35 Polychromasia 1+ 12/10/20 23:35 Hypochromasia Present 12/10/20 23:35 Poikilocytosis Present 12/10/20 23:35 Anisocytosis Present 12/10/20 23:35 Microcytosis Present 12/10/20 23:35 PT 10.4 Seconds (9.0-12.0) 12/10/20 23:35 INR 1.0 (0.9-1.1) 12/10/20 23:35 APTT 26.2 Seconds (21.0-31.0) 12/10/20 23:35 PTT Ratio 1.0 12/10/20 23:35 Sodium 136 mmol/L (136-145) 12/10/20 23:35 Potassium 4.2 mmol/L (3.5-5.1) 12/10/20 23:35 Chloride 97 mmol/L (98-107) L 12/10/20 23:35 Carbon Dioxide 33 mmol/L (21-32) H 12/10/20 23:35 Anion Gap 5.0 (3-11) 12/10/20 23:35 BUN 29 mg/dl (7-18) H 12/10/20 23:35 Creatinine 1.91 mg/dl (0.6-1.4) H 12/10/20 23:35 Est Cr Clr Drug Dosing 78.5 ml/min 12/10/20 23:35 Est GFR ( Amer) 48.3 12/10/20 23:35 Est GFR (Non-Af Amer) 41.7 12/10/20 23:35 BUN/Creatinine Ratio 15.3 (10-20) 12/10/20 23:35 Glucose 122 mg/dl (70-99) H 12/10/20 23:35 Calcium 8.5 mg/dl (8.5-10.1) 12/10/20 23:35 Total Bilirubin 0.4 mg/dl (0.2-1) 12/10/20 23:35 AST 48 U/L (15-37) H 12/10/20 23:35 ALT 45 U/L (12-78) 12/10/20 23:35 Alkaline Phosphatase 57 U/L (45-117) 12/10/20 23:35 Total Creatine Kinase 701 U/L (39-308) H 12/10/20 23:35 CK-MB (CK-2) 4.8 ng/ml (0.5-3.6) H 12/10/20 23:35 CK/CKMB % Calc 0.7 (0-3.0) 12/10/20 23:35 Troponin I 0.114 ng/ml (0-0.045) H* 12/10/20 23:35 NT-Pro-B Natriuret Pep 282 pg/ml (0-450) 12/10/20 23:35 Total Protein 7.5 gm/dl (6.4-8.2) 12/10/20 23:35 Albumin 3.6 gm/dl (3.4-5.0) 12/10/20 23:35 Globulin 3.9 gm/dl (2.5-4.0) 12/10/20 23:35 Albumin/Globulin Ratio 0.9 (0.9-2) 12/10/20 23:35 TSH 2.070 uIu/ml (0.300-4.500) 12/10/20 23:35 Specimen Hemolysis 12/10/20 23:35 COVID-19 Eval Order CovFluRsv at [facility] 12/10/20 23:45 SARS-CoV-2 (PCR) NEGATIVE (Negative) 12/10/20 23:45 Influenza Type A (PCR) Negative (Neg) 12/10/20 23:45 Influenza Type B (PCR) Negative (Neg) 12/10/20 23:45 RSV (RT-PCR) Negative (Neg) 12/10/20 23:45 Code Status & VTE Plan Code Status Full code VTE Prophylaxis Plan VTE Prophylaxis will be ordered: Yes PG Care Time/CCT Total # of Minutes Spent Total Time Spent with Patient: Total time spent is greater than 50% in coordination of care (as documented) at patient's floor/unit and/or counseling patient: Coding Level of Care Code 43801 Initial Inpt Care Lvl 3 Diagnoses Elevated troponin I level R77.8 Hypoxia R09.02 Personal history of COVID-19 Z86.16 Acute kidney injury superimposed on CKD N17.9; N18.9 Rhabdomyolysis M62.82 Tobacco use disorder F17.200 TELMA (obstructive sleep apnea) G47.33 Polycythemia D75.1 Hypertension I10 Testicular torsion N44.00 Morbid obesity with BMI of 50.0-59.9, adult E66.01; Z68.43
[2020-12-11] MEDS ORDERED: SODIUM CHLORIDE 0.9% 1000ML 1,000 ML IV SCH (03:55)
[2020-12-11] MEDS ORDERED: BENZONATATE 100 MG CAPSULE PO PRN (03:55)
[2020-12-11] MEDS ORDERED: ONDANSETRON INJ 2 MG/ML 2 ML VIAL IV PRN (03:55)
[2020-12-11] MEDS ORDERED: ACETAMINOPHEN 325 MG TAB PO PRN (03:55)
[2020-12-11] MEDS ORDERED: MUPIROCIN 2% OINT 22 GM TUBE EXT PRN (04:14)
[2020-12-11] MEDS ORDERED: METOPROLOL SUCC 25MG EXT REL TAB PO STA (04:35)
[2020-12-11 05:15] LABS: Hematocrit (blood only) 53.8 % (42-52); Hemoglobin 14.9 g/dL (14.0-18.0); Mean Corpuscular Hemoglobin 19.4 pg (25-34); Mean Corpuscular Hgb Conc 27.7 g/dL (32-36); Nucleated RBC # (auto) 0.04 K/uL (0-0); Nucleated RBC % (auto) 0.8 %; Platelet Count 194 K/uL (130-400); RDW Coefficient of Variation 23.1 % (11.5-14.5); RDW Standard Deviation 57.1 fL (36.4-46.3); Red Blood Count 7.69 M/uL (4.7-6.1); White Blood Count 4.94 K/uL (4.8-10.8)
[2020-12-11 05:38] LABS: Anisocytosis Present; Basophils # (auto) 0.01 K/uL (0-0.2); Basophils % (auto) 0.2 %; Eosinophils # (auto) 0.01 K/uL (0-0.5); Eosinophils % (auto) 0.2 %; Hypochromasia Present; Immature Granulocytes # (auto) 0.01 K/uL (0.00-0.02); Immature Granulocytes % (auto) 0.2 %; Lymphocytes % (auto) 10.1 %; Microcytosis Present; Monocytes # (auto) 0.11 K/uL (0.11-0.59); Monocytes % (auto) 2.2 %; Neutrophils % (auto) 87.1 %
[2020-12-11 05:53] LABS: Albumin Level 3.7 gm/dl (3.4-5.0); BUN Creatinine Ratio 15.7 (10-20); Calcium 8.6 mg/dl (8.5-10.1); Creatinine Clr Calc Pharmacy 87.8 ml/min; Est GFR (African American) 55.2; Est GFR (Non-African American) 47.6; Potassium 4.5 mmol/L (3.5-5.1)
[2020-12-11 06:09] LABS: Albumin Globulin Ratio 0.8 (0.9-2); Bilirubin,Total 0.4 mg/dl (0.2-1); Globulin 4.5 gm/dl (2.5-4.0); Total Protein 8.2 gm/dl (6.4-8.2); Troponin I 0.078 ng/ml (0-0.045)
[2020-12-11] MEDS ORDERED: ALBUT/IPRATROP 3MG/0.5MG NEB 3 ML VIAL NEB SCH (07:00)
[2020-12-11] MEDS ORDERED: BUDESONIDE 0.5 MG/2 ML VIAL (PULMICORT) NEB SCH (07:00)
[2020-12-11] MEDS: FERROUS SULFATE 325 MG TAB PO SCH (07:57)
[2020-12-11] MEDS: ASPIRIN 81 MG ECTAB PO SCH (07:57)
[2020-12-11] MEDS: methylPREDNISolone 40 MG in SYRINGE 0 ML IV SCH ×3 (07:57→23:20)
--- NOTE | 2020-12-11 07:58 | Ultrasound Report ---
BILATERAL LOWER EXTREMITY VENOUS DOPPLER HISTORY: Shortness of breath. Leg swelling. COMPARISON STUDY: None. FINDINGS: There is normal compressibility, flow, and augmentation within the bilateral lower extremit y deep venous systems. IMPRESSION: No DVT within the right or left lower extremity. ACT 112: Negative or not required by law. Electronically signed by: Broderick Bacon M.D. 12/11/2020 7:57 AM
--- NOTE | 2020-12-11 08:15 | Hospitalist Progress Note ---
Date of Service December 11, 2020 Assessment & Plan (1) Elevated troponin I level: Elevated troponin I level/hypertension EKG without acute findings, Likely type II OK, supply demand mismatch. His significant other reports heart rate has been in the low 100s for the last number of weeks Recent outpatient echocardiogram on 11/17/2020, with ejection fraction 55-60% and negative treadmill. Has upcoming outpatient appointment with Dr. Sadler, who will be consulted this admission. The patient will be admitted to telemetry for serial cardiac enzymes, serial EKG's, cardiac rhythm monitoring. Holding amlodipine, HCTZ, and valsartan due to associated acute kidney injury and likely contributing to reflex tachycardia. Started on metoprolol succinate 25 mg in the range of 25 mg of aspirin in the ed, and then 25 mg of metoprolol and 81 mg of aspirin every morning. Of note, his father did recently of an OK, and had been on metoprolol. -Trending troponins -0.114->0.078 -Consult cardiology appreciate recommendations -Baby aspirin daily -Metoprolol 25 mg every morning -Holding amlodipine, HCTZ, and valsartan secondary to FELIPA Hypoxia likely multifactorial Etiologies include tobacco use disorder, asthma exacerbation, TELMA, obesity hypoventilation syndrome, pulmonary emboli and persistent unresolved symptoms since initial COVID-19 infection 09/26/2020. Venous Doppler study was negative for lower extremity DVT. -As needed O2 goal greater than 92% -DuoNebs every 4 hours while awake and every 2 hours as needed -Pulmicort 0.5 mg twice daily -Methylprednisone 40 mg IV every 8 H -wells score 7.5 -> Initiate Heparin with bolus d/c pending results - needs CTA PE protocol, spoke with Radiology GFR of 55.2 is acceptable for dye administration - cta neg d/c heparin History of COVID-19 Admission from 09/26-09/30/2020, with some persistent symptoms since that time. FELIPA on CKD/rhabdomyolysis Symptoms of myalgias and arthralgias have worsened considerably since he received the first dose of the dreamsha.re COVID-19 vaccine 3 days ago. History of heavy weightlifting and taking large doses of creatine. Creatinine is 1.9 on admission, baseline is 1.3, CK 701. Given 2 L normal saline in ED, and continued on admission at 100 mils per hour. Holding nephrotoxic agents amlodipine, HCTZ, valsartan, meloxicam -Daily BMP -cr: 1.9->1.7 -Avoid nephrotoxic agents -LR @ 125 Rhabdomyolysis See above Polycythemia of unclear etiology. With TELMA history, could be reactive, unknown if he has had JAK2 mutation testing. Has an upcoming appointment with Dr. Licea, hematology/oncology. Hemoglobin on admission was 13.8, with no intervention needed. -Trend CBC Tobacco use disorder Cessation counseling TELMA Has had difficulty tolerating a CPAP mask in the past. Reports that he has an outpatient appointment with Dr. Rosado in 5 days History of testicular torsion Has followed with urology when [place], and will be establishing with urology here. Morbid Obesity Contribution to TELMA, hypoxia and cardiac issues noted FENa: Heart healthy Code Status: Full code DVT PPX: Lovenox 40 mg every 12 hours PT/OT: Not indicated Dispo: Telemetry Ronen Winkler MD PGY 2, FCM This chart was completed utilizing [employer] voice recognition software. Grammatical errors, random word insertions, pronoun errors, and in complete sentences are an occasional consequence of the system. Any questions or concerns about the content, text, or information contained within the body of this dictation should be addressed directly to the physician for clarification. (2) Hypoxia: (3) Personal history of COVID-19: (4) Acute kidney injury superimposed on CKD: (5) Rhabdomyolysis: (6) Tobacco use disorder: (7) TELMA (obstructive sleep apnea): (8) Polycythemia: (9) Hypertension: See above (10) Testicular torsion: (11) Morbid obesity with BMI of 50.0-59.9, adult: Admission and Anticipated Discharge Date Admission Date: December 11, 2020 Subjective Patient sitting up in bed this morning in no acute distress. Patient was very talkative this morning, explaining the likely history of events that led to his ultimate presentation the hospital. Patient reports his breathing is slightly better at present, and he denies any chest pain or chest pressure. Patient reports tolerating his diet, voiding, stooling, slept well overnight. All questions answered acute concerns related to discharge Physical Exam Physical Exam: General: Obese gentleman sitting upright in bed in no acute distress HEENT: Normocephalic atraumatic Neck: Short neck normal to visual inspection Cardiac: Regular rate and rhythm I did not appreciate significant murmurs rubs or gallops, normal S1, normal S2, negative pedal edema, negative calf tenderness Respiratory: Prolonged inspiratory and expiratory phase, otherwise to auscultation bilaterally with symmetrical chest expansion no increased work of breathing GI: Distended abdomen, nontender, bowel sounds present Neuro: Alert and oriented x3 Psych: Calm and cooperative with interview Results & Data Results & Data ([place]) Vital Signs (Past 12 Hours) Vital Signs Temp Pulse Pulse Resp BP BP Pulse Ox 12/11/20 08:03 36.7 C 94 H 22 136/79 89 L 12/11/20 07:15 20 91 12/11/20 04:25 36.8 C 97 H 22 142/87 H 92 12/11/20 03:20 85 22 166/100 H 92 12/11/20 01:00 109 H 27 H 161/90 H 91 12/11/20 00:31 107 H 27 H 96 12/11/20 00:30 109 H 18 120/71 97 12/11/20 00:01 101 H 27 H 98 12/11/20 00:00 100 H 27 H 123/62 99 12/10/20 23:48 103 H 22 12/10/20 23:45 103 H 20 93 12/10/20 23:39 103 H 31 H 119/64 12/10/20 22:39 36.7 C 104 H 18 108/46 L 82 L Laboratory Results 12/11/20 12/11/20 12/11/20 Range/Units 09:15 04:57 04:57 WBC 4.94 (4.8-10.8) K/uL RBC 7.69 H (4.7-6.1) M/uL Hgb 14.9 (14.0-18.0) g/dL Hct 53.8 H (42-52) % MCV 70.0 L (80-100) fL MCH 19.4 L (25-34) pg MCHC 27.7 L (32-36) g/dL RDW Std Deviation 57.1 H (36.4-46.3) fL RDW Coeff of Juan 23.1 H (11.5-14.5) % Plt Count 194 (130-400) K/uL Immature Gran % (Auto) 0.2 % Neut % (Auto) 87.1 % Lymph % (Auto) 10.1 % [place] % (Auto) 2.2 % Eos % (Auto) 0.2 % Baso % (Auto) 0.2 % Neut # (Auto) 4.30 (1.4-6.5) K/uL Lymph # (Auto) 0.50 L (1.2-3.4) K/uL [place] # (Auto) 0.11 (0.11-0.59) K/uL Eos # (Auto) 0.01 (0-0.5) K/uL Baso # (Auto) 0.01 (0-0.2) K/uL Immature Gran # (Auto) 0.01 (0.00-0.02) K/uL Absolute Nucleated RBC 0.04 H (0-0) K/uL Nucleated RBC % (auto) 0.8 % Giant Platelets Polychromasia Hypochromasia Present Poikilocytosis Anisocytosis Present Microcytosis Present PT (9.0-12.0) Seconds INR (0.9-1.1) APTT (21.0-31.0) Seconds PTT Ratio Sodium 135 L (136-145) mmol/L Potassium 4.5 (3.5-5.1) mmol/L Chloride 100 (98-107) mmol/L Carbon Dioxide 30 (21-32) mmol/L Anion Gap 5.0 (3-11) BUN 27 H (7-18) mg/dl Creatinine 1.71 H (0.6-1.4) mg/dl Est Cr Clr Drug Dosing 87.8 ml/min Est GFR ( Amer) 55.2 Est GFR (Non-Af Amer) 47.6 BUN/Creatinine Ratio 15.7 (10-20) Glucose 199 H (70-99) mg/dl Calcium 8.6 (8.5-10.1) mg/dl Total Bilirubin 0.4 (0.2-1) mg/dl AST 44 H (15-37) U/L ALT 50 (12-78) U/L Alkaline Phosphatase 68 (45-117) U/L Total Creatine Kinase 631 H (39-308) U/L CK-MB (CK-2) (0.5-3.6) ng/ml CK/CKMB % Calc (0-3.0) Troponin I 0.078 H* (0-0.045) ng/ml NT-Pro-B Natriuret Pep (0-450) pg/ml Total Protein 8.2 (6.4-8.2) gm/dl Albumin 3.7 (3.4-5.0) gm/dl Globulin 4.5 H (2.5-4.0) gm/dl Albumin/Globulin Ratio 0.8 L (0.9-2) Tryptase TSH (0.300-4.500) uIu/ml Specimen Hemolysis Urine Color Yellow Urine Appearance Clear (Clear) Urine pH 5.0 (4.5-7.5) Ur Specific [place] 1.028 (1.000-1.030) Urine Protein 2+ H (Negative) Urine Glucose (UA) Trace H (Negative) Urine Ketones Negative (Negative) Urine Blood Trace H (Negative) Urine Nitrite Negative (Negative) Urine Bilirubin Negative (Negative) Urine Urobilinogen Negative (Negative) Ur Leukocyte Esterase Negative (Negative) Urine WBC (Auto) 1-5 (0-5) /hpf Urine RBC (Auto) 0-4 (0-4) /hpf U Hyaline Cast (Auto) 1-5 (0-5) /lpf U Epithel Cells (Auto) 0-5 (0-5) /lpf Urine Bacteria (Auto) Negative (Negative) COVID-19 Eval Order SARS-CoV-2 (PCR) (Negative) Influenza Type A (PCR) (Neg) Influenza Type B (PCR) (Neg) RSV (RT-PCR) (Neg) 12/10/20 12/10/20 12/10/20 Range/Units 23:45 23:45 23:35 WBC (4.8-10.8) K/uL RBC (4.7-6.1) M/uL Hgb (14.0-18.0) g/dL Hct (42-52) % MCV (80-100) fL MCH (25-34) pg MCHC (32-36) g/dL RDW Std Deviation (36.4-46.3) fL RDW Coeff of Juan (11.5-14.5) % Plt Count (130-400) K/uL Immature Gran % (Auto) % Neut % (Auto) % Lymph % (Auto) % [place] % (Auto) % Eos % (Auto) % Baso % (Auto) % Neut # (Auto) (1.4-6.5) K/uL Lymph # (Auto) (1.2-3.4) K/uL [place] # (Auto) (0.11-0.59) K/uL Eos # (Auto) (0-0.5) K/uL Baso # (Auto) (0-0.2) K/uL Immature Gran # (Auto) (0.00-0.02) K/uL Absolute Nucleated RBC (0-0) K/uL Nucleated RBC % (auto) % Giant Platelets Polychromasia Hypochromasia Poikilocytosis Anisocytosis Microcytosis PT 10.4 (9.0-12.0) Seconds INR 1.0 (0.9-1.1) APTT 26.2 (21.0-31.0) Seconds PTT Ratio 1.0 Sodium (136-145) mmol/L Potassium (3.5-5.1) mmol/L Chloride (98-107) mmol/L Carbon Dioxide (21-32) mmol/L Anion Gap (3-11) BUN (7-18) mg/dl Creatinine (0.6-1.4) mg/dl Est Cr Clr Drug Dosing ml/min Est GFR ( Amer) Est GFR (Non-Af Amer) BUN/Creatinine Ratio (10-20) Glucose (70-99) mg/dl Calcium (8.5-10.1) mg/dl Total Bilirubin (0.2-1) mg/dl AST (15-37) U/L ALT (12-78) U/L Alkaline Phosphatase (45-117) U/L Total Creatine Kinase (39-308) U/L CK-MB (CK-2) (0.5-3.6) ng/ml CK/CKMB % Calc (0-3.0) Troponin I (0-0.045) ng/ml NT-Pro-B Natriuret Pep (0-450) pg/ml Total Protein (6.4-8.2) gm/dl Albumin (3.4-5.0) gm/dl Globulin (2.5-4.0) gm/dl Albumin/Globulin Ratio (0.9-2) Tryptase TSH (0.300-4.500) uIu/ml Specimen Hemolysis Urine Color Urine Appearance (Clear) Urine pH (4.5-7.5) Ur Specific [place] (1.000-1.030) Urine Protein (Negative) Urine Glucose (UA) (Negative) Urine Ketones (Negative) Urine Blood (Negative) Urine Nitrite (Negative) Urine Bilirubin (Negative) Urine Urobilinogen (Negative) Ur Leukocyte Esterase (Negative) Urine WBC (Auto) (0-5) /hpf Urine RBC (Auto) (0-4) /hpf U Hyaline Cast (Auto) (0-5) /lpf U Epithel Cells (Auto) (0-5) /lpf Urine Bacteria (Auto) (Negative) COVID-19 Eval Order [facility] at [facility] SARS-CoV-2 (PCR) NEGATIVE (Negative) Influenza Type A (PCR) Negative (Neg) Influenza Type B (PCR) Negative (Neg) RSV (RT-PCR) Negative (Neg) 12/10/20 12/10/20 12/10/20 Range/Units 23:35 23:35 23:35 WBC 5.53 (4.8-10.8) K/uL RBC 7.22 H (4.7-6.1) M/uL Hgb 13.8 L (14.0-18.0) g/dL Hct 50.3 (42-52) % MCV 69.7 L (80-100) fL MCH 19.1 L (25-34) pg MCHC 27.4 L (32-36) g/dL RDW Std Deviation 57.0 H (36.4-46.3) fL RDW Coeff of Juan 22.6 H (11.5-14.5) % Plt Count 206 (130-400) K/uL Immature Gran % (Auto) 0.2 % Neut % (Auto) 60.9 % Lymph % (Auto) 23.5 % [place] % (Auto) 13.9 % Eos % (Auto) 1.3 % Baso % (Auto) 0.2 % Neut # (Auto) 3.37 (1.4-6.5) K/uL Lymph # (Auto) 1.30 (1.2-3.4) K/uL [place] # (Auto) 0.77 H (0.11-0.59) K/uL Eos # (Auto) 0.07 (0-0.5) K/uL Baso # (Auto) 0.01 (0-0.2) K/uL Immature Gran # (Auto) 0.01 (0.00-0.02) K/uL Absolute Nucleated RBC (0-0) K/uL Nucleated RBC % (auto) % Giant Platelets 1+ Polychromasia 1+ Hypochromasia Present Poikilocytosis Present Anisocytosis Present Microcytosis Present PT (9.0-12.0) Seconds INR (0.9-1.1) APTT (21.0-31.0) Seconds PTT Ratio Sodium 136 (136-145) mmol/L Potassium 4.2 (3.5-5.1) mmol/L Chloride 97 L (98-107) mmol/L Carbon Dioxide 33 H (21-32) mmol/L Anion Gap 5.0 (3-11) BUN 29 H (7-18) mg/dl Creatinine 1.91 H (0.6-1.4) mg/dl Est Cr Clr Drug Dosing 78.5 ml/min Est GFR ( Amer) 48.3 Est GFR (Non-Af Amer) 41.7 BUN/Creatinine Ratio 15.3 (10-20) Glucose 122 H (70-99) mg/dl Calcium 8.5 (8.5-10.1) mg/dl Total Bilirubin 0.4 (0.2-1) mg/dl AST 48 H (15-37) U/L ALT 45 (12-78) U/L Alkaline Phosphatase 57 (45-117) U/L Total Creatine Kinase 701 H (39-308) U/L CK-MB (CK-2) 4.8 H (0.5-3.6) ng/ml CK/CKMB % Calc 0.7 (0-3.0) Troponin I 0.114 H* (0-0.045) ng/ml NT-Pro-B Natriuret Pep 282 (0-450) pg/ml Total Protein 7.5 (6.4-8.2) gm/dl Albumin 3.6 (3.4-5.0) gm/dl Globulin 3.9 (2.5-4.0) gm/dl Albumin/Globulin Ratio 0.9 (0.9-2) Tryptase Pending TSH 2.070 (0.300-4.500) uIu/ml Specimen Hemolysis Urine Color Urine Appearance (Clear) Urine pH (4.5-7.5) Ur Specific [place] (1.000-1.030) Urine Protein (Negative) Urine Glucose (UA) (Negative) Urine Ketones (Negative) Urine Blood (Negative) Urine Nitrite (Negative) Urine Bilirubin (Negative) Urine Urobilinogen (Negative) Ur Leukocyte Esterase (Negative) Urine WBC (Auto) (0-5) /hpf Urine RBC (Auto) (0-4) /hpf U Hyaline Cast (Auto) (0-5) /lpf U Epithel Cells (Auto) (0-5) /lpf Urine Bacteria (Auto) (Negative) COVID-19 Eval Order SARS-CoV-2 (PCR) (Negative) Influenza Type A (PCR) (Neg) Influenza Type B (PCR) (Neg) RSV (RT-PCR) (Neg) Medications Administered Current Inpatient Medications Acetaminophen (Acetaminophen 325 Mg Tab) 650 mg PO Q4H PRN PRN Reason: Pain or Fever Stop: 01/10/21 03:54 Albuterol (Albut/Ipratrop 3mg/0.5mg Neb 3 Ml Vial) 3 ml NEB QIDR PRN PRN Reason: Shortness Of Breath Or Wheezing Stop: 01/10/21 06:59 Aspirin (Aspirin 81 Mg Ectab) 81 mg PO QAM [facility] Stop: 01/10/21 08:59 Last Admin: 12/11/20 07:57 Dose: 81 mg Documented by: Benzonatate (Benzonatate 100 Mg Capsule) 100 mg PO TID PRN PRN Reason: Cough Stop: 01/10/21 03:54 Budesonide (Budesonide 0.5 Mg/2 Ml Vial (Pulmicort)) 0.5 mg NEB BIDR PRN PRN Reason: Shortness Of Breath Or Wheezing Stop: 01/10/21 06:59 Enoxaparin Sodium (Enoxaparin Inj 40 Mg/0.4 Ml Syr) 40 mg SQ Q12H [facility] Stop: 01/10/21 08:59 Last Admin: 12/11/20 09:08 Dose: 40 mg Documented by: Ferrous Sulfate (Ferrous Sulfate 325 Mg Tab) 325 mg PO DAILY [facility] Stop: 01/10/21 08:59 Last Admin: 12/11/20 07:57 Dose: 325 mg Documented by: Methylprednisolone 40 mg/ (Syringe) 0.64 mls @ 1.5 mls/min IV Q8H [facility] Stop: 01/10/21 07:59 Last Admin: 12/11/20 07:57 Dose: 1.5 mls/min Documented by: Lactated Ringer's (Lr) 1,000 mls @ 125 mls/hr IV .Q8H [facility] Stop: 01/10/21 08:59 Last Admin: 12/11/20 09:08 Dose: 125 mls/hr Documented by: Metoprolol Succinate (Metoprolol Succ 25mg Ext Rel Tab) 25 mg PO QAM [facility] Stop: 01/10/21 08:59 Last Admin: 12/11/20 07:57 Dose: 25 mg Documented by: Mupirocin (Mupirocin 2% Oint 22 Gm Tube) 1 appln EXT TID PRN PRN Reason: nasal dryness Stop: 01/10/21 04:13 Ondansetron HCl (Ondansetron Inj 2 Mg/Ml 2 Ml Vial) 4 mg IV Q6H PRN PRN Reason: Nausea Stop: 01/10/21 03:54 Resident Activity Tracking Resident Involvement: Resident Care Provided Care Provided: Adult Hospital Medicine (1) Rhabdomyolysis Encounter type: initial encounter Rhabdomyolysis type: traumatic Qualified Code(s): T79.6XXA - Traumatic ischemia of muscle, initial encounter
[2020-12-11] MEDS ORDERED: ENOXAPARIN INJ 40 MG/0.4 ML SYR SQ SCH (09:00)
[2020-12-11] MEDS ORDERED: METOPROLOL SUCC 25MG EXT REL TAB PO SCH (09:00)
[2020-12-11] MEDS: LACTATED RINGER'S 1,000 ML IV SCH ×3 (09:08→23:19)
[2020-12-11 09:31] LABS: Appearance Urine Clear (Clear); Bacteria Urine Automated Negative (Negative); Bilirubin Urine Negative (Negative); Blood Urine Trace (Negative); Color Urine Yellow; Epithelial Cell Urine Auto 0-5 /lpf (0-5); Glucose Urine UA Trace (Negative); Ketones Urine Negative (Negative); Leukocyte Esterase Urine Negative (Negative); Nitrite Urine Negative (Negative); Protein Urine 2+ (Negative); RBC Urine Automated 0-4 /hpf (0-4); Specific Gravity Urine 1.028 (1.000-1.030); Urobilinogen Urine Negative (Negative)
[2020-12-11] MEDS ORDERED: ALBUT/IPRATROP 3MG/0.5MG NEB 3 ML VIAL NEB PRN (09:44)
[2020-12-11] MEDS ORDERED: BUDESONIDE 0.5 MG/2 ML VIAL (PULMICORT) NEB PRN (09:45)
--- NOTE | 2020-12-11 09:53 | XRay Report ---
XR chest 1V portable CLINICAL HISTORY: weakness COMPARISON STUDY: Chest radiograph September 26, 2020. FINDINGS: Lung volumes are normal. Note is made of mild cardiomegaly without evidence for pulmonary e axel. Bilateral airspace opacity shown on prior exam of September 26, 2020 has resolved. IMPRESSION: No acute cardiopulmonary findings. Resolution of bilateral airspace opacities. ACT 112: Negative or not required by law. Electronically signed by: Kyle Green M.D. 12/11/2020 9:52 AM
--- NOTE | 2020-12-11 15:05 | Cardiology Consultation ---
Date of Consultation December 11, 2020 Assessment & Plan (1) Elevated troponin I level: (2) Hypoxia: (3) Hypertension: (4) Asthma: (5) Rhabdomyolysis: (6) Acute renal insufficiency: ASSESSMENT/PLAN: 1. Elevated troponin: He did not present with acute coronary syndrome. He has not had any chest discomfort. His shortness of breath has been ongoing for months, since COVID-19 infection, with recent worsening. His slight troponin elevation is not diagnostic of AL. he states that he has an outpatient stress test pending with his primary cardiology provider. The timing of this can be adjusted as necessary for when he recovers from his current illness. No further inpatient cardiology evaluation necessary at this time. 2. Hypoxia/asthma: His hypoxia is not likely cardiac in nature. He has a difficult exam but he does not appear to be significantly hypervolemic and states that he typically does have lower extremity edema. He has very little air movement on auscultation of his lungs. Treatment of his underlying pulmonary process as per primary service. He is on methylprednisolone. 3. Hypertension: Blood pressure has been normotensive to mildly hypertensive. Some of his outpatient medications are currently held due to renal insufficiency such as his ARB and HCTZ. He has been placed on metoprolol by primary service. Caution with metoprolol in the setting of asthma. Consider use of other agent if he truly has asthma. 4. Rhabdomyolysis: As per primary service. 5. Acute renal insufficiency: Creatinine has improved with hydration. As per primary service. 6. Disposition: Cardiology will sign off at this time. Please call with any other questions or concerns. Follow-up with Mr. Fierro, his primary cardiology provider. He follows up in the [place] out reach office. Patient care communicated with Dr. Doss of the primary hospitalist service. Thank you for allowing me to participate in the care of your patient. Please call for any other questions or concerns. Sincerely, Sukumar Sadler M.D. History of Present Illness Reason for Consultation: Elevated troponin Requesting Physician: Dr. Plummer Attending Physician: Kassandra Doss MD History of Present Illness Mr. Ballesteros is a very pleasant 45-year-old gentleman with history significant for asthma, sleep apnea, obesity, hypertension, and prior COVID-19 infection in September of 2020. His primary emergency worker is Rupesh Fierro. He states that he was seen regularly by Cardiology the [facility], where he is originally from. He likes to follow with cardiology on a regular basis given his heavy lifting. He participates in weightlifting competitions and can bench press just over 1200 lb. He is hoping to break the world record at an upcoming competition. Ever since his COVID-19 infection in September, he has had shortness of breath. He was hospitalized in September briefly. He uses a pulse oximeter at home and notices that he becomes hypoxic with exertion on inclines, with O2 saturations less than 90%. For this, he has oxygen that he can use as needed. While walking around his home, he uses 1 L, at night he uses 3 L. he then received his COVID vaccine, first dose, 3 days ago. All of his symptoms worsened shortly thereafter. He developed worsening shortness of breath, arthralgias, and pain at any prior surgical site. He presented to the emergency department was found to be hypoxic with an oxygen saturation of 82%. He was placed on oxygen. He is receiving steroids in the form of methylprednisolone. Overall, he feels improved. He denies any chest discomfort. He denies the use of anabolic steroids any time recently. He does use protein formulations, more recently create 18 called Bulk. He exercises 3 days per week by lifting weights. He states that he has an outpatient stress test pending with [facility] cardiology. They are waiting for his breathing status to improve. On presentation he was noted to have an unremarkable proBNP, less than 300. His initial troponin level was 0.114 and has since trended downward. He had acute renal insufficiency with a creatinine of 1.91 although his baseline is near 1.3. His creatinine has improved with hydration. His CK level on presentation was 701 and has since trended downward. He denies syncope, near-syncope, palpitations, or bleeding such as melena, hematochezia, or hematuria. He has chronic lower extremity swelling, specifically in the left leg, citing previous knee surgery/injury. Review of systems: As above. Review of systems otherwise negative/unremarkable. Family history: Father had CAD and PCI. His first AL was at age 44. He in his 60s. Social history: Denies smoking. Chew snuff and had used several cans per day but now 1 can last several days. No alcohol or drugs. Lives at home with his girlfriend. No children. 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 He is originally from the [place] area. He is unaccompanied today. Allergies Allergy/AdvReac Type Severity Reaction Status Date / Time lisinopril AdvReac Severe swelling Verified 12/11/20 00:10 of face sulfamethoxazole AdvReac Severe swelling Verified 12/11/20 00:10 [From Bactrim] of face trimethoprim [From Bactrim] AdvReac Severe swelling Verified 12/11/20 00:10 of face Home Medications Medication Instructions Recorded Confirmed Type albuterol sulfate 1 puff INHALATION QID PRN 04/19/20 12/11/20 History hydrochlorothiazide 12.5 mg PO DAILY 04/19/20 12/11/20 History diclofenac sodium [Voltaren] 2 g TOPICAL QID PRN 09/26/20 12/11/20 History ipratropium-albuterol 3 ml NEB Q4R PRN #1 box 09/30/20 12/11/20 Rx ferrous sulfate 325 mg (65 mg 325 mg PO DAILY #90 tab 10/07/20 12/11/20 Rx iron) tablet tadalafil 5 mg tablet 10 mg PO Q OTHER DAY #90 tab 10/07/20 12/11/20 Rx valsartan 160 mg tablet 160 mg PO DAILY #90 tab 10/27/20 12/11/20 Rx amlodipine 10 mg tablet 10 mg PO DAILY #30 tab 11/04/20 12/11/20 Rx mupirocin 2 % topical ointment 1 applic TOPICAL TID PRN #22 g 11/04/20 12/11/20 Rx benzonatate [Tessalon Perles] 100 mg PO TID PRN 12/11/20 12/11/20 History meloxicam 15 mg PO DAILY 12/11/20 12/11/20 History Patient History Medical History Hypertension Hypoxia Morbid obesity with BMI of 50.0-59.9, adult TELMA (obstructive sleep apnea) Pneumonia due to 2019 novel coronavirus Polycythemia Tear of left biceps muscle Testicular torsion Tobacco use disorder Surgical History H/O shoulder surgery History of arthroscopic knee surgery Family History Father Myocardial infarction Denies family history of Ovarian cancer Prostate cancer Breast cancer Colorectal cancer Social History Smoking Status: Never smoker Tobacco Type: Smokeless Tobacco (Dip or Chew) Second Hand Exposure: No; Do You Dip or Chew Tobacco: Yes; Hx Alcohol Use: Yes Alcohol Intake Frequency: Monthly or Less Alcohol Intake Frequency Comment: maybe once a year Hx Substance Use: No Preferred Language: Citizen Of [place] Communication Ability: Effective Visual Impairment: No Limitations Hearing Ability: Normal Kerrick Kleaner Operator Required: No Beliefs That Will Affect Care: None marital status: Single Current Living Situation: Significant Other current occupational status: employed How many Children do You have: 0 Other Information That Helps Us Care for You: No Feels Safe at Home: Yes Safety Concerns: Feels Safe At This Time Childhood Exposure to Second-Hand Smoke: Yes caffeine: Yes Physical Activity Frequency: Other Physical Activity Frequency Comment: pt lifts weights- depends how many times a day Seatbelt Use: never Sunscreen Use: No Assistive Devices: Oxygen - Continuous Physical Exam Physical Exam: Gen.: No acute distress. Alert and oriented. HEENT: Anicteric sclera. Neck: Thick neck. No bruits. Normal carotid upstrokes bilaterally. Cardiac: PMI was nonpalpable. No ventricular heave. Regular. Normal S1-S2. No murmurs, rubs, or gallops. Pulmonary: Decreased breath sounds bilateral lung chand. Otherwise, clear to auscultation. Abdomen: Obese. Soft, nontender, nondistended, with normoactive bowel sounds. No bruits noted. Extremities: 2+ radial pulses bilaterally. 2+ posterior tibialis pulses bilaterally. Trace to 1+ left lower extremity edema. Trace right lower extremity edema. No cyanosis. Psychiatric: Affect appears appropriate. Results & Data ([facility]) Vital Signs (Past 12 Hours) Vital Signs Temp Pulse Pulse Resp BP Pulse Ox 12/11/20 12:00 36.7 C 97 H 18 141/87 H 92 12/11/20 08:03 36.7 C 94 H 22 136/79 89 L 12/11/20 08:00 83 12/11/20 07:15 20 91 12/11/20 04:25 36.8 C 97 H 22 142/87 H 92 12/11/20 03:20 85 22 166/100 H 92 Laboratory Results Laboratory Results - last 24 hr 12/10/20 12/10/20 12/10/20 23:35 23:35 23:35 WBC 5.53 RBC 7.22 H Hgb 13.8 L Hct 50.3 MCV 69.7 L MCH 19.1 L MCHC 27.4 L RDW Std Deviation 57.0 H RDW Coeff of Juan 22.6 H Plt Count 206 Immature Gran % (Auto) 0.2 Neut % (Auto) 60.9 Lymph % (Auto) 23.5 Otero % (Auto) 13.9 Eos % (Auto) 1.3 Baso % (Auto) 0.2 Neut # (Auto) 3.37 Lymph # (Auto) 1.30 Otero # (Auto) 0.77 H Eos # (Auto) 0.07 Baso # (Auto) 0.01 Immature Gran # (Auto) 0.01 Absolute Nucleated RBC Nucleated RBC % (auto) Giant Platelets 1+ Polychromasia 1+ Hypochromasia Present Poikilocytosis Present Anisocytosis Present Microcytosis Present PT INR APTT PTT Ratio Sodium 136 Potassium 4.2 Chloride 97 L Carbon Dioxide 33 H Anion Gap 5.0 BUN 29 H Creatinine 1.91 H Est Cr Clr Drug Dosing 78.5 Est GFR ( Amer) 48.3 Est GFR (Non-Af Amer) 41.7 BUN/Creatinine Ratio 15.3 Glucose 122 H Calcium 8.5 Total Bilirubin 0.4 AST 48 H ALT 45 Alkaline Phosphatase 57 Total Creatine Kinase 701 H CK-MB (CK-2) 4.8 H CK/CKMB % Calc 0.7 Troponin I 0.114 H* NT-Pro-B Natriuret Pep 282 Total Protein 7.5 Albumin 3.6 Globulin 3.9 Albumin/Globulin Ratio 0.9 Tryptase Pending TSH 2.070 Specimen Hemolysis Urine Color Urine Appearance Urine pH Ur Specific Hubbell Urine Protein Urine Glucose (UA) Urine Ketones Urine Blood Urine Nitrite Urine Bilirubin Urine Urobilinogen Ur Leukocyte Esterase Urine WBC (Auto) Urine RBC (Auto) U Hyaline Cast (Auto) U Epithel Cells (Auto) Urine Bacteria (Auto) COVID-19 Eval Order SARS-CoV-2 (PCR) Influenza Type A (PCR) Influenza Type B (PCR) RSV (RT-PCR) 12/10/20 12/10/20 12/10/20 23:35 23:45 23:45 WBC RBC Hgb Hct MCV MCH MCHC RDW Std Deviation RDW Coeff of Juan Plt Count Immature Gran % (Auto) Neut % (Auto) Lymph % (Auto) Otero % (Auto) Eos % (Auto) Baso % (Auto) Neut # (Auto) Lymph # (Auto) Otero # (Auto) Eos # (Auto) Baso # (Auto) Immature Gran # (Auto) Absolute Nucleated RBC Nucleated RBC % (auto) Giant Platelets Polychromasia Hypochromasia Poikilocytosis Anisocytosis Microcytosis PT 10.4 INR 1.0 APTT 26.2 PTT Ratio 1.0 Sodium Potassium Chloride Carbon Dioxide Anion Gap BUN Creatinine Est Cr Clr Drug Dosing Est GFR ( Amer) Est GFR (Non-Af Amer) BUN/Creatinine Ratio Glucose Calcium Total Bilirubin AST ALT Alkaline Phosphatase Total Creatine Kinase CK-MB (CK-2) CK/CKMB % Calc Troponin I NT-Pro-B Natriuret Pep Total Protein Albumin Globulin Albumin/Globulin Ratio Tryptase TSH Specimen Hemolysis Urine Color Urine Appearance Urine pH Ur Specific Hubbell Urine Protein Urine Glucose (UA) Urine Ketones Urine Blood Urine Nitrite Urine Bilirubin Urine Urobilinogen Ur Leukocyte Esterase Urine WBC (Auto) Urine RBC (Auto) U Hyaline Cast (Auto) U Epithel Cells (Auto) Urine Bacteria (Auto) COVID-19 Eval Order [facility]Rsv at [facility] SARS-CoV-2 (PCR) NEGATIVE Influenza Type A (PCR) Negative Influenza Type B (PCR) Negative RSV (RT-PCR) Negative 12/11/20 12/11/20 12/11/20 04:57 04:57 09:15 WBC 4.94 RBC 7.69 H Hgb 14.9 Hct 53.8 H MCV 70.0 L MCH 19.4 L MCHC 27.7 L RDW Std Deviation 57.1 H RDW Coeff of Juan 23.1 H Plt Count 194 Immature Gran % (Auto) 0.2 Neut % (Auto) 87.1 Lymph % (Auto) 10.1 Otero % (Auto) 2.2 Eos % (Auto) 0.2 Baso % (Auto) 0.2 Neut # (Auto) 4.30 Lymph # (Auto) 0.50 L Otero # (Auto) 0.11 Eos # (Auto) 0.01 Baso # (Auto) 0.01 Immature Gran # (Auto) 0.01 Absolute Nucleated RBC 0.04 H Nucleated RBC % (auto) 0.8 Giant Platelets Polychromasia Hypochromasia Present Poikilocytosis Anisocytosis Present Microcytosis Present PT INR APTT PTT Ratio Sodium 135 L Potassium 4.5 Chloride 100 Carbon Dioxide 30 Anion Gap 5.0 BUN 27 H Creatinine 1.71 H Est Cr Clr Drug Dosing 87.8 Est GFR ( Amer) 55.2 Est GFR (Non-Af Amer) 47.6 BUN/Creatinine Ratio 15.7 Glucose 199 H Calcium 8.6 Total Bilirubin 0.4 AST 44 H ALT 50 Alkaline Phosphatase 68 Total Creatine Kinase 631 H CK-MB (CK-2) CK/CKMB % Calc Troponin I 0.078 H* NT-Pro-B Natriuret Pep Total Protein 8.2 Albumin 3.7 Globulin 4.5 H Albumin/Globulin Ratio 0.8 L Tryptase TSH Specimen Hemolysis Urine Color Yellow Urine Appearance Clear Urine pH 5.0 Ur Specific Hubbell 1.028 Urine Protein 2+ H Urine Glucose (UA) Trace H Urine Ketones Negative Urine Blood Trace H Urine Nitrite Negative Urine Bilirubin Negative Urine Urobilinogen Negative Ur Leukocyte Esterase Negative Urine WBC (Auto) 1-5 Urine RBC (Auto) 0-4 U Hyaline Cast (Auto) 1-5 U Epithel Cells (Auto) 0-5 Urine Bacteria (Auto) Negative COVID-19 Eval Order SARS-CoV-2 (PCR) Influenza Type A (PCR) Influenza Type B (PCR) RSV (RT-PCR) 12/11/20 12:46 WBC RBC Hgb Hct MCV MCH MCHC RDW Std Deviation RDW Coeff of Juan Plt Count Immature Gran % (Auto) Neut % (Auto) Lymph % (Auto) Otero % (Auto) Eos % (Auto) Baso % (Auto) Neut # (Auto) Lymph # (Auto) Otero # (Auto) Eos # (Auto) Baso # (Auto) Immature Gran # (Auto) Absolute Nucleated RBC Nucleated RBC % (auto) Giant Platelets Polychromasia Hypochromasia Poikilocytosis Anisocytosis Microcytosis PT INR APTT PTT Ratio Sodium Potassium Chloride Carbon Dioxide Anion Gap BUN Creatinine Est Cr Clr Drug Dosing Est GFR ( Amer) Est GFR (Non-Af Amer) BUN/Creatinine Ratio Glucose Calcium Total Bilirubin AST ALT Alkaline Phosphatase Total Creatine Kinase CK-MB (CK-2) CK/CKMB % Calc Troponin I 0.031 NT-Pro-B Natriuret Pep Total Protein Albumin Globulin Albumin/Globulin Ratio Tryptase TSH Specimen Hemolysis Urine Color Urine Appearance Urine pH Ur Specific Hubbell Urine Protein Urine Glucose (UA) Urine Ketones Urine Blood Urine Nitrite Urine Bilirubin Urine Urobilinogen Ur Leukocyte Esterase Urine WBC (Auto) Urine RBC (Auto) U Hyaline Cast (Auto) U Epithel Cells (Auto) Urine Bacteria (Auto) COVID-19 Eval Order SARS-CoV-2 (PCR) Influenza Type A (PCR) Influenza Type B (PCR) RSV (RT-PCR) Diagnostic Findings ECGs personally reviewed: ECG 12/10/2020: Sinus tachycardia 103 beats per minute. Poor R-wave progre ssion. ECG 12/11/2020: Sinus rhythm 97 beats per minute. Poor R-wave progression. Echo 11/17/2020: Normal LV size, wall motion, systolic function. EF 55-60%. Mild LVH. No significant valvular abnormalities. Chest x-ray 12/10/2020: Resolved airspace opacities from 09/26/2020. Lower extremity Doppler 12/11/2020: No DVT bilateral lower extremities. Medications Administered Current Inpatient Medications Acetaminophen (Acetaminophen 325 Mg Tab) 650 mg PO Q4H PRN PRN Reason: Pain or Fever Stop: 01/10/21 03:54 Albuterol (Albut/Ipratrop 3mg/0.5mg Neb 3 Ml Vial) 3 ml NEB QIDR PRN PRN Reason: Shortness Of Breath Or Wheezing Stop: 01/10/21 06:59 Aspirin (Aspirin 81 Mg Ectab) 81 mg PO QAM [facility] Stop: 01/10/21 08:59 Last Admin: 12/11/20 07:57 Dose: 81 mg Documented by: Benzonatate (Benzonatate 100 Mg Capsule) 100 mg PO TID PRN PRN Reason: Cough Stop: 01/10/21 03:54 Budesonide (Budesonide 0.5 Mg/2 Ml Vial (Pulmicort)) 0.5 mg NEB BIDR PRN PRN Reason: Shortness Of Breath Or Wheezing Stop: 01/10/21 06:59 Enoxaparin Sodium (Enoxaparin Inj 40 Mg/0.4 Ml Syr) 40 mg SQ Q12H [facility] Stop: 01/10/21 08:59 Last Admin: 12/11/20 09:08 Dose: 40 mg Documented by: Ferrous Sulfate (Ferrous Sulfate 325 Mg Tab) 325 mg PO DAILY [facility] Stop: 01/10/21 08:59 Last Admin: 12/11/20 07:57 Dose: 325 mg Documented by: Methylprednisolone 40 mg/ (Syringe) 0.64 mls @ 1.5 mls/min IV Q8H [facility] Stop: 01/10/21 07:59 Last Admin: 12/11/20 07:57 Dose: 1.5 mls/min Documented by: Lactated Ringer's (Lr) 1,000 mls @ 125 mls/hr IV .Q8H [facility] Stop: 01/10/21 08:59 Last Admin: 12/11/20 09:08 Dose: 125 mls/hr Documented by: Metoprolol Succinate (Metoprolol Succ 25mg Ext Rel Tab) 25 mg PO QAM [facility] Stop: 01/10/21 08:59 Last Admin: 12/11/20 07:57 Dose: 25 mg Documented by: Mupirocin (Mupirocin 2% Oint 22 Gm Tube) 1 appln EXT TID PRN PRN Reason: nasal dryness Stop: 01/10/21 04:13 Ondansetron HCl (Ondansetron Inj 2 Mg/Ml 2 Ml Vial) 4 mg IV Q6H PRN PRN Reason: Nausea Stop: 01/10/21 03:54 PG Care Time/CCT Total # of Minutes Spent Total Time Spent with Patient: Total time spent is greater than 50% in coordination of care (as documented) at patient's floor/unit and/or counseling patient: Coding Level of Care Code 40065 Initial Inpt Care Lvl 3 Diagnoses Elevated troponin I level R77.8 Hypoxia R09.02 Hypertension I10 Asthma J45.909 Rhabdomyolysis T79.6XXA Encounter type: initial encounter Rhabdomyolysis type: traumatic Acute renal insufficiency N28.9 (1) Rhabdomyolysis Encounter type: initial encounter Rhabdomyolysis type: traumatic Qualified Code(s): T79.6XXA - Traumatic ischemia of muscle, initial encounter
[2020-12-11] MEDS ORDERED: Heparin IV Adult Wt-Based Standard WITH Bolus Protocol IV SCH (16:08)
[2020-12-11] MEDS ORDERED: HEPARIN IV BOLUS 9,000 UNITS in SYRINGE 0 ML IV ONE (16:30)
[2020-12-11] MEDS ORDERED: HEPARIN SODIUM/DEXTROSE 25,000 UNITS/500 ML BAG IV SCH (16:30)
[2020-12-11] MEDS ORDERED: OPTIRAY 320 125ml IV ONE (17:02)
--- NOTE | 2020-12-11 17:27 | CT Scan Report ---
CT ANGIOGRAPHY OF THE CHEST, PULMONARY EMBOLUS PROTOCOL CLINICAL HISTORY: Chest pain. Weakness. Evaluate for pulmonary embolus. COMPARISON STUDY: Chest radiograph September 26, 2020 and December 10, 2020. TECHNIQUE: Following IV administration of 118 mL of Optiray-320, helical axial images of the chest we re obtained utilizing the pulmonary embolus protocol. Maximal intensity projections and sagittal and coronal reformats were viewed on an independent 3D workstation. IV contrast was administered withou t complication. Automated exposure control was utilized for the study. A dose lowering technique wa s utilized adhering to the principles of ALARA. CT DOSE: 919.94 mGy.cm FINDINGS: This exam is significantly compromised by respiratory motion artifact. There is no central pulmonary embolus. Remainder of the pulmonary arteries are suboptimally assessed. Central pulmonary a rteries are dilated. Note is made of cardiomegaly. There is no pericardial effusion. No enlarged thor acic lymph node are present. Lungs are suboptimally assessed due to respiratory motion. Linear and gr oundglass opacities favor atelectasis. There is no consolidation to suggest pneumonia. No pneumothora x or pleural effusion is noted. There is probable hepatic steatosis. The liver is likely enlarged. Th e liver is partially imaged on this exam. IMPRESSION: 1. Exam significantly compromised by artifact. No central pulmonary embolus. Remainder of pulmonary a rteries suboptimally assessed on this exam. 2. Cardiomegaly. 3. Linear and groundglass opacities within the lungs suggestive of atelectasis. 4. Dilatation of the central pulmonary arteries which raises the possibility of pulmonary arterial hy pertension. ACT 112: Negative or not required by law. Electronically signed by: Kyle Green M.D. 12/11/2020 5:25 PM
--- NOTE | 2020-12-12 06:39 | Electrocardiogram Report ---
Test Reason : Blood Pressure : / mmHG Vent. Rate : 103 BPM Atrial Rate : 103 BPM P-R Int : 186 ms QRS Dur : 102 ms QT Int : 364 ms P-R-T Axes : 047 221 072 degrees QTc Int : 476 ms Sinus tachycardia Possible Left atrial enlargement Right superior axis deviation Poor R wave progression, consider anterior NV vs. lead placement vs. LVH Abnormal ECG When compared with ECG of 26-SEP-2020 15:55, No significant change was found Confirmed by Peter Sadler ([id number]) on 12/12/2020 6:38:42 AM Referred By: REFERRED SELF Confirmed By:Peter Sadler
[2020-12-12 07:05] LABS: Hematocrit (blood only) 51.1 % (42-52); Hemoglobin 14.1 g/dL (14.0-18.0); Mean Corpuscular Hemoglobin 19.4 pg (25-34); Mean Corpuscular Hgb Conc 27.6 g/dL (32-36); Mean Corpuscular Volume 70.4 fL (80-100); Platelet Count 182 K/uL (130-400); RDW Coefficient of Variation 22.8 % (11.5-14.5); RDW Standard Deviation 56.1 fL (36.4-46.3); Red Blood Count 7.26 M/uL (4.7-6.1); White Blood Count 8.99 K/uL (4.8-10.8)
[2020-12-12 07:06] LABS: Partial Thromboplastin Time 25.8 Seconds (21.0-31.0)
[2020-12-12] MEDS: LACTATED RINGER'S 1,000 ML IV SCH (07:11)
[2020-12-12 07:20] LABS: Albumin Level 3.3 gm/dl (3.4-5.0); BUN Creatinine Ratio 17.2 (10-20); Calcium 8.8 mg/dl (8.5-10.1); Creatinine Clr Calc Pharmacy 126.5 ml/min; Est GFR (African American) 85.6; Est GFR (Non-African American) 73.8; Potassium 4.5 mmol/L (3.5-5.1)
[2020-12-12 07:22] LABS: Albumin Globulin Ratio 0.8 (0.9-2); Bilirubin,Total 0.4 mg/dl (0.2-1); Globulin 4.3 gm/dl (2.5-4.0); Total Protein 7.6 gm/dl (6.4-8.2)
[2020-12-12 07:38] LABS: Anisocytosis Present; Basophils # (auto) 0.01 K/uL (0-0.2); Basophils % (auto) 0.1 %; Immature Granulocytes # (auto) 0.04 K/uL (0.00-0.02); Immature Granulocytes % (auto) 0.4 %; Lymphocytes # (auto) 0.72 K/uL (1.2-3.4); Microcytosis Present; Monocytes # (auto) 0.43 K/uL (0.11-0.59); Monocytes % (auto) 4.8 %; Neutrophils # (auto) 7.79 K/uL (1.4-6.5); Neutrophils % (auto) 86.7 %
[2020-12-12] MEDS ORDERED: ENOXAPARIN INJ 40 MG/0.4 ML SYR SQ SCH (08:00)
[2020-12-12] MEDS: FERROUS SULFATE 325 MG TAB PO SCH (09:05)
[2020-12-12] MEDS: methylPREDNISolone 40 MG in SYRINGE 0 ML IV SCH (09:05)
[2020-12-12] MEDS: ASPIRIN 81 MG ECTAB PO SCH (09:05)
--- NOTE | 2020-12-12 09:38 | Cardiology Progress Note ---
Date of Service December 12, 2020 Assessment & Plan (1) Elevated troponin I level: This does not appear to be an acute coronary syndrome. -- Troponin I levels were 0.114, 0.078, 0.031, and 0.023 ng/ml. -- EKG's showed no acute changes. -- Continue Aspirin 81 mg daily for primary prevention. -- Continue Metoprolol Succinate ER 25 mg daily. (2) TELMA (obstructive sleep apnea): Patient has not tolerated CPAP masks in the past. He typically sleeps sideway on a bed with his feet on the floor and sleeps only with a cervical pillow to "open" his airway. His usually wakes him if he is snoring too loudly or if he stops breathing. Today, in the morning hours and while he was sleeping he had several periods of bradycardia, apnea, hypopnea, and some cardiac pauses (longest pause was 6.5 seconds) -- no symptoms reported. When he's awake his HR ranges between 70 to 105 bpm. -- Arrangements have been made to have CPAP set up at home upon discharge. -- Encouraged weight loss, decreasing body mass. -- Patient is scheduled to meet with Dr. Rosado later this week for a Sleep Medicine Consultation. 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 His sheer muscle density and the thickness of his torso probably cause him to hypoventilate, restricting his chest and lung expansion. -- Encouraged weight loss, decreasing body mass. -- Recommend discontinuing anabolic steroids. -- Continue supplemental O2 at 1 L/min as needed during the day, 3 L/min at bedtime along with CPAP. (4) Rhabdomyolysis: -- Possibly secondary to coronavirus vaccine vs. heavy weight lifting. -- Initial CK 701 U/L and has trended down to 366 U/L today. -- Received IVF's. -- Myalgias have improved. (5) Acute renal insufficiency: -- Initial serum creatinine was 1.91 mg/dl, has trended down to his baseline of 1.19 mg/dl. -- Valsartan and Hydrochlorothiazide have been discontinued. -- Avoid nephrotoxic medications/drugs. (6) Adverse reaction to COVID-19 vaccine: Patient was admitted on 12/11/20 with generalized myalgias, arthralgias, and dyspnea that appeared and worsened after he received the first Pfizer COVID-19 vaccine 3 days prior to admission. -- Arthralgias and myalgias are reported systemic side effects with COVID 19 vaccine (mRNA). -- Myalgias are more common with this vaccine if patients were previously infected with SARS CoV2, which he had in September 2020. (7) Hypertension: -- Continue Metoprolol Succinate ER 25 mg daily - this low dose lone agent is unlikely to control his blood pressure jail. -- Valsartan and Hydrochlorothiazide have been discontinued due to FELIPA. -- Consider restarting a CCB at follow-up visit. -- Maintain a 2 gram low sodium diet. Admission and Anticipated Discharge Date Admission Date: December 11, 2020 Subjective Mr. Ballesteros is a 45-year-old male with a history of Asthma, Hypertension, Polycythemia, Obstructive Sleep Apnea, Tobacco Use Disorder, Testicular Torsion, Morbid Obesity, Anabolic Steroid Use, and Acute Hypoxic Respiratory Failure secondary to SARS CoV-2 Pneumonia (September 2020) -- who was admitted on 12/11/20 with generalized myalgias, arthralgias, and dyspnea that appeared and worsened after he received the first Pfizer COVID-19 vaccine 3 days prior to admission. He was diagnosed with rhabdomyolysis/FELIPA, was hypoxic, and had a mildly abnormal Troponin I level -- likely demand ischemia related to hypoxia, OHS, and TELMA. He is chronically on supplemental O2 at 1 L/min as needed during the day and 3 L/min at bedtime. Today, in the morning hours and while he was sleeping he had several periods of bradycardia, apnea, hypopnea, and some cardiac pauses (longest pause was 6.5 seconds) -- no symptoms reported. When he's awake his HR ranges between 70 to 105 bpm. Patient offers no other complaints, and is anxious to be discharged. Patient denies any exertional chest pain, heaviness, tightness, pressure, or discomfort. He denies any exertional neck, jaw, back, or arm pain. He denies any shortness of breath at rest, orthopnea, or PND. Patient further denies any palpitations, or any history of syncope or near syncope. His renal function has improved - serum creatinine is down to 1.19 mg/dl from a peak of 1.91 mg/dl. Troponin I has trended down. Arthralgias and myalgias have improved. SOB has improved as well. 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 He has been unable to do aerobic activities after having SARS CoV2 pneumonia in September 2020 which was complicated by hypoxemia -- but he has recently re-introduced cardio in his exercise program, walking on a treadmill. He has been lifting weights on a regular basis, uses his inhaler before and during his workouts. The one medication that he is taking that is not listed on his medication list is IM Testosterone 300 mg every 7-10 days. Physical Exam Physical Exam: GENERAL: Heavily muscled male in no acute distress. HEENT: Head is atraumatic, normocephalic. EOM's intact. Facies symmetric. No perioral cyanosis. NECK: No JVD. JVP does not appear to be elevated. Carotid upstrokes are + 2 bilaterally. No bruits are noted. CHEST/LUNGS: Breath sounds are distant, but clear. No wheezes, rales, or crackles. CVS: S1 and S2 are regular with a grade 1/6 systolic murmur at left sternal border. No diastolic murmurs. No gallops or rubs. PMI is nonpalpable. No lifts, heaves, or thrills. No abdominal aortic or renal bruits. ABDOMINAL EXAM: Bowel sounds are present. No masses, organomegaly, or tenderness. EXTREMITIES: No clubbing or cyanosis. Trace pretibial edema bilaterally. Intact posterior tibial and radial pulses bilaterally. NEUROLOGIC EXAM: Patient is awake, alert, and oriented. Pleasant and cooperative. Answers questions appropriately. Speech is clear. Normal movement in all 4 extremities. Gait pattern is unremarkable. ECHOCARDIOGRAM 11/17/20: -- Normal LV systolic function. -- Mild concentric LVH. -- LVEF 55% to 60%, No WMA's -- No significant valvular abnormalities. -- Normal RV size and systolic function. -- Normal IVC size and collapsibility index. TELEMETRY: -- Sinus rhythm to sinus tachycardia while awake. -- Sinus bradycardia and cardiac pauses this morning while sleeping, secondary to apnea and hypopnea. Results & Data ([facility]) Vital Signs (Past 12 Hours) Vital Signs Temp Pulse Resp BP Pulse Ox 12/12/20 07:48 36.7 C 83 18 158/96 H 95 12/12/20 03:09 36.7 C 95 H 24 167/123 H 92 12/11/20 23:21 36.6 C 105 H 22 157/98 H 94 Laboratory Results Laboratory Results - last 24 hr 12/11/20 12/11/20 12/12/20 12:46 20:25 06:14 WBC 8.99 RBC 7.26 H Hgb 14.1 Hct 51.1 MCV 70.4 L MCH 19.4 L MCHC 27.6 L RDW Std Deviation 56.1 H RDW Coeff of Juan 22.8 H Plt Count 182 Immature Gran % (Auto) 0.4 Neut % (Auto) 86.7 Lymph % (Auto) 8.0 [place] % (Auto) 4.8 Eos % (Auto) 0.0 Baso % (Auto) 0.1 Neut # (Auto) 7.79 H Lymph # (Auto) 0.72 L [place] # (Auto) 0.43 Eos # (Auto) 0.00 Baso # (Auto) 0.01 Immature Gran # (Auto) 0.04 H Anisocytosis Present Microcytosis Present APTT PTT Ratio Sodium Potassium Chloride Carbon Dioxide Anion Gap BUN Creatinine Est Cr Clr Drug Dosing Est GFR ( Amer) Est GFR (Non-Af Amer) BUN/Creatinine Ratio Glucose Calcium Total Bilirubin AST ALT Alkaline Phosphatase Total Creatine Kinase Troponin I 0.031 0.023 Total Protein Albumin Globulin Albumin/Globulin Ratio 12/12/20 12/12/20 06:14 06:14 WBC RBC Hgb Hct MCV MCH MCHC RDW Std Deviation RDW Coeff of Juan Plt Count Immature Gran % (Auto) Neut % (Auto) Lymph % (Auto) [place] % (Auto) Eos % (Auto) Baso % (Auto) Neut # (Auto) Lymph # (Auto) [place] # (Auto) Eos # (Auto) Baso # (Auto) Immature Gran # (Auto) Anisocytosis Microcytosis APTT 25.8 PTT Ratio 1.0 Sodium 136 Potassium 4.5 Chloride 100 Carbon Dioxide 35 H Anion Gap 1.0 L BUN 20 H Creatinine 1.19 D Est Cr Clr Drug Dosing 126.5 Est GFR ( Amer) 85.6 Est GFR (Non-Af Amer) 73.8 BUN/Creatinine Ratio 17.2 Glucose 217 H Calcium 8.8 Total Bilirubin 0.4 AST 29 ALT 47 Alkaline Phosphatase 56 Total Creatine Kinase 366 H Troponin I Total Protein 7.6 Albumin 3.3 L Globulin 4.3 H Albumin/Globulin Ratio 0.8 L Diagnostic Findings CTA CHEST 12/11/20: 1. Exam significantly compromised by artifact. No central pulmonary embolus. Remainder of pulmonary arteries suboptimally assessed on this exam. 2. Cardiomegaly. 3. Linear and groundglass opacities within the lungs suggestive of atelectasis. 4. Dilatation of the central pulmonary arteries which raises the possibility of pulmonary arterial hypertension. B/L LE VENOUS DUPLEX 12/11/20: -- No DVT within the right or left lower extremity. CXR 12/11/20: -- No acute cardiopulmonary findings. -- Resolution of bilateral airspace opacities. -- Comparison study 09/26/20. Medications Administered Aspirin (Aspirin 81 Mg Ectab) 81 mg PO QAM [facility] Stop: 01/10/21 08:59 Last Admin: 12/12/20 09:05 Dose: 81 mg Documented by: [id number] Admin: 12/11/20 07:57 Dose: 81 mg Documented by: [id number] Enoxaparin Sodium (Enoxaparin Inj 40 Mg/0.4 Ml Syr) 40 mg SQ Q12H [facility] Stop: 01/11/21 07:59 Last Admin: 12/12/20 09:08 Dose: 40 mg Documented by: [id number] Ferrous Sulfate (Ferrous Sulfate 325 Mg Tab) 325 mg PO DAILY [facility] Stop: 01/10/21 08:59 Last Admin: 12/12/20 09:05 Dose: 325 mg Documented by: [id number] Admin: 12/11/20 07:57 Dose: 325 mg Documented by: [id number] Methylprednisolone 40 mg/ (Syringe) 0.64 mls @ 1.5 mls/min IV Q8H [facility] Stop: 01/10/21 07:59 Last Admin: 12/12/20 09:05 Dose: 1.5 mls/min Documented by: [id number] Admin: 12/11/20 23:20 Dose: 1.5 mls/min Documented by: [id number] Admin: 12/11/20 15:39 Dose: 1.5 mls/min Documented by: [id number] Admin: 12/11/20 07:57 Dose: 1.5 mls/min Documented by: [id number] Lactated Ringer's (Lr) 1,000 mls @ 125 mls/hr IV .Q8H [facility] Stop: 01/10/21 08:59 Last Admin: 12/12/20 07:11 Dose: 125 mls/hr Documented by: [id number] Infusion: 12/12/20 07:10 Dose: 0 mls/hr Documented by: [id number] Admin: 12/11/20 23:19 Dose: 125 mls/hr Documented by: [id number] Infusion: 12/11/20 23:19 Dose: 125 mls/hr Documented by: [id number] Admin: 12/11/20 16:25 Dose: 125 mls/hr Documented by: [id number] Infusion: 12/11/20 16:25 Dose: 125 mls/hr Documented by: [id number] Admin: 12/11/20 09:08 Dose: 125 mls/hr Documented by: [id number] Metoprolol Succinate (Metoprolol Succ 25mg Ext Rel Tab) 25 mg PO QAM [facility] Stop: 01/10/21 08:59 Last Admin: 12/11/20 07:57 Dose: 25 mg Documented by: [id number] Discontinued Medications Albuterol (Albut/Ipratrop 3mg/0.5mg Neb 3 Ml Vial) 12 ml NEB ONE ONE Stop: 12/10/20 23:22 Last Admin: 12/10/20 23:45 Dose: 12 ml Documented by: [id number] Albuterol (Albut/Ipratrop 3mg/0.5mg Neb 3 Ml Vial) 3 ml NEB QIDR [facility] Stop: 01/10/21 06:59 Last Admin: 12/11/20 07:10 Dose: 3 ml Documented by: [id number] Aspirin (Aspirin Chew 324 Mg) 324 mg PO NOW STA Stop: 12/11/20 01:07 Last Admin: 12/11/20 01:19 Dose: 324 mg Documented by: [id number] Budesonide (Budesonide 0.5 Mg/2 Ml Vial (Pulmicort)) 0.5 mg NEB BIDR [facility] Stop: 01/10/21 06:59 Last Admin: 12/11/20 07:10 Dose: 0.5 mg Documented by: [id number] Enoxaparin Sodium (Enoxaparin Inj 40 Mg/0.4 Ml Syr) 40 mg SQ Q12H [facility] Stop: 01/10/21 08:59 Last Admin: 12/11/20 09:08 Dose: 40 mg Documented by: [id number] Magnesium Sulfate/Dextrose (Magnesium Sulfate / D5w) 1 gm in 100 mls @ 100 mls/hr IV NOW STA Stop: 12/11/20 00:21 Last Infusion: 12/11/20 01:18 Dose: 0 mls/hr Documented by: [id number] Admin: 12/10/20 23:42 Dose: 100 mls/hr Documented by: [id number] Acetaminophen (Ofirmev) 1,000 mg in 100 mls @ 400 mls/hr IV NOW STA Stop: 12/11/20 00:39 Last Infusion: 12/11/20 04:19 Dose: 0 mls/hr Documented by: [id number] Admin: 12/11/20 01:19 Dose: 400 mls/hr Documented by: [id number] Sodium Chloride (Nss 1000ml) 1,000 mls @ 999 mls/hr IV .Q1H1M ONE Stop: 12/11/20 02:04 Last Infusion: 12/11/20 04:18 Dose: 0 mls/hr Documented by: [id number] Admin: 12/11/20 01:20 Dose: 999 mls/hr Documented by: [id number] Sodium Chloride (Nss 1000ml) 1,000 mls @ 100 mls/hr IV .Q10H [facility] Stop: 01/10/21 03:54 Last Infusion: 12/11/20 08:47 Dose: 0 mls/hr Documented by: [id number] Admin: 12/11/20 04:25 Dose: 100 mls/hr Documented by: [id number] Heparin Sodium/Dextrose (Heparin Sodium/Dextrose) 25,000 units in 500 mls @ 41 mls/hr IV .[id number] [facility]; Protocol Stop: 01/10/21 16:29 Last Titration: 12/11/20 19:28 Dose: 0 units/hr, 0 mls/hr Documented by: [id number] Cosigned by: [id number] Admin: 12/11/20 16:25 Dose: 2,050 units/hr, 41 mls/hr Documented by: [id number] Cosigned by: [id number] Heparin Sodium (Porcine) 9,000 (units/ Syringe) 9 mls @ 10 mls/min IV NOW ONE Stop: 12/11/20 16:31 Last Admin: 12/11/20 16:24 Dose: 10 mls/min Documented by: [id number] Cosigned by: [id number] Ioversol (Optiray 320 125ml) 118 ml IV ONCE ONE Stop: 12/11/20 17:03 Last Admin: 12/11/20 17:02 Dose: 118 ml Documented by: [id number] Ketorolac Tromethamine (Ketorolac 30 Mg/Ml Vial) 30 mg IV NOW ONE Stop: 12/10/20 23:22 Last Admin: 12/10/20 23:42 Dose: 30 mg Documented by: [id number] Methylprednisolone (Methylprednisolone 125 Mg/2 Ml Vial) 125 mg IV NOW STA Stop: 12/10/20 23:22 Last Admin: 12/10/20 23:42 Dose: 125 mg Documented by: [id number] Metoprolol Succinate (Metoprolol Succ 25mg Ext Rel Tab) 25 mg PO NOW STA Stop: 12/11/20 04:36 Last Admin: 12/11/20 05:04 Dose: 25 mg Documented by: [id number] PG Care Time/CCT Total # of Minutes Spent Total Time Spent with Patient: Total time spent is greater than 50% in coordination of care (as documented) at patient's floor/unit and/or counseling patient: Coding Level of Care Code 74317 Subseq Hosp Care Lvl 3 Diagnoses Elevated troponin I level R77.8 TELMA (obstructive sleep apnea) G47.33 Obesity hypoventilation syndrome E66.2 Rhabdomyolysis T79.6XXA Encounter type: initial encounter Rhabdomyolysis type: traumatic Acute renal insufficiency N28.9 Adverse reaction to COVID-19 vaccine [id number].B95A Hypertension I10 (1) Rhabdomyolysis Encounter type: initial encounter Rhabdomyolysis type: traumatic Qualified Code(s): T79.6XXA - Traumatic ischemia of muscle, initial encounter
--- NOTE | 2020-12-12 10:31 | Hospitalist Progress Note ---
Date of Service December 12, 2020 Assessment & Plan (1) Elevated troponin I level: Elevated troponin I level/hypertension EKG without acute findings, Likely type II WA, supply demand mismatch. His significant other reports heart rate has been in the low 100s for the last number of weeks Recent outpatient echocardiogram on 11/17/2020, with ejection fraction 55-60% and negative treadmill. Has upcoming outpatient appointment with Dr. Sadler, who will be consulted this admission. The patient will be admitted to telemetry for serial cardiac enzymes, serial EKG's, cardiac rhythm monitoring. Holding amlodipine, HCTZ, and valsartan due to associated acute kidney injury and likely contributing to reflex tachycardia. Started on metoprolol succinate 25 mg in the range of 25 mg of aspirin in the ed, and then 25 mg of metoprolol and 81 mg of aspirin every morning. Of note, his father did recently of an WA, and had been on metoprolol. -Trending troponins -0.114->0.078 -Consult cardiology appreciate recommendations -Baby aspirin daily -Metoprolol 25 mg every morning -Holding amlodipine, HCTZ, and valsartan secondary to FELIPA Hypoxia likely multifactorial Etiologies include tobacco use disorder, asthma exacerbation, TELMA, obesity hypoventilation syndrome, pulmonary emboli and persistent unresolved symptoms since initial COVID-19 infection 09/26/2020. Venous Doppler study was negative for lower extremity DVT. -As needed O2 goal greater than 92% -DuoNebs every 4 hours while awake and every 2 hours as needed -Pulmicort 0.5 mg twice daily -Methylprednisone 40 mg IV every 8 H -wells score 7.5 -> Initiate Heparin with bolus d/c pending results - needs CTA PE protocol, spoke with Radiology GFR of 55.2 is acceptable for dye administration - cta neg d/c heparin History of COVID-19 Admission from 09/26-09/30/2020, with some persistent symptoms since that time. FELIPA on CKD/rhabdomyolysis Symptoms of myalgias and arthralgias have worsened considerably since he received the first dose of the [employer] COVID-19 vaccine 3 days ago. History of heavy weightlifting and taking large doses of creatine. Creatinine is 1.9 on admission, baseline is 1.3, CK 701. Given 2 L normal saline in ED, and continued on admission at 100 mils per hour. Holding nephrotoxic agents amlodipine, HCTZ, valsartan, meloxicam -Daily BMP -cr: 1.9->1.7 -Avoid nephrotoxic agents -LR @ 125 Rhabdomyolysis See above Polycythemia of unclear etiology. With TELMA history, could be reactive, unknown if he has had JAK2 mutation testing. Has an upcoming appointment with Dr. Licea, hematology/oncology. Hemoglobin on admission was 13.8, with no intervention needed. -Trend CBC Tobacco use disorder Cessation counseling TELMA Has had difficulty tolerating a CPAP mask in the past. Reports that he has an outpatient appointment with Dr. Rosado in 5 days History of testicular torsion Has followed with urology when [place] in another [place], and will be establishing with urology here. Morbid Obesity Contribution to TELMA, hypoxia and cardiac issues noted FENa: Heart healthy Code Status: Full code DVT PPX: Lovenox 40 mg every 12 hours PT/OT: Not indicated Dispo: Telemetry Ronen Winkler MD PGY 2, FCM This chart was completed utilizing [employer] voice recognition software. Grammatical errors, random word insertions, pronoun errors, and in complete sentences are an occasional consequence of the system. Any questions or concerns about the content, text, or information contained within the body of this dictation should be addressed directly to the physician for clarification. (2) Hypoxia: Hypoxia likely multifactorial- Possibly related to: Tobacco use disorder, asthma exacerbation, ETLMA, obesity hypoventilation syndrome, pulmonary emboli and persistent unresolved symptoms since initial COVID-19 infection 09/26/2020 Ordering lower extremity venous Dopplers. Will place on nasal cannula oxygen for now, will target pulse ox 92%. VQ scan will not be ordered for the a.m., as would not likely give good results with his body habitus. Unable to order CT angio PE protocol tonight due to creatinine 1.9, but hopefully will be reduced after IV fluid rehydration this evening, and if necessary will pursue in the a.m. Duonebs every 4 hours while awake and every 2 hours when necessary. Pulmicort Respules 0.5 mg inhaled twice daily Methylprednisolone 40 mg IV every 8 hours (3) Personal history of COVID-19: Admission from 09/26-09/30/2020, with some persistent symptoms since that time. (4) Acute kidney injury superimposed on CKD: FELIPA on CKD/rhabdomyolysis- Symptoms of myalgias and arthralgias have worsened considerably since he received the first 5 0 COVID-19 vaccine 3 days ago. He does take large doses of creatine and does do. Do heavy exercise. Creatinine 1.91 upon admission, with baseline 1.30 CK 701. Repeat all laboratories in the a.m. He did receive 2 L normal saline in the ED, and will continue fluid intake. We will be holding potential nephrotoxic agents: For losartan, meloxicam, HCTZ. (5) Rhabdomyolysis: See above (6) Tobacco use disorder: Cessation counseling. Likely also contributing to his polycythemia (7) TELMA (obstructive sleep apnea): Has had difficulty tolerating a CPAP mask in the past. Reports that he has an outpatient appointment with Dr. Rosado in 5 days (8) Polycythemia: Polycythemia of unclear etiology. With TELMA history, with make sense that is at least in part reactive. Unknown if he has had JAK2 mutation testing. Has an upcoming appointment with Dr. Licea, hematology/oncology. Hemoglobin today is 13.8, with no intervention needed. (9) Hypertension: See above (10) Testicular torsion: Has followed with urology when he lived in another state, and will be establishing with urology here. (11) Morbid obesity with BMI of 50.0-59.9, adult: Contribution to TELMA, hypoxia and cardiac issues noted Admission and Anticipated Discharge Date Admission Date: December 11, 2020 Results & Data Results & Data ([facility]) Vital Signs (Past 12 Hours) Vital Signs Temp Pulse Resp BP Pulse Ox 12/12/20 07:48 36.7 C 83 18 158/96 H 95 12/12/20 03:09 36.7 C 95 H 24 167/123 H 92 12/11/20 23:21 36.6 C 105 H 22 157/98 H 94 (1) Rhabdomyolysis Encounter type: initial encounter Rhabdomyolysis type: traumatic Qualified Code(s): T79.6XXA - Traumatic ischemia of muscle, initial encounter
--- NOTE | 2020-12-12 12:40 | Discharge Summary ---
Date of Service December 12, 2020 Admission HPI Per Admitting Provider The patient is a 45-year-old male with a past medical history including asthma, tobacco use disorder, TELMA, morbid obesity with BMI 50-59.9, testicular torsion, hypertension, polycythemia requiring periodic phlebotomy and intermittent cough and dyspnea on exertion since hospitalization for COVID-19 infection from 09/26- 09/30/20 at [facility]. In the emergency department tonight, he was COVID-19 negative. His troponin was increased to 0.114, CK 701, AST 48, creatinine 1.91 with baseline 1.30, and pulse ox 82% on room air which increased to 92% on 3 L nasal cannula oxygen. Admission Exam Per Admitting Provider The patient is awake, alert and oriented 3, well developed and well nourished, normocephalic and atraumatic, lying in bed and in no acute distress. HEENT--PERRL, EOMI, mucous membranes and oropharynx dry. Neck--supple. No JVD. No bruits. Thyroid normal, trachea midline, no adenopathy. Heart--normal S1 and S2. No murmurs, rubs or gallops. Lungs--diminished breath sounds throughout. No respiratory distress, no accessory muscle use. Abdomen--normal bowel sounds and soft. Nontender. Nondistended. Morbidly obese Extremities--no cyanosis or clubbing. 1+ bilateral pretibial pitting edema. Dermatologic--normal skin turgor, normal color, no abnormal lymph nodes, no rash. Neurologic--cranial nerves II through XII grossly intact. Rheumatologic--normal range of motion. Psychiatric--normal affect. Principal Diagnosis elevated troponin, rhabdomyolysis Discharge Exam Constitutional: obese, in no apparent distress, sitting comfortably in bed. Eyes: EOMI, pupils equal and reactive bilaterally, no scleral icterus Cardiac: RRR, no murmurs, gallops or rubs. Normal S1, S2 Pulm: CTA BL, no wheezes, rhonchi, crackles or rubs, moving air well throughout both lungs Abd: soft, nontender, nondistended, normal bowel sounds, no rebound or guarding Extremities: 2+ peripheral pulses, no edema Neuro: no focal deficits, moving all 4 limbs, A&Ox3 Discharge Data Allergies Allergy/AdvReac Type Severity Reaction Status Date / Time lisinopril AdvReac Severe swelling Verified 12/11/20 00:10 of face sulfamethoxazole AdvReac Severe swelling Verified 12/11/20 00:10 [From Bactrim] of face trimethoprim [From Bactrim] AdvReac Severe swelling Verified 12/11/20 00:10 of face Consultations 12/11/20 00:42 ED Decision to Admit Stat 12/11/20 03:55 Consult Cardiology Routine Ordered Studies 12/11/20 00:41 US venous doppler LE BI Urgent 12/11/20 15:55 CT angio chest PE protocol Urgent Hospital Course (1) Elevated troponin I level: Elevated troponin I level/hypertension - EKG without acute findings, Likely type II CA, supply demand mismatch. - Echocardiogram on 11/17/2020, with ejection fraction 55-60% and negative alphonso admill. - Follow up with Cardiology for outpatient stress test. - HCTZ, amlodipine, valsartan discontinued in setting of FELIPA on CKD + Rhabdomyolysis. Added 25 mg Metoprolol Succinate daily. Discuss restarting hypertensive regimen with cardiology outpatient. - Cr 1.00 on discharge Hypoxia likely multifactorial - concern for PE: negative D-dimer, suboptimal CTA chest with no central pulmonary embolus - likely TELMA + OHS, doesn't currently use CPAP at home. on 3L NC at home since last admission for COVID? - venous dopplers negative - unable to acquire CPAP for home use prior to discharge, heavily emphasized importance of needing to stay for home Bipap qualification but patient insisted on needing to leave. Heavily emphasized importance of sitting up while sleeping, using clavicle pillow, following up with Dr. Rosado this week for sleep study. FELIPA on CKD/rhabdomyolysis improved with fluids and changing hypertensive medication regimen (2) Hypoxia: (3) Personal history of COVID-19: (4) Acute kidney injury superimposed on CKD: (5) Rhabdomyolysis: (6) Tobacco use disorder: (7) TELMA (obstructive sleep apnea): (8) Polycythemia: (9) Hypertension: (10) Testicular torsion: (11) Morbid obesity with BMI of 50.0-59.9, adult: Total Time Total Time Spent Total Time Spent (In Minutes): <30 Discharge Plan Discharge Items Patient Disposition: Home - Self-Care Reason For Visit: ELEVATED TROPONIN, FELIPA, RHABDO, HYPOXIA, TELMA Discharge Diagnosis: Rhabdomyolysis Activity: Resume your previous activity Non-emergency contact: Primary Care Provider and Sand Molder Call non-emergency contact if: your symptoms worsen Follow-up/Referrals: Romy Wells DO [Primary Care Provider] - 12/15/20 4:20 pm Diet: Low Sodium (2gm) Addtl Attending Provider Instructions: You were evaluated in the hospital for muscle and joint pain and found to have an elevated heart enzyme, acute kidney injury and rhabdomyolysis (muscle breakdown). Your heart enzymes improved and did not appear to be due to any acute heart problems. We recommend keeping your appointment with Shon Fierro to get an outpatient stress test to look at plaque build up in your heart. Your kidney injury improved with changing your blood pressure medications and hydration. Your blood pressure medication was switched to Metoprolol Succinate which is a daily medication to help lower your pressure without harming your kidneys. 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 It is very important that you keep well hydrated going forward to prevent yourself from having dehydration injuries like kidney injury and rhabdomyolysis. While you were in the hospital you had multiple cardiac pauses where your heart stopped for 6 seconds at a time while you were sleeping. It is VITALLY IMPORTANT that you get and use a CPAP or BIPAP machine to use nightly to treat your sleep apnea. Sleep apnea can cause high blood pressures and cause your heart to have abnormal electrical patterns like these pauses or to not start again. Keep your appointment with Dr. Rosado to have the sleep study outside of the hospital. Continue using the 3 litres of oxygen at nighttime with sleep and oxygen during the day when short of breath and walking around. Pending Studies at Discharge: No Stand-Alone Forms: My [facility] Populr, Smoking Cessation Medications and DC Order Prescriptions: New acetaminophen 325 mg Tablet 650 mg PO Q4H PRN (Reason: pain) Qty: 30 RF: 0 aspirin 81 mg Tablet,Delayed Release (Dr/Ec) 81 mg PO QAM Qty: 30 RF: 0 metoprolol succinate 25 mg Tablet Extended Release 24 Hr 25 mg PO QAM 14 Days Qty: 14 RF: 0 Continued ferrous sulfate 325 mg (65 mg iron) tablet 325 mg PO DAILY Qty: 90 RF: 0 albuterol sulfate 90 mcg/actuation Hfa Aerosol Inhaler 1 puff INHALATION QID PRN (Reason: Shortness Of Breath Or Wheezing) RF: 0 diclofenac sodium [Voltaren] 1 % gel 2 g topical QID PRN (Reason: Muscle Pain) RF: 0 ipratropium-albuterol 0.5 mg-3 mg(2.5 mg base)/3 mL Solution For Nebulization 3 ml NEB Q4R PRN (Reason: shortness of breath) Qty: 1 RF: 0 Discontinued mupirocin 2 % ointment 1 applic topical TID PRN (Reason: nasal dryness) Qty: 22 RF: 0 amlodipine [Norvasc] 10 mg tablet 10 mg PO DAILY Qty: 30 RF: 2 tadalafil 5 mg tablet 10 mg PO Q OTHER DAY Qty: 90 RF: 0 valsartan 160 mg tablet 160 mg PO DAILY Qty: 90 RF: 3 hydrochlorothiazide 12.5 mg Tablet 12.5 mg PO DAILY RF: 0 meloxicam 15 mg Tablet 15 mg PO DAILY RF: 0 benzonatate [Tessalon Perles] 100 mg capsule 100 mg PO TID PRN (Reason: Cough) RF: 0 Discharge Orders: Discharge Order (Routine); Ordered 12/12/20 Ordered By: Kaur Dacosta Admission Data Admit Date/Time: 12/11/20 02:22 Attending Provider: Jorge Dennison Admit Provider: Phoenix Plummer Primary Care Provider: Romy Wells Other Providers: Phoenix Plummer ; Peter Sadler ; Kaur Dacosta ; Kassandra Doss Other Interventions: Discharge Summary Assessment (RN) Last Done: 12/12/20 12:52 Supervising Physician Co-Signing Physician Notes I personally examined the patient and verified all [place] points of history and exam, discussed case, and agree with decision making with Dr Dacosta. Feeling okay. Feeling up to going home. Extensive discussion on lifestylediscussed how quickly a power lifting or body building lifestyle tends to start to accrue serious medical problems even as people reach middle-age. 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 Discussed dire need to treat sleep- related breathing, need for weight loss (currently he is eating about 10,000 obinna a day, and notes once he is done lifting he will probably drop this to about 3000, currently he does not seem to do much as far as cardiovascular exercise, once he is done lifting he notes that he will) Vitals noted, in general he is awake and alert pleasant no distress. HEENT normocephalic atraumatic mucous membranes moist. Wheezing unlabored no accessory muscle use good effort. Skin shows no rashes no pallor or icterus. AKIimproved. Temporary reaction to COVID-19 vaccineimproved. Obstructive sleep apnea/obesity hypoventilation syndromeoxygen, supportive care, dire need for management of sleep disordered breathinghe declines staying overnight for overnight pulse ox/a.m. blood gas that might allow us to set up BiPAP right from hospital discharge, he understands risks, but notes a dire need to get home. He does fortunately have follow-up with all the appropriate specialists already in place. Resident Activity Tracking Resident Involvement: Resident Care Provided Care Provided: Adult Hospital Medicine
[2020-12-12 12:47] LABS: D Dimer 300 ug/L FEU (0-500)
--- NOTE | 2020-12-12 20:15 | Billing Data ---
Date of Service December 12, 2020 Coding Level of Care Code D/C Day Management <30 mins
--- NOTE | 2020-12-13 05:16 | Electrocardiogram Report ---
Test Reason : Blood Pressure : / mmHG Vent. Rate : 097 BPM Atrial Rate : 097 BPM P-R Int : 204 ms QRS Dur : 108 ms QT Int : 362 ms P-R-T Axes : 049 223 068 degrees QTc Int : 459 ms Normal sinus rhythm Possible Left atrial enlargement Right superior axis deviation Poor R wave progression, consider anterior NC vs. lead placement vs. LVH Abnormal ECG When compared with ECG of 11-DEC-2020 00:08, No significant change was found Confirmed by Peter Sadler ([id number]) on 12/13/2020 5:16:10 AM Referred By: REFERRED SELF Confirmed By:Peter Sadler
--- NOTE | 2020-12-13 05:32 | Electrocardiogram Report ---
Test Reason : Blood Pressure : / mmHG Vent. Rate : 054 BPM Atrial Rate : 054 BPM P-R Int : 186 ms QRS Dur : 108 ms QT Int : 396 ms P-R-T Axes : -04 144 078 degrees QTc Int : 375 ms Sinus bradycardia with sinus arrhythmia Left posterior fascicular block Abnormal ECG When compared with ECG of 11-DEC-2020 08:17, Vent. rate has decreased BY 43 BPM Left posterior fascicular block is now Present QT has shortened Confirmed by Peter Sadler ([id number]) on 12/13/2020 5:32:18 AM Referred By: REFERRED SELF Confirmed By:Peter Sadler
== END 2020-12-12 15:13 | disposition home or self-care (01) ==
LOC: ED 22:37 → INTOOBSV 12-11 02:22 → SUATTDRO 12-11 02:22 → 2S 12-11 02:22

== ENCOUNTER 2024-10-12 07:47 | Inpatient (IN) ==
[2024-10-12] MEDS: SODIUM CHLORIDE 0.9% 1,000 ML IV SCH (08:20)
[2024-10-12 08:28] LABS: Hematocrit (blood only) 60.6 % (42.0-52.0); Hemoglobin 18.6 g/dl (14.0-18.0); Mean Corpuscular Hemoglobin 24.5 pg (25.0-34.0); Mean Corpuscular Hgb Conc 30.7 g/dL (32.0-36.0); Mean Corpuscular Volume 79.9 fL (80.0-100.0); Platelet Count 140 K/uL (130-400); RDW Coefficient of Variation 21.3 % (11.5-14.5); RDW Standard Deviation 55.1 fL (36.4-46.3); Red Blood Count 7.58 M/uL (4.70-6.10); White Blood Count 5.33 K/ul (4.8-10.8)
--- NOTE | 2024-10-12 08:51 | XRay Report ---
XR chest 2V PA/lateral HISTORY: 49 years-old Male RUL pneumonia acute shortness of breath COMPARISON: 10/11/2024 TECHNIQUE: PA and lateral views of the chest FINDINGS: Cardiac silhouette is enlarged, unchanged. Stable right hemidiaphragmatic elevation. No pneumothorax or pleural effusion. Bilateral mixed interstitial and alveolar opacities have progressed from prior. There is persistent dense right upper lobe airspace consolidation. IMPRESSION: Findings compatible with progressive multifocal pneumonia. ACT 112: Negative or not required by law. The above report was generated using voice recognition software. It may contain grammatical, syntax o r spelling errors. Electronically signed by: Pj Young M.D. 10/12/2024 8:50 AM
[2024-10-12 08:53] LABS: Appearance Urine Clear (Clear); Bacteria Urine Automated None Seen (None Seen); Bilirubin Urine Negative (Negative); Blood Urine 1+ (Negative); Cast Urine Automated 0-2 /lpf (0-2); Color Urine Yellow; Epithelial Cell Urine Auto 0-2 /hpf (0-2); Glucose Urine UA Negative (Negative); Ketones Urine Negative (Negative); Leukocyte Esterase Urine Negative (Negative); Nitrite Urine Negative (Negative); Protein Urine 3+ (Negative); RBC Urine Automated 0-2 /hpf (0-2); Specific Gravity Urine 1.017 (1.000-1.030); Urobilinogen Urine Negative (Negative); WBC Urine Automated 0-5 /hpf (0-5); pH Urine 5.5 (4.5-7.5)
[2024-10-12 08:55] LABS: Anisocytosis Present; Basophils # (auto) 0.03 K/uL (0.00-0.20); Basophils % (auto) 0.6 %; Eosinophils # (auto) 0.14 K/uL (0.00-0.50); Eosinophils % (auto) 2.6 %; Immature Granulocytes # (auto) 0.02 K/uL (0.01-0.20); Immature Granulocytes % (auto) 0.4 %; Lymphocytes # (auto) 0.84 K/uL (1.20-3.40); Lymphocytes % (auto) 15.8 %; Monocytes # (auto) 0.67 K/uL (0.11-0.59); Monocytes % (auto) 12.6 %; Neutrophils # (auto) 3.63 K/uL (1.40-6.50); Polychromasia 1+; Toxic Vacuolation 1+
[2024-10-12] MEDS: cefTRIAXone SODIUM 2,000 MG/50 ML BAG IV STA (09:23)
[2024-10-12] MEDS: AZITHROMYCIN 500 MG VIAL IV STA (09:28)
[2024-10-12] MEDS: AZITHROMYCIN 500 MG in SODIUM CHLORIDE 0.9% 250 ML IV ONE (09:57)
--- NOTE | 2024-10-12 10:03 | Emergency Department Note ---
ED Provider Note History of Present Illness Chief Complaint: Abnormal Labs/Diagnostic Testing Stated Complaint: LOX OX Time Seen by Provider: 10/12/24 08:13 49-year-old male who presents to the emergency department with a female friend (who also provides history of this illness) for evaluation of progressively worsening rib pain, right worse than left. He also reports feeling more short of breath compared to yesterday when he was seen in the emergency department for similar symptoms. The patient reports upper respiratory symptoms and cough for the past week. He denies any recent trauma to the ribs, but reports significant coughing. Patient has not had any chills or sweating. The patient did have a temperature at home up to 100.8 F. The patient reports that he was diagnosed with pneumonia on his visit yesterday, and was provided a prescription for Augmentin and azithromycin. The patient has only taken one dose of his medications to this point. The patient admits that he was offered admission yesterday for low oxygen level, but did not want to be admitted because of cost concerns. The patient currently rates his discomfort a 7 out of 10. Home Medications Medication Instructions Recorded Confirmed Type atorvastatin 20 mg tablet 20 mg PO HS 11/23/21 10/12/24 History fluticasone propionate 50 2 spray intranasal DAILY #16 grams 01/15/22 10/12/24 Rx mcg/actuation nasal spray,suspension (Flonase Allergy Relief) lidocaine 5 % topical gel See Rx Instructions topical TID 06/28/22 10/12/24 Rx PRN Pain #60 grams cetirizine 10 mg tablet (Zyrtec) 10 mg PO DAILY #90 tabs 01/02/23 10/12/24 Rx tadalafil 10 mg tablet (Cialis) 10 mg PO DAILY PRN sexual activity 01/02/23 10/12/24 Rx #30 tabs losartan 100 mg tablet 100 mg PO HS #90 tabs 06/26/23 10/12/24 Rx cyclobenzaprine 5 mg tablet 5 mg PO TID PRN muscle spasm #45 11/07/23 10/12/24 Rx tabs metoprolol succinate 50 mg 50 mg PO HS #90 tabs 11/07/23 10/12/24 Rx tablet,extended release 24 hr albuterol sulfate 90 mcg/actuation 1 puff inhalation QID PRN 08/05/24 10/12/24 Rx aerosol inhaler Shortness Of Breath Or Wheezing #18 grams amoxicillin 875 mg-potassium 1 tab PO BID #14 tabs 10/11/24 10/12/24 Rx clavulanate 125 mg tablet azithromycin 250 mg tablet 250 mg PO DAILY 4 days #4 tabs 10/11/24 10/12/24 Rx ipratropium 0.5 mg-albuterol 3 mg 3 ml inhalation Q8H PRN wheezing 10/11/24 10/12/24 Rx (2.5 mg base)/3 mL nebulization #180 mL soln hydrochlorothiazide 50 mg tablet 50 mg PO 2XWK 10/12/24 10/12/24 History spironolactone 100 mg tablet 100 mg PO HS 10/12/24 10/12/24 History Allergies Allergy/AdvReac Type Severity Reaction Status Date / Time lisinopril AdvReac Severe swelling Verified 10/12/24 10:45 of face sulfamethoxazole AdvReac Severe swelling Verified 10/12/24 10:45 [From Bactrim] of face trimethoprim [From Bactrim] AdvReac Severe swelling Verified 10/12/24 10:45 of face metformin AdvReac Intermediate Diarrhea Verified 10/12/24 10:45 Iodinated Contrast Media AdvReac NAUSEA, Verified 10/12/24 10:45 VOMITING Past Med/Surg History Problem List (Updated 10/12/24 @ 16:29 by Ronen Mulligan) Group A streptococcal infection (Acute) Acute hypokalemia (Acute) Hypomagnesemia (Acute) Hypoxia (Acute) Multifocal pneumonia (Acute) Hypomagnesemia Hypokalemia Hypoxia Multifocal pneumonia Community acquired pneumonia of right upper lobe of lung (Acute) Atypical chest pain Type 2 diabetes mellitus Periumbilical pain Keloid scar Seasonal allergies Poorly-controlled hypertension Polycythemia Follows with heme per PCP records- gets therapeutic phlebotomies every 2-4 weeks Asthma Hypertension Tobacco use disorder TELMA (obstructive sleep apnea) Morbid obesity with BMI of 50.0-59.9, adult (Acute) Heart murmur Obesity hypoventilation syndrome Erectile dysfunction Cholelithiasis Gallstone pancreatitis Medical History High BMI Competitive power computer science teacher History of pancreatitis Cardiac murmur Follows with [facility] No significant valve disease per 12/2020 stress ECHO and 11/17/20 ECHO History of seizure As a child > no further occurrence HTN (hypertension) Sleep apnea Bi-PAP History of COVID-19 09/2020; sob, cough, pneumonia --> hospitalized at [facility] -- also tested + 08/2021 - runny nose; resolved. Acute renal insufficiency Testicular torsion Surgical History History of liver biopsy (11/16/21) p Laparoscopic Cholecystectomy- Tray Hankins, DO s Laparoscopic Umbilical Hernia Repair, Right Lobe Liver Biopsy - Tray Hankins, DO 11/16/2021 H/O umbilical hernia repair (11/16/21) p Laparoscopic Cholecystectomy- Tray Hankins, s Laparoscopic Umbilical Hernia Repair, Right Lobe Liver Biopsy - Tray Hankins, DO 11/16/2021 Hx laparoscopic cholecystectomy (11/16/21) p Laparoscopic Cholecystectomy- Tray Hankins, s Laparoscopic Umbilical Hernia Repair, Right Lobe Liver Biopsy - Tray Hankins, DO 11/16/2021 History of colonoscopy History of esophagogastroduodenoscopy (EGD) History of testicular surgery hx testicular torsion S/P tooth extraction H/O shoulder surgery History of arthroscopic knee surgery Family History Father Myocardial infarction Denies family history of Ovarian cancer Prostate cancer Breast cancer Colorectal cancer Social History Smoking Status: Never smoker Tobacco Type: Smokeless Tobacco (Dip or Chew) Second Hand Exposure: No; Do You Dip or Chew Tobacco: Yes (advised npo status); Hx Alcohol Use: Yes Alcohol Intake Frequency: Monthly or Less Hx Substance Use: No Preferred Language: Fijian Communication Ability: Effective Visual Impairment: No Limitations Hearing Ability: Normal Lead Php Developer Required: No Beliefs That Will Affect Care: None marital status: Single Current Living Situation: Significant Other current occupational status: employed How many Children do You have: 0 Feels Safe at Home: Yes Childhood Exposure to Second-Hand Smoke: Yes Diet: regular caffeine: Yes Physical Activity Frequency: Other Physical Activity Frequency Comment: pt lifts weights- depends how many times a day Seatbelt Use: never Sunscreen Use: No Assistive Devices: BiPap Physical Exam Vital Signs Vital Signs - 24 hr 10/12/24 07:52 10/12/24 08:27 10/12/24 08:45 Temperature 36.8 C Temperature Source Oral Pulse Rate 115 H 96 H Pulse Rate [Apical] 111 H Respiratory Rate 32 H 22 Respiratory Effort / Characteristics Labored Non-Labored Spontaneous Respiratory Depth Normal Blood Pressure 188/112 H Blood Pressure [Left Arm] 147/105 H Blood Pressure Mean 137 Blood Pressure Mean [Left Arm] 119 Blood Pressure Position Sitting Blood Pressure Position [Left Arm] Sitting Pulse Oximetry 86 L 91 Oxygen Delivery Method Room Air Nasal Cannula Oxygen Flow Rate 2 Sepsis Recent Fever Within 48 Hours No Sepsis New/Unexplained Change in Mental Status No Sepsis Action Taken by Nursing No Action Required 10/12/24 09:33 Temperature Temperature Source Pulse Rate Pulse Rate [Apical] 102 H Respiratory Rate 20 Respiratory Effort / Characteristics Non-Labored Spontaneous Respiratory Depth Normal Blood Pressure Blood Pressure [Left Arm] 153/108 H Blood Pressure Mean Blood Pressure Mean [Left Arm] 123 Blood Pressure Position Blood Pressure Position [Left Arm] Sitting Pulse Oximetry 92 Oxygen Delivery Method Nasal Cannula Oxygen Flow Rate 2 Sepsis Recent Fever Within 48 Hours Sepsis New/Unexplained Change in Mental Status Sepsis Action Taken by Nursing CONSTITUTIONAL: Healthy and well nourished. Patient appears in moderate discomfort with complaint of right rib pain. HEENT: Normocephalic, atraumatic. Pupils equal, round and reactive. No scleral icterus or conjunctival injection. NECK: Full active range of motion without discomfort. LYMPHATICS: No cervical chain adenopathy. RESPIRATORY: Clear to auscultation bilaterally with no wheezing, crackles, rhonchi or stridor. CARDIOVASCULAR: Regular rate and rhythm with no murmurs, rubs or gallops. GASTROINTESTINAL: Bowel sounds present in all quadrants. MUSCULOSKELETAL: Full range of motion of all joints without discomfort. INTEGUMENTARY: No rash or other significant dermatologic conditions noted. HEMATOLOGIC: No ecchymosis or petechiae. PSYCHIATRIC: Positive affect. NEUROLOGIC: No focal neurologic deficits noted. Course Course Patient history and physical exam were performed. Nurses notes were reviewed. Vital signs were reviewed from triage, showing a mild tachycardia, tachypnea and hypoxia with a pulse ox of 86% on room air. Patient also had an elevated blood pressure 188/112. The patient was placed on oxygen via nasal cannula at 2 L/min with increase of his pulse ox to around 94%. This was observed on my initial presentation of the patient. I did review documentation from the patient's ED visit yesterday, showed that the patient was offered admission, but left AGAINST MEDICAL ADVICE. IV access was established, labs were drawn, including blood cultures. The patient was administered a 2 L normal saline bolus until additional labs could be completed to rule out sepsis. The patient was also administered IV Rocephin and Zithromax antibiotics. The patient was also administered IV Toradol and morphine for pain control. An ECG was performed, showing a sinus tachycardia and right axis deviation. The patient was placed on front desk monitor while in the emergency department. A two-view chest x-ray showed progressive multifocal pneumonia. Review of labs showed a relatively normal CBC and coagulation studies. The patient is hypokalemic, calcemic and magnesemic. These lab results were delayed, and did not result until [facility] Procalcitonin and lactate were normal. Urinalysis did not show evidence for obvious infection. It is noted that the patient did have a negative [employer] PCR respiratory panel yesterday, and did test positive for group A strep, which should be covered with his previously prescribed Augmentin antibiotics. Findings were discussed with the patient. Given his hypoxic state as well as progressive multifocal pneumonia, I again recommended admission. The patient was in agreement at this time, however voiced concern for cost of admission. I indicated that this can be worked out later, and expressed my concern for his healing, and risk for progressively worsening pneumonia and possible sepsis without adequate treatment. Patient did agree with admission. [facility] Please see their dictation for further treatment and final disposition. Administered Medications Albuterol (Albut/Ipratrop 3mg/0.5mg Neb 3 Ml Vial) 3 ml NEB Q6R PRN; Protocol PRN Reason: Wheezing Stop: 11/11/24 13:37 Last Admin: 10/12/24 15:45 Dose: 3 ml Documented By: GCC Insulin Aspart (Insulin Aspart Per Unit Charge) 0 units SC ACHS ALPHONSO Stop: 11/11/24 13:44 Last Admin: 10/12/24 14:13 Dose: Not Given Documented By: NRB Discontinued Medications Azithromycin (Azithromycin 500 Mg Vial) 500 mg IV NOW STA; Protocol Stop: 10/12/24 08:20 Last Admin: 10/12/24 09:28 Dose: Not Given Documented By: CC Sodium Chloride (Nss) 1,000 mls @ 999 mls/hr IV .Q1H1M [facility] Stop: 10/12/24 10:15 Last Infusion: 10/12/24 11:40 Dose: Infused Documented By: Admin: 10/12/24 09:28 Dose: 999 mls/hr Documented By: Infusion: 10/12/24 09:21 Dose: Infused Documented By: Admin: 10/12/24 08:20 Dose: 999 mls/hr Documented By: CC Ceftriaxone Sodium (Rocephin) 2,000 mg in 50 mls @ 100 mls/hr IV NOW STA Stop: 10/12/24 08:48 Last Infusion: 10/12/24 09:55 Dose: Infused Documented By: Admin: 10/12/24 09:23 Dose: 100 mls/hr Documented By: CC Azithromycin 500 mg/ Sodium (Chloride) 255 mls @ 127.5 mls/hr IV NOW ONE Stop: 10/12/24 11:29 Last Infusion: 10/12/24 12:12 Dose: Infused Documented By: Admin: 10/12/24 09:57 Dose: 127.5 mls/hr Documented By: CC Magnesium Sulfate/Dextrose (Magnesium Sulfate / D5w) 1 gm in 100 mls @ 50 mls/hr IV Q2H [facility] Stop: 10/12/24 14:44 Last Infusion: 10/12/24 16:09 Dose: Infused Documented By: Admin: 10/12/24 14:09 Dose: 50 mls/hr Documented By: Infusion: 10/12/24 13:56 Dose: Infused Documented By: Admin: 10/12/24 11:36 Dose: 50 mls/hr Documented By: CC Ketorolac Tromethamine (Ketorolac Tromethamine 15 Mg/Ml Vial) 15 mg IV NOW STA Stop: 10/12/24 10:03 Last Admin: 10/12/24 10:33 Dose: 15 mg Documented By: CC Morphine Sulfate (Morphine Sulfate 4 Mg/Ml 1 Ml Carp\Vial) 4 mg IV NOW STA Stop: 10/12/24 10:03 Last Admin: 10/12/24 10:34 Dose: 4 mg Documented By: CC Potassium Chloride (Potassium Chloride Crtab 20 Meq Tabcr) 40 meq PO NOW STA Stop: 10/12/24 10:37 Last Admin: 10/12/24 11:35 Dose: 40 meq Documented By: EVAN Medical Decision Making Medical Records Attestation: I reviewed the patient's medical records. Home Medications was personally reviewed by me Laboratory Data Attestation: I reviewed the patient's lab results. 10/12/24 08:10 10/12/24 09:12 Lab Results 10/12/24 10/12/24 10/12/24 Range/Units 08:10 08:28 09:12 WBC 5.33 (4.8-10.8) K/ul RBC 7.58 H (4.70-6.10) M/uL Hgb 18.6 H (14.0-18.0) g/dl Hct 60.6 H (42.0-52.0) % MCV 79.9 L (80.0-100.0) fL MCH 24.5 L (25.0-34.0) pg MCHC 30.7 L (32.0-36.0) g/dL RDW Std Deviation 55.1 H (36.4-46.3) fL RDW Coeff of Juan 21.3 H (11.5-14.5) % Plt Count 140 (130-400) K/uL Immature Gran % (Auto) 0.4 % Neut % (Auto) 68.0 % Lymph % (Auto) 15.8 % [place] % (Auto) 12.6 % Eos % (Auto) 2.6 % Baso % (Auto) 0.6 % Neut # (Auto) 3.63 (1.40-6.50) K/uL Lymph # (Auto) 0.84 L (1.20-3.40) K/uL [place] # (Auto) 0.67 H (0.11-0.59) K/uL Eos # (Auto) 0.14 (0.00-0.50) K/uL Baso # (Auto) 0.03 (0.00-0.20) K/uL Immature Gran # (Auto) 0.02 (0.01-0.20) K/uL Toxic Vacuolation 1+ Polychromasia 1+ Anisocytosis Present PT Cancelled 10.8 INR Cancelled 1.0 APTT Cancelled 28 PTT Ratio Cancelled 1.0 Sodium Cancelled 138 Potassium Cancelled 3.0 L Chloride Cancelled 107 Carbon Dioxide Cancelled 26 Anion Gap Cancelled 5 BUN Cancelled 9 Creatinine Cancelled 0.98 Est Cr Clr Drug Dosing Cancelled 136.8 eGFR Cancelled 95.12 BUN/Creatinine Ratio Cancelled 9.2 L Glucose Cancelled 123 H Lactate 1.2 (0.4-2.0) mmol/L Calcium Cancelled 6.4 L Magnesium Cancelled 1.5 L Total Bilirubin Cancelled 0.6 AST Cancelled 31 ALT Cancelled 23 Alkaline Phosphatase Cancelled 42 Troponin I High Sens Cancelled 9.0 Total Protein Cancelled 5.7 L Albumin Cancelled 3.1 L Globulin Cancelled 2.6 Albumin/Globulin Ratio Cancelled 1.2 Procalcitonin Cancelled 0.04 Imaging Data Attestation: I personally reviewed and interpreted this imaging study as follows: My Impression: My interpretation of a two-view chest x-ray shows a progressive multifocal pneumonia when compared with portable chest x-rays from yesterday. Radiologist report was also reviewed with concurrence. Radiologist's Impression: Chest X-Ray 10/12/24 08:07 XR chest 2V PA/lateral HISTORY: 49 years-old Male RUL pneumonia acute shortness of breath COMPARISON: 10/11/2024 TECHNIQUE: PA and lateral views of the chest FINDINGS: Cardiac silhouette is enlarged, unchanged. Stable right hemidiaphragmatic elevation. No pneumothorax or pleural effusion. Bilateral mixed interstitial and alveolar opacities have progressed from prior. There is persistent dense right upper lobe airspace consolidation. IMPRESSION: Findings compatible with progressive multifocal pneumonia. ACT 112: Negative or not required by law. The above report was generated using voice recognition software. It may contain grammatical, syntax or spelling errors. Electronically signed by: Pj Young M.D. 10/12/2024 8:50 AM ECG Data Attestation: I personally reviewed and interpreted this ECG as follows: Indication: + chest pain and + other Rate (beats per minute): 102 Rhythm: + sinus tachycardia ECG Intervals/blocks: + Normal QRS ECG [place]: + Right axis deviation ECG ST segments: + Normal ST segments Comparison ECG Date: from (05/17/2024) Change: the following changes noted (No QT prolongation is seen on today's ECG when compared to his prior ECG.) MDM Narrative Cardiac monitoring: An order was placed for continuous cardiac monitoring. The monitor shows a rate of 102 bpm with a sinus tachycardic rhythm. quality assurance monitor chassis history was reviewed throughout the evaluation, and no dysrhythmias were noted. See ED Course section for further details of today's visit. The patient presents for evaluation of ongoing rib pain, cough and shortness of breath. The patient was seen in the emergency department yesterday with portable chest x-ray showing evidence for community-acquired pneumonia. The patient was also hypoxic in the emergency department. Admission was recommended, however the patient signed out AGAINST MEDICAL ADVICE. He now returns with progressively worsening symptoms. Chest x-ray today does show progressive multifocal pneumonia. The patient was also notably hypoxic upon presentation to the emergency department. The patient was able to maintain his oxygen saturation levels while on oxygen via nasal cannula at 2 L/min. Patient does meet SIRS criteria, however fortunately the patient does have a normal lactate and procalcitonin level. The patient will be treated with IV Rocephin and azithromycin. The patient will be admitted to the hospital for further workup and management. The patient is noted to have additional electrolyte abnormalities that can be further corrected by the hospitalist service. These labs were not completed prior to discussing the case with them. Please see hospitalist dictations for further treatment and final disposition. Impression Multifocal pneumonia, Hypoxia, Hypomagnesemia, Acute hypokalemia, Group A streptococcal infection Discharge Plan Visit Data Chief Complaint: Abnormal Labs/Diagnostic Testing Stated Complaint: LOX OX ED Provider: Keyana العلي ED Midlevel Provider: Ronen Mulligan Discharge Problem: Multifocal pneumonia, Hypoxia, Hypomagnesemia, Acute hypokalemia, Group A streptococcal infection Patient Disposition: Admitted As Inpatient Discharge Instructions Interventions: ED Discharge Assessment Last Done: 10/12/24 13:39
[2024-10-12 10:07] LABS: Albumin Globulin Ratio 1.2 (0.9-2); Albumin Level 3.1 gm/dl (3.4-5.0); BUN Creatinine Ratio 9.2 (10-20); Bilirubin,Total 0.6 mg/dl (0.2-1.0); Calcium 6.4 mg/dl (8.6-10.3); Creatinine Clr Calc Pharmacy 136.8 ml/min; Globulin 2.6 gm/dl (2.5-4.0); Magnesium 1.5 mg/dl (1.7-2.4); Total Protein 5.7 gm/dl (6.0-8.3)
--- NOTE | 2024-10-12 10:07 | History & Physical Report ---
Date of Service October 12, 2024 Assessment & Plan (1) Multifocal pneumonia: (2) Hypoxia: (3) Hypokalemia: (4) Hypomagnesemia: Plan Darin is a 49-year-old male with PMH of T2DM, asthma, gallstone pancreatitis, obesity hypoventilation syndrome, HTN, and polycythemia. He presented on 10/12 for SOB/dyspnea and productive cough x 1 week. Patient was at the emergency department on 10/11, and was offered admission at that time due to hypoxia, but declined. Patient significant other (Bessy) is present at the bedside and provides additional history. Patient symptoms started about a week ago and have included hacking cough, congestion, lightheadedness, right-sided rib pain, pres yncopal episodes, and DOSS. He also had a fever at home up to 100.8 F. #Multifocal pneumonia CXR on arrival revealed findings compatible with progressive multifocal pneumoni a Blood cultures drawn in the ED [facility] on 10/11 negative Urine Legionella ordered, pending Sputum culture ordered, pending No leukocytosis; afebrile; procalcitonin WNL Clinically, patient appears lethargic and sicker than his labs would suggest; ? Immunocompromised Touched base with pulmonology, who report that this is consistent with a strep A pneumonia; no need for consult Incentive spirometry, flutter valve Doxycycline 100 mg IV q12h Ceftriaxone 2000 mg IV q12h Guaifenesin 1200 mg p.o. q12h DuoNeb Q6R #Hypoxia Patient is not on supplemental oxygen at baseline BNP ordered, pending Titrate supplemental oxygen as needed to maintain SpO2 >94% Continuous pulse oximetry #Group A strep Strep a positive on 10/11 Patient denies sore throat; non-erythematous on clinical exam Antibiotics (as above) #Hypokalemia/hypomagnesemia Continue repletion Hold HCTZ #Sleep apnea CPAP HS #Type 2 diabetes mellitus Last A1c at 5.8% on 11/07/2023 Hold metformin SSI with target BSG range 110-140mg/dL, CF 50, carb ratio 15 T2DM diet BSG ACHS Adjust regimen as needed AM A1c #Exophthalmos TSH and PTH ordered, pending [facility] Full [facility] T2DM diet VTE PPx: Lovenox 40 mg SQ q12h History of Present Illness Chief Complaint: Productive cough, SOB/dyspnea Primary Care Provider: EDMOND Arambula Darin is a 49-year-old male with PMH of T2DM, asthma, gallstone pancreatitis, obesity hypoventilation syndrome, HTN, and polycythemia. He presented on 10/12 for SOB/dyspnea and productive cough x 1 week. Patient was at the emergency department on 10/11, and was offered admission at that time due to hypoxia, but declined. Patient significant other (Bessy) is present at the bedside and provides additional history. Patient symptoms started about a week ago and have included hacking cough, congestion, lightheadedness, right-sided rib pain, presyncopal episodes, and DOSS. He also had a fever at home up to 100.8 F. He has been taking Becca[place], Tessalon Perles, ibuprofen, and using his inhaler for his symptoms. His shortness of breath became worse on Monday 10/09. Additionally, his right rib pain started around 2 AM this morning. Patient only recently started on antibiotics when he was discharged from the ER yesterday on 10/11 (azithromycin and Augmentin). He does endorse pleuritic CP when coughing, and may exhibit hemoptysis in his cough. No prior history of DVT/PE. He wears a CPAP at night. No submental oxygen at baseline. He reports he took his regular morning medicine today. No recent change in medications. Patient denies smoking, tobacco use, recent alcohol use. He denies prior history of COPD or tuberculosis exposures. Patient is hypertensive at 153/108, and tachycardic at 102 bpm at time of admission; SpO2 92% on 2L NC. ED course: NSS 1000 mL IV Azithromycin 500 mg IV Ceftriaxone 2000 mg IV Toradol 15 mg IV Morphine sulfate 4 mg IV ROS: Patient endorses fever, productive cough, right sided rib pain, SOB when coughing, and lightheadedness due to coughing. Patient denies syncope, headache, dizziness, rashes, tick bites, chest pain, chest palpitations, abdominal pain, N/V/D, changes in urinary/bowel habits, redness or swelling in the legs. Allergies Allergy/AdvReac Type Severity Reaction Status Date / Time lisinopril AdvReac Severe swelling Verified 10/12/24 10:45 of face sulfamethoxazole AdvReac Severe swelling Verified 10/12/24 10:45 [From Bactrim] of face trimethoprim [From Bactrim] AdvReac Severe swelling Verified 10/12/24 10:45 of face metformin AdvReac Intermediate Diarrhea Verified 10/12/24 10:45 Iodinated Contrast Media AdvReac NAUSEA, Verified 10/12/24 10:45 VOMITING Home Medications Medication Instructions Recorded Confirmed Type atorvastatin 20 mg tablet 20 mg PO HS 11/23/21 10/12/24 History fluticasone propionate 50 2 spray intranasal DAILY #16 grams 01/15/22 10/12/24 Rx mcg/actuation nasal spray,suspension (Flonase Allergy Relief) lidocaine 5 % topical gel See Rx Instructions topical TID 06/28/22 10/12/24 Rx PRN Pain #60 grams cetirizine 10 mg tablet (Zyrtec) 10 mg PO DAILY #90 tabs 01/02/23 10/12/24 Rx tadalafil 10 mg tablet (Cialis) 10 mg PO DAILY PRN sexual activity 01/02/23 10/12/24 Rx #30 tabs losartan 100 mg tablet 100 mg PO HS #90 tabs 06/26/23 10/12/24 Rx cyclobenzaprine 5 mg tablet 5 mg PO TID PRN muscle spasm #45 11/07/23 10/12/24 Rx tabs metoprolol succinate 50 mg 50 mg PO HS #90 tabs 11/07/23 10/12/24 Rx tablet,extended release 24 hr albuterol sulfate 90 mcg/actuation 1 puff inhalation QID PRN 08/05/24 10/12/24 Rx aerosol inhaler Shortness Of Breath Or Wheezing #18 grams amoxicillin 875 mg-potassium 1 tab PO BID #14 tabs 10/11/24 10/12/24 Rx clavulanate 125 mg tablet azithromycin 250 mg tablet 250 mg PO DAILY 4 days #4 tabs 10/11/24 10/12/24 Rx ipratropium 0.5 mg-albuterol 3 mg 3 ml inhalation Q8H PRN wheezing 10/11/24 10/12/24 Rx (2.5 mg base)/3 mL nebulization #180 mL soln hydrochlorothiazide 50 mg tablet 50 mg PO 2XWK 10/12/24 10/12/24 History spironolactone 100 mg tablet 100 mg PO HS 10/12/24 10/12/24 History Past Med/Surg History Problem List (Updated 10/12/24 @ 16:29 by Ronen Mulligan) Group A streptococcal infection (Acute) Acute hypokalemia (Acute) Hypomagnesemia (Acute) Hypoxia (Acute) Multifocal pneumonia (Acute) Hypomagnesemia Hypokalemia Hypoxia Multifocal pneumonia Community acquired pneumonia of right upper lobe of lung (Acute) Atypical chest pain Type 2 diabetes mellitus Periumbilical pain Keloid scar Seasonal allergies Poorly-controlled hypertension Polycythemia Follows with heme per PCP records- gets therapeutic phlebotomies every 2-4 weeks Asthma Hypertension Tobacco use disorder TELMA (obstructive sleep apnea) Morbid obesity with BMI of 50.0-59.9, adult (Acute) Heart murmur Obesity hypoventilation syndrome Erectile dysfunction Cholelithiasis Gallstone pancreatitis Medical History 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 Acute renal insufficiency Testicular torsion Surgical History History of liver biopsy (11/16/21) p Laparoscopic Cholecystectomy- DO clyde Wyatt Laparoscopic Umbilical Hernia Repair, Right Lobe Liver Biopsy - Tray Hankins, 11/16/2021 H/O umbilical hernia repair (11/16/21) p Laparoscopic Cholecystectomy- DO clyde Wyatt Laparoscopic Umbilical Hernia Repair, Right Lobe Liver Biopsy - Tray Hankins, DO 11/16/2021 Hx laparoscopic cholecystectomy (11/16/21) p Laparoscopic Cholecystectomy- Tray Hankins DO s Laparoscopic Umbilical Hernia Repair, Right Lobe Liver Biopsy - Tray Hankins, DO 11/16/2021 History of colonoscopy History of esophagogastroduodenoscopy (EGD) History of testicular surgery hx testicular torsion S/P tooth extraction H/O shoulder surgery History of arthroscopic knee surgery Family History Father Myocardial infarction Denies family history of Ovarian cancer Prostate cancer Breast cancer Colorectal cancer Social History Smoking Status: Never smoker Tobacco Type: Smokeless Tobacco (Dip or Chew) Second Hand Exposure: Yes; Do You Dip or Chew Tobacco: Yes; Tobacco Cessation Education Requested by Patient: No Hx Alcohol Use: No Hx Substance Use: No Preferred Language: Syrian Communication Ability: Effective Visual Impairment: No Limitations Hearing Ability: Normal Radiation Therapy Technologist Required: No Beliefs That Will Affect Care: None marital status: Single Current Living Situation: Significant Other Current Living Situation Comment: Lives with SARAH Doherty current occupational status: employed How many Children do You have: 0 Other Information That Helps Us Care for You: No Feels Safe at Home: Yes Childhood Exposure to Second-Hand Smoke: Yes Diet: regular caffeine: Yes Physical Activity Frequency: Other Physical Activity Frequency Comment: pt lifts weights- depends how many times a day Seatbelt Use: never Sunscreen Use: No Assistive Devices: Glasses Assistive Devices Comment: Pt wears glasses but does not have with him Review of Systems Review of Systems: See HPI above Physical Exam Physical Exam: General: no acute distress; significant other at bedside; patient appears extremely lethargic at bedside; potentially toxic appearing; cooperative; SpO2 92% on 2L NC HEENT: normocephalic, atraumatic; erythematous sclerae; exophthalmos; PERRLA; vision and hearing intact; oral mucosa is coral pink; oropharynx is nonerythematous, without exudates Neck: supple; trachea midline Skin: warm, dry without signs of tenting; no cyanosis; no rashes, bruising, lesions, or erythema noted CV: chest wall NTP; RR, mildly tachycardic around 100 bpm; S1/S2 normal; no murmurs/rubs/gallops; pulses intact and symmetric at radial, DP, and PT; no rashes appreciated on the abdomen, flanks, or chest wall Lungs: no acute respiratory distress; symmetrical chest wall expansion; bibasilar crackles in the lower lung chand bilaterally ABD: Soft, NTP; BS present; no rebound/guarding; moderate distention secondary to patient's body habitus MSK: no tics or fasciculations; no edema noted in the LEs b/l, nonerythematous Neuro: A&Ox3; normal mood and affect; fluent speech; no focal deficits; sensation grossly intact and symmetric in the LEs bilaterally Results & Data Results & Data Vital Signs (Past 12 Hours) Vital Signs Temp Pulse Pulse Resp BP BP Pulse Ox 10/12/24 09:33 102 H 20 153/108 H 92 10/12/24 08:45 96 H 10/12/24 08:27 111 H 22 147/105 H 91 10/12/24 07:52 36.8 C 115 H 32 H 188/112 H 86 L O2 Del Method O2 Flow Rate 10/12/24 09:33 Nasal Cannula 2 10/12/24 08:45 10/12/24 08:27 Nasal Cannula 2 10/12/24 07:52 Room Air Laboratory Results Abnormal lab results 10/12/24 10/12/24 Range/Units 08:10 Unknown RBC 7.58 H (4.70-6.10) M/uL Hgb 18.6 H (14.0-18.0) g/dl Hct 60.6 H (42.0-52.0) % MCV 79.9 L (80.0-100.0) fL MCH 24.5 L (25.0-34.0) pg MCHC 30.7 L (32.0-36.0) g/dL RDW Std Deviation 55.1 H (36.4-46.3) fL RDW Coeff of Juan 21.3 H (11.5-14.5) % Lymph # (Auto) 0.84 L (1.20-3.40) K/uL [place] # (Auto) 0.67 H (0.11-0.59) K/uL Urine Protein 3+ H (Negative) Urine Blood 1+ H (Negative) Diagnostic Findings Chest X-Ray 10/12/24 08:07 XR chest 2V PA/lateral HISTORY: 49 years-old Male RUL pneumonia acute shortness of breath COMPARISON: 10/11/2024 TECHNIQUE: PA and lateral views of the chest FINDINGS: Cardiac silhouette is enlarged, unchanged. Stable right hemidiaphragmatic elevation. No pneumothorax or pleural effusion. Bilateral mixed interstitial and alveolar opacities have progressed from prior. There is persistent dense right upper lobe airspace consolidation. IMPRESSION: Findings compatible with progressive multifocal pneumonia. ACT 112: Negative or not required by law. The above report was generated using voice recognition software. It may contain grammatical, syntax or spelling errors. Electronically signed by: Pj Young M.D. 10/12/2024 8:50 AM ECG Additional Comments: ECG revealed sinus tachycardia at 102 bpm; QTc 458 Code Status & VTE Plan Code Status Full code VTE Prophylaxis Plan VTE Prophylaxis will be ordered: Yes Supervising Physician Co-Signing Physician Notes I personally saw and examined the patient. I independently reviewed the labs, EKG, imaging, problem list, medication list, past medical history and family history. I verified all markham points and agree with Broderick Christian PA-C with the following exceptions and/or additions: 49 year old male presents to the ER with shortness of breath and hypoxia. O/E Morbid obesity, no accessory muscle use or respiratory distress, Bilateral crackles throughout, no wheezing, HS RRR, no murmurs, abdo SNT A/P Multifocal pneumonia with group A strep positive swab - ceftriaxone + doxycycline, aim O2 > 90% PG Care Time/CCT Total # of Minutes Spent Total Time Spent with Patient: Total time spent is greater than 50% in coordination of care (as documented) at patient's floor/unit and/or counseling patient: Coding [place] [address] INT INP/OBS CARE 3/75MIN Patient Type Established Medical Decision Making High Complexity Diagnoses Multifocal pneumonia J18.9 Hypoxia R09.02 Hypokalemia E87.6 Hypomagnesemia E83.42
[2024-10-12 10:17] LABS: Partial Thromboplastin Time 28 Seconds (21-31); Prothrombin Time 10.8 Seconds (9.0-12.0)
[2024-10-12] MEDS: KETOROLAC TROMETHAMINE 15 MG/ML VIAL IV STA (10:33)
[2024-10-12] MEDS: MoRPHine SULFATE 4 MG/ML 1 ML CARP\\VIAL IV STA (10:34)
[2024-10-12] MEDS: POTASSIUM CHLORIDE CRTAB 20 MEQ TABCR PO STA (11:35)
[2024-10-12] MEDS: MAGNESIUM SULFATE / D5W 1 GM/100 ML BAG IV SCH (11:36)
[2024-10-12] MEDS ORDERED: GLUCOSE 40% GEL 15 GM TUBE PO PRN (13:38)
[2024-10-12] MEDS ORDERED: GLUCAGON FOR INJ 1 MG VIAL SQ PRN (13:38)
[2024-10-12] MEDS ORDERED: ACETAMINOPHEN 325 MG TAB PO PRN (13:38)
[2024-10-12] MEDS ORDERED: CARBOHYDRATES FOR HYPOGLYCEMIA PO PRN (13:38)
[2024-10-12] MEDS ORDERED: DEXTROSE 50% 50 ML SYRINGE IV PRN (13:38)
[2024-10-12] MEDS ORDERED: GLUCOSE 10 TAB/TUBE PO PRN (13:38)
[2024-10-12] MEDS: INSULIN ASPART PER UNIT CHARGE SC SCH (14:13)
[2024-10-12] MEDS: ALBUT/IPRATROP 3MG/0.5MG NEB 3 ML VIAL NEB PRN (15:45)
[2024-10-12] MEDS: DOXYCYCLINE HYCLATE 100 MG in DEXTROSE 5% MINI-B 100 ML IV SCH (21:52)
[2024-10-12] MEDS: ATORVASTATIN 20 MG TAB PO SCH (21:57)
[2024-10-12] MEDS: LOSARTAN POTASSIUM 50 MG TAB PO SCH (21:59)
[2024-10-12] MEDS: METOPROLOL SUCC 50MG EXT REL TAB PO SCH (21:59)
[2024-10-12] MEDS: SPIRONOLACTONE 100 MG TAB PO SCH (22:00)
[2024-10-12] MEDS: guaiFENesin 600 MG TABCR PO SCH (22:01)
[2024-10-12] MEDS: MELATONIN 3 MG TAB PO PRN (22:02)
--- NOTE | 2024-10-13 05:54 | Electrocardiogram Report ---
Test Reason : Blood Pressure : */* mmHG Vent. Rate : 102 BPM Atrial Rate : 102 BPM P-R Int : 198 ms QRS Dur : 106 ms QT Int : 352 ms P-R-T Axes : 42 236 54 degrees QTcB Int : 458 ms Sinus tachycardia Possible Left atrial enlargement Right superior axis deviation Poor R wave progression, consider anterior OK vs. lead placement vs. LVH Abnormal ECG When compared with ECG of 17-May-2024 19:46, No significant change was found Confirmed by Peter Sadler ([id number]) on 10/13/2024 5:54:39 AM Referred By: Confirmed By: Peter Sadler
[2024-10-13 07:58] LABS: Hematocrit (blood only) 58.9 % (42.0-52.0); Hemoglobin 17.6 g/dl (14.0-18.0); Mean Corpuscular Hemoglobin 24.2 pg (25.0-34.0); Mean Corpuscular Hgb Conc 29.9 g/dL (32.0-36.0); Mean Corpuscular Volume 81.1 fL (80.0-100.0); Platelet Count 148 K/uL (130-400); RDW Coefficient of Variation 21.2 % (11.5-14.5); Red Blood Count 7.26 M/uL (4.70-6.10); White Blood Count 5.33 K/ul (4.8-10.8)
[2024-10-13 08:09] LABS: BUN Creatinine Ratio 9.4 (10-20); Calcium 9.1 mg/dl (8.6-10.3); Creatinine Clr Calc Pharmacy 120.6 ml/min; Potassium 4.6 mmol/L (3.5-5.1)
[2024-10-13 08:21] LABS: Anisocytosis Present; Basophils # (auto) 0.03 K/uL (0.00-0.20); Basophils % (auto) 0.6 %; Eosinophils # (auto) 0.24 K/uL (0.00-0.50); Eosinophils % (auto) 4.5 %; Immature Granulocytes # (auto) 0.03 K/uL (0.01-0.20); Immature Granulocytes % (auto) 0.6 %; Lymphocytes # (auto) 1.14 K/uL (1.20-3.40); Lymphocytes % (auto) 21.4 %; Monocytes # (auto) 0.65 K/uL (0.11-0.59); Monocytes % (auto) 12.2 %; Neutrophils # (auto) 3.24 K/uL (1.40-6.50); Neutrophils % (auto) 60.7 %; Polychromasia 1+
[2024-10-13] MEDS: FLUTICASONE PROPIONATE NA SPR 16 GM BTL SCH (08:52)
[2024-10-13 09:58] LABS: Magnesium 2.1 mg/dl (1.7-2.4)
[2024-10-13] MEDS: cefTRIAXone SODIUM 2,000 MG/50 ML BAG IV SCH (11:03)
[2024-10-13] MEDS: CETIRIZINE HCL 10 MG TABLET PO SCH (11:03)
[2024-10-13 11:09] LABS: Estimated Average Glucose 134 mg/dl; Hemoglobin A1C 6.3 % (4.5-5.6)
--- NOTE | 2024-10-13 19:27 | Hospitalist Progress Note ---
Date of Service October 13, 2024 Assessment & Plan (1) Multifocal pneumonia: Plan: b/l pneumonia, likely community acquired day #2 rocephin IV initially received azithromycin in ER on 10/12 for atypical coverage, then changed to IV doxy upon admission can likely transition to PO levaquin 750mg daily to complete course plan total 7 days of IV/PO abx sputum cx thus far negative resp [facility] negative throat swab - positive for group A strep; pneumonia could be due to GAS, but other pathogens (ie strep pneumo, etc) also possible legionella urine ag negative (2) Hypoxia: Plan: had transient O2 requirement on 10/12 - now off he does use 3 L O2 blended with BIPAP at night-time - continue such plan formal 2-step O2 test before discharge home (3) Hypokalemia: Plan: replaced resolved likely due to chronic diuretic use at home (4) Hypomagnesemia: Plan: replaced resolved likely 2nd to chronic diuretic use at home (5) Sleep apnea: Plan: cont BIPAP at night with blended O2, 3 L (6) Group A streptococcal infection: Plan: throat swab + for such tested + for such in 2023 as well could be carrier abx for #1 will suffice; denies any pharyngitis symptoms at this time (7) Type 2 diabetes mellitus: Plan: a1c 6.3% controlled does not appear he is on meds for such at home ? but metformin mentioned in admit H/P will clarify with patient (8) Poorly-controlled hypertension: Plan: increase meto succ to 75mg daily cont aldactone cont losartan resume HCTZ at discharge but would likely suggest he take a small dose daily rather than just twice/week (9) Tobacco use disorder: Plan: student services counselor to quit (10) Morbid obesity with BMI of 50.0-59.9, adult: Plan: BMI 55 (11) Asthma: Plan: no exacerbation at this time hold off on systemic steroids for now nebs prn (12) Polycythemia: Plan: recheck CBC am secondary polycythemia from chronic hypoxia?? other? gets phlebotomy regularly per outpatient records? Plan VTE PPx: Lovenox 40 mg SQ q12h Admission and Anticipated Discharge Date Admission Date: October 12, 2024 Subjective patient sitting in the chair comfortably reports cough is stable productive of purulent sputum - but improved no dyspnea at rest a little dyspnea with peak walking I had staff walk him in hallway - o2 sats were 90s most of walk, then dropped to <90% at conclusion of walk - but quickly rebounded he is eating robustly has had asthma for 20+ years denies any sore throat Review of Systems Review of Systems: gen - no further fevers; no chills cv - no chest pain pulm - no hemoptysis Physical Exam Physical Exam: gen - morbidly obese, NAD, sitting in chair, nontoxic neck - unable to assess for JVD due to neck size but doubt any JVD mouth - MMM, mild posterior throat erythema heart - RRR, s1 s2 lungs - mildly decreased BS bases, no adventitious sounds abd - soft NT ND BS+ ext - no edema, pulses 2+ b/l Results & Data Results & Data Vital Signs (Past 12 Hours) Vital Signs Temp Pulse Pulse Resp BP BP Pulse Ox 10/13/24 17:22 93 H 18 92 10/13/24 15:09 36.9 C 96 H 20 170/112 H 92 10/13/24 13:03 83 10/13/24 12:03 36.5 C 90 16 176/106 H 93 10/13/24 08:36 83 18 92 10/13/24 07:44 O2 Del Method 10/13/24 17:22 Room Air 10/13/24 15:09 Room Air 10/13/24 13:03 10/13/24 12:03 Room Air 10/13/24 08:36 Room Air 10/13/24 07:44 Room Air Laboratory Results Laboratory Results - last 24 hr 10/12/24 10/13/24 Unknown 07:22 WBC 5.33 RBC 7.26 H Hgb 17.6 Hct 58.9 H MCV 81.1 MCH 24.2 L MCHC 29.9 L RDW Std Deviation 57.0 H RDW Coeff of Juan 21.2 H Plt Count 148 Immature Gran % (Auto) 0.6 Neut % (Auto) 60.7 Lymph % (Auto) 21.4 [place] % (Auto) 12.2 Eos % (Auto) 4.5 Baso % (Auto) 0.6 Neut # (Auto) 3.24 Lymph # (Auto) 1.14 L [place] # (Auto) 0.65 H Eos # (Auto) 0.24 Baso # (Auto) 0.03 Immature Gran # (Auto) 0.03 Polychromasia 1+ Anisocytosis Present Sodium 133 L Potassium 4.6 D Chloride 100 Carbon Dioxide 29 Anion Gap 4 BUN 11 Creatinine 1.17 Est Cr Clr Drug Dosing 120.6 eGFR 76.90 BUN/Creatinine Ratio 9.4 L Glucose 101 H Estimat Average Glucose 134 Hemoglobin A1c 6.3 H Calcium 9.1 D Magnesium 2.1 Urine Legionella Ag SEE NOTE Diagnostic Findings Microbiology 10/12/24 Unknown Sputum, Expectorated Gram Stain - Final 10/12/24 Unknown Sputum, Expectorated Sputum Culture - Preliminary Moderate normal rayna present, final report to follow. 10/12/24 09:12 Blood Aerobic Blood Culture - Preliminary No growth in Aerobic bottle after 24 hours. 10/12/24 09:12 Blood Anaerobic Blood Culture - Preliminary No growth in Anaerobic bottle after 24 hours. 10/12/24 08:28 Blood Aerobic Blood Culture - Preliminary No growth in Aerobic bottle after 24 hours. 10/12/24 08:28 Blood Anaerobic Blood Culture - Preliminary No growth in Anaerobic bottle after 24 hours. PG Care Time/CCT Total # of Minutes Spent Total Time Spent with Patient: Total time spent is greater than 50% in coordination of care (as documented) at patient's floor/unit and/or counseling patient: Coding Level of Care Code 50286 SUB INP/OBS CARE 2/35MIN Diagnoses Multifocal pneumonia J18.9 Hypoxia R09.02 Hypokalemia E87.6 Hypomagnesemia E83.42 Sleep apnea G47.30 Group A streptococcal infection B95.0 Type 2 diabetes mellitus E11.9 Poorly-controlled hypertension I10 Tobacco use disorder F17.200 Morbid obesity with BMI of 50.0-59.9, adult E66.01; Z68.43 Asthma J45.909 Polycythemia D75.1
[2024-10-13] MEDS: CYCLOBENZAPRINE HCL 5 MG TAB PO PRN (21:01)
[2024-10-13] MEDS: ENOXAPARIN INJ 40 MG/0.4 ML SYR SQ SCH (21:02)
[2024-10-13] MEDS: METOPROLOL SUCC 25MG EXT REL TAB PO SCH (21:06)
[2024-10-14 06:43] LABS: BUN Creatinine Ratio 12.1 (10-20); Calcium 9.4 mg/dl (8.6-10.3); Creatinine Clr Calc Pharmacy 100.1 ml/min; Potassium 4.9 mmol/L (3.5-5.1)
[2024-10-14 07:06] LABS: Anisocytosis Present; Basophils # (auto) 0.04 K/uL (0.00-0.20); Basophils % (auto) 0.7 %; Eosinophils # (auto) 0.23 K/uL (0.00-0.50); Eosinophils % (auto) 3.9 %; Hematocrit (blood only) 60.3 % (42.0-52.0); Immature Granulocytes # (auto) 0.05 K/uL (0.01-0.20); Immature Granulocytes % (auto) 0.9 %; Lymphocytes # (auto) 1.45 K/uL (1.20-3.40); Lymphocytes % (auto) 24.7 %; Mean Corpuscular Hemoglobin 24.4 pg (25.0-34.0); Mean Corpuscular Hgb Conc 29.9 g/dL (32.0-36.0); Mean Corpuscular Volume 81.8 fL (80.0-100.0); Monocytes # (auto) 0.77 K/uL (0.11-0.59); Monocytes % (auto) 13.1 %; Neutrophils # (auto) 3.34 K/uL (1.40-6.50); Neutrophils % (auto) 56.7 %; Platelet Count 155 K/uL (130-400); Polychromasia 1+; RDW Coefficient of Variation 21.1 % (11.5-14.5); RDW Standard Deviation 57.1 fL (36.4-46.3); Red Blood Count 7.37 M/uL (4.70-6.10); White Blood Count 5.88 K/ul (4.8-10.8)
[2024-10-14 11:26] VITALS: PULSE 74; RESP 20; TEMP 97.7; O2SAT 89
--- NOTE | 2024-10-14 13:06 | Discharge Summary ---
Discharge Summary Date of Service October 14, 2024 Principal Dx & Hospital Course #1 = Principal Diagnosis (1) Multifocal pneumonia: b/l pneumonia, likely community acquired day #2 rocephin IV initially received azithromycin in ER on 10/12 for atypical coverage, then changed to IV doxy upon admission can likely transition to PO levaquin 750mg daily to complete course plan total 7 days of IV/PO abx sputum cx thus far negative resp [employer] negative throat swab - positive for group A strep; pneumonia could be due to GAS, but other pathogens (ie strep pneumo, etc) also possible legionella urine ag negative (2) Hypoxia: had transient O2 requirement on 10/12 - now off he does use 3 L O2 blended with BIPAP at night-time - continue such plan formal 2-step O2 test before discharge home (3) Hypokalemia: replaced resolved likely due to chronic diuretic use at home (4) Hypomagnesemia: replaced resolved likely 2nd to chronic diuretic use at home (5) Sleep apnea: cont BIPAP at night with blended O2, 3 L (6) Group A streptococcal infection: throat swab + for such tested + for such in 2023 as well could be carrier abx for #1 will suffice; denies any pharyngitis symptoms at this time (7) Type 2 diabetes mellitus: a1c 6.3% controlled does not appear he is on meds for such at home ? but metformin mentioned in admit H/P will clarify with patient (8) Poorly-controlled hypertension: increase meto succ to 75mg daily cont aldactone cont losartan resume HCTZ at discharge but would likely suggest he take a small dose daily rather than just twice/week (9) Tobacco use disorder: milieu counselor to quit (10) Morbid obesity with BMI of 50.0-59.9, adult: BMI 55 (11) Asthma: no exacerbation at this time hold off on systemic steroids for now nebs prn (12) Polycythemia: recheck CBC am secondary polycythemia from chronic hypoxia?? other? gets phlebotomy regularly per outpatient records? Plan VTE PPx: Lovenox 40 mg SQ q12h Admission HPI Per Admitting Provider Darin is a 49-year-old male with PMH of T2DM, asthma, gallstone pancreatitis, obesity hypoventilation syndrome, HTN, and polycythemia. He presented on 10/12 for SOB/dyspnea and productive cough x 1 week. Patient was at the emergency department on 10/11, and was offered admission at that time due to hypoxia, but declined. Patient significant other (Bessy) is present at the bedside and provides additional history. Patient symptoms started about a week ago and have included hacking cough, congestion, lightheadedness, right-sided rib pain, presyncopal episodes, and DOSS. He also had a fever at home up to 100.8 F. He has been taking [place], Tessalon Perles, ibuprofen, and using his inhaler for his symptoms. His shortness of breath became worse on Monday 10/09. Additionally, his right rib pain started around 2 AM this morning. Patient only recently started on antibiotics when he was discharged from the ER yesterday on 10/11 (azithromycin and Augmentin). He does endorse pleuritic CP when coughing, and may exhibit hemoptysis in his cough. No prior history of DVT/PE. He wears a CPAP at night. No submental oxygen at baseline. He reports he took his regular morning medicine today. No recent change in medications. Patient denies smoking, tobacco use, recent alcohol use. He denies prior history of COPD or tuberculosis exposures. Patient is hypertensive at 153/108, and tachycardic at 102 bpm at time of admission; SpO2 92% on 2L NC. ED course: NSS 1000 mL IV Azithromycin 500 mg IV Ceftriaxone 2000 mg IV Toradol 15 mg IV Morphine sulfate 4 mg IV ROS: Patient endorses fever, productive cough, right sided rib pain, SOB when coughing, and lightheadedness due to coughing. Patient denies syncope, headache, dizziness, rashes, tick bites, chest pain, chest palpitations, abdominal pain, N/V/D, changes in urinary/bowel habits, redness or swelling in the legs. Discharge Exam gen - morbidly obese, NAD, sitting in chair, nontoxic neck - unable to assess for JVD due to neck size but doubt any JVD mouth - MMM, mild posterior throat erythema heart - RRR, s1 s2 lungs - mildly decreased BS bases, no adventitious sounds abd - soft NT ND BS+ ext - no edema, pulses 2+ b/l Discharge Plan Discharge Items Patient Disposition: Home - Self-Care Reason For Visit: Pneumonia Discharge Diagnosis: 1. pneumonia - improving 2. need for home oxygen - 2 liters with activity/ambulation 3. sleep apnea 4. high blood pressure 5. polycythemia 6. prediabetes Activity: As commented below Activity Comment: rest for the next few days, then gradually increase activity as tolerated Non-emergency contact: Primary Care Provider, Specialist and Dampproofer Call non-emergency contact if: you have any medication questions, your symptoms worsen and you have a fever Follow-up/Referrals: Tray Xie CRNP [Primary Care Provider] - 10/21/24 8:20 am Cole Licea V., [Outside Practitioners] - (see Dr Licea at [facility] for your high hemoglobin (polycythemia); please call his office to schedule ) Stephen Florentino MD [Physician] - 12/16/24 9:45 am Diet: Carb Consistent or DM2 Addtl Attending Provider Instructions: Mr Ballesteros, You were hospitalized for pneumonia. You responded nicely to IV antibiotics. Blood cultures remained negative (we did not find bacteria in the blood). Testing for various viruses - COVID, flu, RSV, rhinovirus, etc - were all negative. You received 3 days of IV antibiotics while hospitalized. You will need to complete 4 more days of antibiotics at home. Please take the following antibiotics - 1. amoxicillin-clavulanate 875mg twice daily x 4 days, first dose TOMORROW AM 10/15/24. You should already have this antibiotic at home. Most common side effect - diarrhea. 2. doxycycline 100mg twice daily x 4 days, first dose TONIGHT 10/14/24. This antibiotic can occasionally cause heartburn/reflux/stomach upset. 3. do not drink alcohol while on antibiotics. 4. feel free to take an ftho-hlr-nojrwfp probiotic for about 1 week; these may help prevent diarrhea from the antibiotics. For your cough/congestion - 1. albuterol nebulizer treatment - 1 treatment every 4-6 hours as needed for cough/wheeze/congestion 2. vznt-kof-jyxrprb mucinex up to 1200mg twice daily as desired On day of discharge we performed a walking oxygen test. This showed that you need to use oxygen when you are active/walking/ambulating. You do not need to use oxygen when sitting or resting. Use 2 liters of oxygen with activity. DO NOT LET OTHERS SMOKE AT YOUR HOME as this can lead to a house fire. With respect to your sleep apnea -- we have set you up to see Dr Florentino from [facility]. Since it has been several years since you saw him you may need a repeat sleep study. Please continue whatever device you were using for sleep until you see Dr Florentino. I have included Dr Licea's new office address/phone number. Please reach out to him for your polycythemia condition. Please take hydrochlorothiazide water pill for your blood pressure EVERY DAY. I would recommend 25mg once daily each morning (previously you were taking 50mg twice a week). You will have better blood pressure control if you take 25mg daily. Have a repeat chest x-ray in about 6 weeks. Return to [facility] if - * you have fevers over 100 degrees (your last fever was on 10/12/24) * you have worsening shortness of breath * you have chest pains * your oxygen level on your finger with a pulse oximeter device is consistently less than 90% ( * you develop severe diarrhea (3 or more liquid stools in 24 hours) * any other concerns It was our pleasure caring for you! Pending Studies at Discharge: Yes Studies:: blood cultures but thus far negative (no blood infection) Stand-Alone Forms: My [facility], Smoking Cessation Medications and DC Order Prescriptions: New doxycycline monohydrate 100 mg tablet 100 mg PO BID Qty: 8 0RF Rx Instructions: first dose PM of 10/14/24. (DME) Oxygen Home Liters Per Minute See Rx Instructions .ROUTE .MEDSUPPLY Qty: 1 0RF Rx Instructions: 2 liters with activity/ambulation. Continued tadalafil [Cialis] 10 mg tablet 10 mg PO DAILY PRN (Reason: sexual activity) Qty: 30 3RF Rx Instructions: administer approximately 30min before sexual activity; do not use more than 1 dose per 24hrs cetirizine [Zyrtec] 10 mg tablet 10 mg PO DAILY Qty: 90 3RF losartan 100 mg tablet 100 mg PO HS Qty: 90 1RF albuterol sulfate 90 mcg/actuation HFA aerosol inhaler 1 puff INHALATION QID PRN (Reason: Shortness Of Breath Or Wheezing) Qty: 18 0RF cyclobenzaprine 5 mg tablet 5 mg PO TID PRN (Reason: muscle spasm) Qty: 45 0RF lidocaine 5 % gel See Rx Instructions topical TID PRN (Reason: Pain) Qty: 60 3RF Rx Instructions: topical three times a day; Apply to affected area PRN for pain. fluticasone propionate [Flonase Allergy Relief] 50 mcg/actuation spray,suspension 2 spray intranasal DAILY Qty: 16 0RF Rx Instructions: administer into each nostril atorvastatin 20 mg tablet 20 mg PO HS ipratropium-albuterol 0.5 mg-3 mg(2.5 mg base)/3 mL solution for nebulization 3 ml inhalation Q8H PRN (Reason: wheezing) Qty: 180 0RF spironolactone 100 mg tablet 100 mg PO HS metoprolol succinate 50 mg tablet extended release 24 hr 50 mg PO HS Qty: 90 1RF amoxicillin-pot clavulanate 875-125 mg tablet 1 tab PO BID Qty: 14 0RF Rx Instructions: start 10/15/24 AM and take for 4 days only. Changed hydrochlorothiazide 50 mg tablet 25 mg PO QAM Qty: 0 0RF Discontinued azithromycin 250 mg tablet 250 mg PO DAILY 4 Days Qty: 4 0RF Rx Instructions: Start Date 10/11/24 x4 day supply Discharge Orders: Discharge Order (Routine); Ordered 10/14/24 Ordered By: Fidel Lawrence/Other Patient Handouts: High Blood Sugar (Hyperglycemia), Hypoglycemia (Low Blood Sugar), Managing Type 2 Diabetes Admission Data Admit Date/Time: 10/12/24 10:36 Attending Provider: Fidel Tierney Admit Provider: Fidel Fitzgerald Primary Care Provider: Tray Xie Other Providers: Fidel Fitzgerald Hospital Stay Data Consultations 10/12/24 10:03 ED Decision to Admit Stat Pending Results Patient Have Any Pending Studies at Discharge: Yes Discharge Instructions Given to Patient (Per Discharging Provider) Mr Ballesteros, You were hospitalized for pneumonia. You responded nicely to IV antibiotics. Blood cultures remained negative (we did not find bacteria in the blood). Testing for various viruses - COVID, flu, RSV, rhinovirus, etc - were all negative. You received 3 days of IV antibiotics while hospitalized. You will need to complete 4 more days of antibiotics at home. Please take the following antibiotics - 1. amoxicillin-clavulanate 875mg twice daily x 4 days, first dose TOMORROW AM 10/15/24. You should already have this antibiotic at home. Most common side effect - diarrhea. 2. doxycycline 100mg twice daily x 4 days, first dose TONIGHT 10/14/24. This antibiotic can occasionally cause heartburn/reflux/stomach upset. 3. do not drink alcohol while on antibiotics. 4. feel free to take an xzzs-ynm-jbjqbes probiotic for about 1 week; these may help prevent diarrhea from the antibiotics. For your cough/congestion - 1. albuterol nebulizer treatment - 1 treatment every 4-6 hours as needed for cough/wheeze/congestion 2. rndn-ayc-fzispng mucinex up to 1200mg twice daily as desired On day of discharge we performed a walking oxygen test. This showed that you need to use oxygen when you are active/walking/ambulating. You do not need to use oxygen when sitting or resting. Use 2 liters of oxygen with activity. DO NOT LET OTHERS SMOKE AT YOUR HOME as this can lead to a house fire. With respect to your sleep apnea -- we have set you up to see Dr Florentino from [facility]. Since it has been several years since you saw him you may need a repeat sleep study. Please continue whatever device you were using for sleep until you see Dr Florentino. I have included Dr Licea's new office address/phone number. Please reach out to him for your polycythemia condition. Please take hydrochlorothiazide water pill for your blood pressure EVERY DAY. I would recommend 25mg once daily each morning (previously you were taking 50mg twice a week). You will have better blood pressure control if you take 25mg daily. Have a repeat chest x-ray in about 6 weeks. Return to [facility] if - * you have fevers over 100 degrees (your last fever was on 10/12/24) * you have worsening shortness of breath * you have chest pains * your oxygen level on your finger with a pulse oximeter device is consistently less than 90% ( * you develop severe diarrhea (3 or more liquid stools in 24 hours) * any other concerns It was our pleasure caring for you! Coding Diagnoses Multifocal pneumonia J18.9 Hypoxia R09.02 Hypokalemia E87.6 Hypomagnesemia E83.42 Sleep apnea G47.30 Group A streptococcal infection B95.0 Type 2 diabetes mellitus E11.9 Poorly-controlled hypertension I10 Tobacco use disorder F17.200 Morbid obesity with BMI of 50.0-59.9, adult E66.01; Z68.43 Asthma J45.909 Polycythemia D75.1
[2024-10-14 13:38] VITALS: BP 116/74
== END 2024-10-14 18:11 | disposition home or self-care (01) | DRG 194 ==
LOC: ED 07:47 → SUATTDRO 10:36 → EDINP 10:36 → 2W 13:39